=== PATIENT | male | born 1975 | race Caucasian/White ===

== ENCOUNTER → 2016-10-22 | Outpatient (CLI) | payer OTHER ==
--- NOTE | 2016-10-22 21:24 | MR ---
EXAMINATION TYPE: MR foot RT wo con DATE OF EXAM: 10/22/2016 5:43 PM COMPARISON: Right foot ultrasound report right foot x-ray April 11, 2015. August 03, 2016. HISTORY: Chronic pain R plantar mid foot per order. Burning and hurting pain for one year per patient . Standard multiplanar, multisequence MRI departmental protocol Multiplanar, multisequence images of the right foot were acquired. FINDINGS: Osseous structures are intact. Joint spaces are maintained. No abnormal bone marrow signal intensity is identified. No significant spurring is seen. Visualized plantar fascia is unremarkable. No worrisome solid or cystic mass or fluid collection is seen. Muscle bulk is preserved. Tendons appe ar grossly intact. IMPRESSION: No significant finding is seen to account for patient's symptoms with particular attention to midfoot plantar surface.
== END | disposition home or self-care (01) ==
LOC: RADMRIMAIN 15:49
PROVIDERS: ATTEND Podiatrist Foot & Ankle Surgery
DX: M79.671 Pain in right foot (principal)

== ENCOUNTER 2017-03-06 19:35 | Emergency (ER) | payer OTHER ==
--- NOTE | 2017-03-06 20:48 | ED ---
Extremity Problem HPI - General Chief complaint: Extremity Problem,Nontraumatic Stated complaint: Right Foot Pain Time Seen by Provider: 03/06/17 20:19 Source: patient Mode of arrival: ambulatory Limitations: no limitations - Related Data Home Medications Medication Instructions Recorded Confirmed Simvastatin [Simvastatin] 20 mg PO HS 03/15/16 08/09/16 Cetirizine HCl [Zyrtec] 10 mg PO DAILY 07/11/16 08/09/16 Citalopram Hydrobromide 20 mg PO DAILY 07/11/16 08/09/16 [Citalopram HBr] Omeprazole 40 mg PO DAILY 07/11/16 08/09/16 Baclofen 10 mg PO HS 08/09/16 08/09/16 Pregabalin [Lyrica] 75 mg PO TID 08/09/16 08/09/16 traMADol HCL [Ultram] 50 mg PO TID PRN 08/09/16 08/09/16 traMADol HCL [Ultram] 100 mg PO TID PRN 08/09/16 08/09/16 traZODone HCL 50 mg PO HS 08/09/16 08/09/16 Previous Rx's Medication Instructions Recorded predniSONE 50 mg PO DAILY #7 tab 08/09/16 valACYclovir HCL [Valtrex] 1,000 mg PO Q8HR #30 tab 08/09/16 Cephalexin [Keflex] 500 mg PO Q8HR #21 cap 03/06/17 Allergies Allergy/AdvReac Type Severity Reaction Status Date / Time morphine Allergy Unknown Verified 03/06/17 19:55 Review of Systems ROS Statement: Those systems with pertinent positive or pertinent negative responses have been documented in the HPI. ROS Other: All systems not noted in ROS Statement are negative. Past Medical History Past Medical History: Hyperlipidemia, Hypertension Additional Past Medical History / Comment(s): chronic back pain and hip pain History of Any Multi-Drug Resistant Organisms: None Reported Past Surgical History: No Surgical Hx Reported Past Psychological History: No Psychological Hx Reported Smoking Status: Never smoker Past Alcohol Use History: None Reported Past Drug Use History: None Reported General Exam Limitations: no limitations Course Vital Signs 03/06/17 19:51 Temperature 98.9 F Pulse Rate 81 Respiratory 20 Rate Blood Pressure 122/75 O2 Sat by Pulse 98 Oximetry Disposition Clinical Impression: Ingrown right greater toenail Disposition: HOME SELF-CARE Condition: Good Instructions: Ingrown Nail (ED) Additional Instructions: Patient advised to take the antibiotics. Continue to do warm soaks with the foot. Pad shoes with extra gauze pads to prevent the toes from rubbing. Follow-up with her telecommunications clerk. Return to the emergency department if any alarming signs or symptoms occur. Prescriptions: Cephalexin [Keflex] 500 mg PO Q8HR #21 cap Referrals: Batool Alfred MD [Primary Care Provider] - 1-2 days Time of Disposition: 20:47
[2017-03-06 20:54] VITALS: BP 142/74; PULSE 67; RESP 16; TEMP 97.8
== END 2017-03-06 20:53 | disposition home or self-care (01) ==
LOC: EC 19:35
DX: L60.0 Ingrowing nail (principal); E78.5 Hyperlipidemia, unspecified; I10 Essential (primary) hypertension; G89.29 Other chronic pain; Z79.899 Other long term (current) drug therapy; Z88.5 Allergy status to narcotic agent
CPT/HCPCS: 99283

== ENCOUNTER 2017-03-31 16:30 | Emergency (ER) | payer OTHER ==
[2017-03-31 16:40] VITALS: BP 119/78; PULSE 70; RESP 20; TEMP 97.5
[2017-03-31] MEDS ORDERED: PROPARACAINE 0.5% OPHTH DROPS 15 ML BTL RIGHT EYE STA (16:43)
--- NOTE | 2017-03-31 16:59 | ED ---
Eye Problem HPI - General Chief complaint: Eye Problems Stated complaint: FB in Eye Time Seen by Provider: 03/31/17 16:42 Source: patient Mode of arrival: ambulatory Limitations: no limitations - History of Present Illness Initial comments: 42-year-old male patient presents to emergency department today for evaluation of right eye pain. Patient states that yesterday he was working with drywall and fixed-the ceiling, he states he placed tape around the pipe and tried to dry it with the blow dryer which blew debris on his face. Patient states that he has felt like something has been in his eye since. Patient states it is difficult to keep the eye open. He did go see his primary care physician looked in the eye with a light and stated that he didn't see any foreign bodies. Patient has been using artificial tears. Patient states that he did flush the eye earlier today with water and did see something come out, but he continued to have pain. Patient states he is having some blurred vision in the eye. Denies any headache, fever, chills, or dizziness. He denies any drainage from the eye, rash or lesion to the area of the eye. Patient states his last tetanus vaccine was within 5 years. - Related Data Home Medications Medication Instructions Recorded Confirmed Simvastatin [Simvastatin] 20 mg PO HS 03/15/16 08/09/16 Cetirizine HCl [Zyrtec] 10 mg PO DAILY 07/11/16 08/09/16 Citalopram Hydrobromide 20 mg PO DAILY 07/11/16 08/09/16 [Citalopram HBr] Omeprazole 40 mg PO DAILY 07/11/16 08/09/16 Baclofen 10 mg PO HS 08/09/16 08/09/16 Pregabalin [Lyrica] 75 mg PO TID 08/09/16 08/09/16 traMADol HCL [Ultram] 50 mg PO TID PRN 08/09/16 08/09/16 traMADol HCL [Ultram] 100 mg PO TID PRN 08/09/16 08/09/16 traZODone HCL 50 mg PO HS 08/09/16 08/09/16 Previous Rx's Medication Instructions Recorded predniSONE 50 mg PO DAILY #7 tab 08/09/16 valACYclovir HCL [Valtrex] 1,000 mg PO Q8HR #30 tab 08/09/16 Cephalexin [Keflex] 500 mg PO Q8HR #21 cap 03/06/17 Allergies Allergy/AdvReac Type Severity Reaction Status Date / Time morphine Allergy Unknown Verified 03/31/17 16:36 Review of Systems ROS Statement: Those systems with pertinent positive or pertinent negative responses have been documented in the HPI. ROS Other: All systems not noted in ROS Statement are negative. Past Medical History Past Medical History: Hyperlipidemia, Hypertension Additional Past Medical History / Comment(s): chronic back pain and hip pain History of Any Multi-Drug Resistant Organisms: None Reported Past Surgical History: No Surgical Hx Reported Past Psychological History: No Psychological Hx Reported Smoking Status: Never smoker Past Alcohol Use History: None Reported Past Drug Use History: None Reported General Exam Limitations: no limitations General appearance: alert, in no apparent distress Head exam: Present: atraumatic, normocephalic, normal inspection Eye exam: Present: normal appearance, PERRL, EOMI, other (Wood's lamp exam with foreseen stain was completed, no evidence of corneal or conjunctival abrasion. No evidence of foreign body.). Absent: scleral icterus, conjunctival injection , periorbital swelling, periorbital tenderness ENT exam: Present: normal exam, normal oropharynx, mucous membranes moist Respiratory exam: Present: normal lung sounds bilaterally. Absent: respiratory distress, wheezes, rales, rhonchi, stridor Cardiovascular Exam: Present: regular rate, normal rhythm, normal heart sounds. Absent: systolic murmur, diastolic murmur, rubs, gallop, clicks Neurological exam: Present: alert, oriented X3, CN II-XII intact Psychiatric exam: Present: normal affect, normal mood Skin exam: Present: warm, dry, intact, normal color. Absent: rash Course Vital Signs 03/31/17 16:37 Temperature 97.5 F L Pulse Rate 70 Respiratory 20 Rate Blood Pressure 119/78 O2 Sat by Pulse 97 Oximetry Medical Decision Making - Medical Decision Making 42-year-old male patient presented to emergency department today for evaluation of right eye discomfort. Patient states that pain is improved with proparacaine drops. Did perform Wood's lamp exam with fluorescein stain and did not see any corneal or conjunctival abrasion or foreign body. Dr. Yarbrough was in to evaluate the patient is concerned that he may have had a conjunctival abrasion is healing. Patient be discharged home with tobramycin drops to be administered 4 times daily. Patient instructed to follow up with ophthalmology if symptoms don't improve over the next 1-2 days. Instructed to return immediately for any new, worsening, or concerning symptoms. Disposition Clinical Impression: Conjunctival abrasion Disposition: HOME SELF-CARE Condition: Good Instructions: Eye Pain (ED) Additional Instructions: Put one drop to the right eye 4 times daily. Follow-up with youth director if symptoms persist. Follow-up with your primary care physician for recheck in 1- 2 days. Return immediately for any new, worsening, or concerning symptoms. Referrals: Batool Alfred MD [Primary Care Provider] - 1-2 days Time of Disposition: 18:06
[2017-03-31] MEDS ORDERED: TOBRAMYCIN 0.3% OPHTH DROPS 5 ML BTL RIGHT EYE STA (18:06)
== END 2017-03-31 18:15 | disposition home or self-care (01) ==
LOC: EC 16:30
DX: S05.00XA Injury of conjunctiva and corneal abrasion without foreign body, unspecified eye, initial encounter (principal); E78.5 Hyperlipidemia, unspecified; I10 Essential (primary) hypertension; Z79.899 Other long term (current) drug therapy; Z88.5 Allergy status to narcotic agent; X58.XXXA Exposure to other specified factors, initial encounter
CPT/HCPCS: 99283

== ENCOUNTER 2017-04-25 10:04 | Emergency (ER) | payer OTHER ==
[2017-04-25 10:15] VITALS: RESP 18
[2017-04-25] MEDS ORDERED: ORPHENADRINE 30 MG/ML 2 ML VIAL IM STA (10:38)
[2017-04-25] MEDS ORDERED: KETOROLAC 60 MG/2 ML VIAL IM STA (10:38)
--- NOTE | 2017-04-25 10:48 | ED ---
General Adult HPI - General Chief complaint: Extremity Problem,Nontraumatic Stated complaint: RT SHOULDER/ARM PAIN, NUMBNESS Time Seen by Provider: 04/25/17 10:17 Source: patient, RN notes reviewed Mode of arrival: ambulatory Limitations: no limitations - History of Present Illness Initial comments: 42-year-old male presents to the emergency department with a chief complaint of right-sided shoulder pain. Patient states he had this pain doesn't radiate to his shoulder and down his arm. He states he'll get waves of numbness and tingling and burning type discomfort. Patient states sometimes it feels weak sometimes it feels normal. Denies any falls or injuries with this. Patient states he has not had anything like this in the past. Patient was concerned due to his discomfort so he thought that he should be evaluated. Patient states if he moves his hand it seems to be better identified he just sit still. Patient denies any recent fever, chills, shortness of breath, chest pain, back pain, abdominal pain, nausea vomiting, dysuria or hematuria, constipation or diarrhea, headaches or visual changes, or any other current symptoms. - Related Data Home Medications Medication Instructions Recorded Confirmed Simvastatin [Simvastatin] 20 mg PO HS 03/15/16 08/09/16 Cetirizine HCl [Zyrtec] 10 mg PO DAILY 07/11/16 08/09/16 Citalopram Hydrobromide 20 mg PO DAILY 07/11/16 08/09/16 [Citalopram HBr] Omeprazole 40 mg PO DAILY 07/11/16 08/09/16 Baclofen 10 mg PO HS 08/09/16 08/09/16 Pregabalin [Lyrica] 75 mg PO TID 08/09/16 08/09/16 traMADol HCL [Ultram] 50 mg PO TID PRN 08/09/16 08/09/16 traMADol HCL [Ultram] 100 mg PO TID PRN 08/09/16 08/09/16 traZODone HCL 50 mg PO HS 08/09/16 08/09/16 Previous Rx's Medication Instructions Recorded predniSONE 50 mg PO DAILY #7 tab 08/09/16 valACYclovir HCL [Valtrex] 1,000 mg PO Q8HR #30 tab 08/09/16 Cephalexin [Keflex] 500 mg PO Q8HR #21 cap 03/06/17 Orphenadrine [Norflex] 100 mg PO Q12H #10 tablet.er 04/25/17 predniSONE 50 mg PO DAILY #5 tab 04/25/17 Allergies Allergy/AdvReac Type Severity Reaction Status Date / Time morphine Allergy Unknown Verified 04/25/17 10:15 Review of Systems ROS Statement: Those systems with pertinent positive or pertinent negative responses have been documented in the HPI. ROS Other: All systems not noted in ROS Statement are negative. Past Medical History Past Medical History: Hyperlipidemia, Hypertension Additional Past Medical History / Comment(s): chronic back pain and hip pain History of Any Multi-Drug Resistant Organisms: None Reported Past Surgical History: No Surgical Hx Reported Past Psychological History: No Psychological Hx Reported Smoking Status: Never smoker Past Alcohol Use History: None Reported Past Drug Use History: None Reported General Exam - General Exam Comments Initial Comments: General: The patient is awake and alert, in no distress, and does not appear acutely ill. Eye: Pupils are equal, round and reactive to light, extra-ocular movements are intact; there is normal conjunctiva bilaterally. No signs of icterus. Ears, nose, mouth and throat: There are moist mucous membranes and no oral lesions. Neck: The neck is supple, there is mild tenderness on the right lateral aspect of the neck. Cardiovascular: There is a regular rate and rhythm. No murmur, rub or gallop is appreciated. Respiratory: Lungs are clear to auscultation, respirations are non-labored, breath sounds are equal. No wheezes, stridor, rales, or rhonchi. Gastrointestinal: Soft, non-distended, non-tender abdomen without masses or organomegaly noted. There is no rebound or guarding present. No CVA tenderness. Bowel sounds are unremarkable. Back: There is no tenderness to palpation in the midline. There is no obvious deformity. No rashes noted. Musculoskeletal: Normal ROM, no tenderness, There is no pedal edema. There is no calf tenderness or swelling. Sensation intact. Pulses equal bilaterally 2+. Neurological: CN II-XII intact, There are no obvious motor or sensory deficits. Coordination appears grossly intact. Speech is normal. Skin: Skin is warm and dry and no rashes or lesions are noted. Psychiatric: Cooperative, appropriate mood & affect, normal judgment. Limitations: no limitations Course Vital Signs 04/25/17 10:13 Temperature 98.5 F Pulse Rate 71 Respiratory 18 Rate Blood Pressure 130/71 O2 Sat by Pulse 97 Oximetry Medical Decision Making - Medical Decision Making 42-year-old male presents emergency room chief complaint of what appears to be a cervical radiculopathy. X-ray is reviewed. Since patient steroids and instructions for home. We discussed. Discussed follow-up and he was given on its own return parameters on the patient's questions. He stated that he understood any significant plan. All questions answered. He'll be discharged. - Radiology Data Radiology results: report reviewed, image reviewed Disposition Clinical Impression: Right cervical radiculopathy Disposition: HOME SELF-CARE Condition: Stable Instructions: Cervical Radiculopathy (ED) Additional Instructions: Please use medication as discussed. Please follow up with family doctor if symptoms have not improved over the next two days. Please return to the emergency room if your symptoms increase or worsen or for any other concerns. Prescriptions: Orphenadrine [Norflex] 100 mg PO Q12H #10 tablet.er predniSONE 50 mg PO DAILY #5 tab Referrals: Batool Alfred MD [Primary Care Provider] - 1-2 days Time of Disposition: 11:16
--- NOTE | 2017-04-25 11:14 | XR ---
EXAMINATION TYPE: XR cervical spine comp DATE OF EXAM: 04/25/2017 TECHNIQUE: Frontal, lateral, oblique, swimmers, and open mouth view of the cervical spine are obtaine d. HISTORY: Pain COMPARISON: None FINDINGS: The cervical spine is visualized in its entirety from C1 thru the top of T1 level, it is s atisfactory in alignment without evidence of acute fracture or dislocation. The pre-vertebral soft t issue appears within normal limits. The C1-C2 articulation is within normal limits on the open mouth view. The oblique images are within normal limits. Multilevel uncovertebral hypertrophy is seen, mo st pronounced at at C3-C4 on the left creating mild left neural foraminal narrowing. IMPRESSION: 1. No acute fracture or dislocation is seen in the cervical spine. 2. Mild left neural foraminal narrowing at C3-C4 as a result of uncovertebral hypertrophy.
[2017-04-25 11:26] VITALS: BP 115/71; PULSE 61; TEMP 97.8
== END 2017-04-25 11:26 | disposition home or self-care (01) ==
LOC: EC 10:04
DX: M54.12 Radiculopathy, cervical region (principal); I10 Essential (primary) hypertension; E78.5 Hyperlipidemia, unspecified; Z79.899 Other long term (current) drug therapy; Z88.5 Allergy status to narcotic agent
CPT/HCPCS: 72050; 99283; 96372 ×2; J2360; J1885

== ENCOUNTER 2017-07-07 09:36 | Emergency (ER) | payer OTHER ==
[2017-07-07 10:09] VITALS: BP 125/81; PULSE 73; RESP 16; TEMP 98.2
[2017-07-07] MEDS ORDERED: predniSONE 20 MG TAB PO STA (10:24)
[2017-07-07] MEDS ORDERED: HYDROcodone/APAP 5-325MG 1 EACH TAB PO STA (10:24)
--- NOTE | 2017-07-07 10:32 | ED ---
Upper Extremity HPI - General Chief Complaint: Extremity Injury, Upper Stated Complaint: [facility] Source: patient Mode of arrival: ambulatory Limitations: no limitations - History of Present Illness Initial Comments: Patient is a 42-year-old male percents for evaluation for pain/numbness in his left hand. Past medical history as below. Patient has an established history of a pinched nerve. He is in the process of working with a neurologist to get further nerve testing for evaluation for carpal tunnel syndrome. Patient stated that he recently started working. When he was at work yesterday he was washing some dishes and felt like he was dropping some of the dishes while performing those tasks. Stated that he is also having pain to the hands. Worse in the index and middle fingers. He's had symptoms like this before in the past. Greatly improved with oral steroids. Denies trauma to the hand or the neck. He is right handed. Denies any other systemic symptoms such as fever , chills, headache, changes of vision, URI symptoms, shortness of breath, cough , chest pain, nausea, vomiting, diarrhea, pain or burning with urination. - Related Data Home Medications Medication Instructions Recorded Confirmed Simvastatin [Simvastatin] 20 mg PO HS 03/15/16 08/09/16 Cetirizine HCl [Zyrtec] 10 mg PO DAILY 07/11/16 08/09/16 Citalopram Hydrobromide 20 mg PO DAILY 07/11/16 08/09/16 [Citalopram HBr] Omeprazole 40 mg PO DAILY 07/11/16 08/09/16 Baclofen 10 mg PO HS 08/09/16 08/09/16 Pregabalin [Lyrica] 75 mg PO TID 08/09/16 08/09/16 traMADol HCL [Ultram] 50 mg PO TID PRN 08/09/16 08/09/16 traMADol HCL [Ultram] 100 mg PO TID PRN 08/09/16 08/09/16 traZODone HCL 50 mg PO HS 08/09/16 08/09/16 Previous Rx's Medication Instructions Recorded predniSONE 50 mg PO DAILY #7 tab 08/09/16 valACYclovir HCL [Valtrex] 1,000 mg PO Q8HR #30 tab 08/09/16 Cephalexin [Keflex] 500 mg PO Q8HR #21 cap 03/06/17 Orphenadrine [Norflex] 100 mg PO Q12H #10 tablet.er 04/25/17 predniSONE 50 mg PO DAILY #5 tab 04/25/17 HYDROcodone/APAP 5-325MG [[place] 1 tab PO Q8H PRN #10 tab 07/07/17 5-325] predniSONE 60 mg PO DAILY 5 Days #15 tab 07/07/17 Allergies Allergy/AdvReac Type Severity Reaction Status Date / Time morphine Allergy Unknown Verified 04/25/17 10:15 Review of Systems ROS Statement: Those systems with pertinent positive or pertinent negative responses have been documented in the HPI. ROS Other: All systems not noted in ROS Statement are negative. Past Medical History Past Medical History: Hyperlipidemia, Hypertension Additional Past Medical History / Comment(s): chronic back pain and hip pain History of Any Multi-Drug Resistant Organisms: None Reported Past Surgical History: No Surgical Hx Reported Past Psychological History: Depression Smoking Status: Never smoker Past Alcohol Use History: None Reported Past Drug Use History: None Reported General Exam Limitations: no limitations General appearance: alert, in no apparent distress Head exam: Present: atraumatic, normocephalic, normal inspection Eye exam: Present: normal appearance, PERRL, EOMI. Absent: scleral icterus, conjunctival injection, periorbital swelling ENT exam: Present: normal exam, mucous membranes moist Neck exam: Present: normal inspection, other (Full range of motion of the neck. No pain with full extension or flexion. No midline tenderness.). Absent: tenderness, meningismus, lymphadenopathy Respiratory exam: Present: normal lung sounds bilaterally. Absent: respiratory distress, wheezes, rales, rhonchi, stridor Cardiovascular Exam: Present: regular rate, normal rhythm, normal heart sounds, other (2 out of 2 radial pulses b/l. Cap refill <3 seconds on the left hand). Absent: systolic murmur, diastolic murmur, rubs, gallop, clicks GI/Abdominal exam: Present: soft, normal bowel sounds. Absent: distended, tenderness, guarding, rebound, rigid Extremities exam: Present: normal inspection, full ROM, normal capillary refill , other (Full range of motion of the left shoulder/elbow/wrist). Absent: tenderness, pedal edema, joint swelling, calf tenderness Back exam: Present: normal inspection Neurological exam: Present: alert, oriented X3, CN II-XII intact, normal gait, other (4-5 compressed gases tester strength with the left hand compared to the right. He has sensation in all fingertips. Questionable component of muscle wasting to the thenar eminence. Full flexion and extension of the left wrist. Positive prayer sign. Negative Tinnel's sign. Cranial nerves II through XII grossly intact without focal neurological deficits. No dysarthria or aphasia. No ataxia of the upper extremity is bilaterally. Gait is intact) Psychiatric exam: Present: normal affect, normal mood Skin exam: Present: warm, dry, intact, normal color. Absent: rash Course Vital Signs 07/07/17 10:07 Temperature 98.2 F Pulse Rate 73 Respiratory 16 Rate Blood Pressure 125/81 O2 Sat by Pulse 97 Oximetry Medical Decision Making - Medical Decision Making Patient is a 42-year-old male percents for evaluation for pain and diminished sensation to the left hands. Dropping items in his left hand. There are some signs and symptoms are consistent with carpal tunnel syndrome. Has a history of this before in the past and is in the process of working with a neurologist ( Armand) for further testing. Had an appointment this past Tuesday that he was unable to go to. Has a appointment in early July. Offered further imaging which the patient declined. We'll order a dose of [place] and 60 mg by mouth prednisone which is tolerated in the past. Prescription for 5 days of prednisone and 10 tablets of [place]. We'll call his neurologist tomorrow to try to set up a sooner appointment. Discussed specific signs and symptoms on when to return to the emergency department for further evaluation. Comfortable with discharge home and will follow-up. Disposition Clinical Impression: Numbness and tingling in left hand Disposition: HOME SELF-CARE Condition: Good Instructions: Paresthesia (ED) Prescriptions: HYDROcodone/APAP 5-325MG [[place] 5-325] 1 tab PO Q8H PRN #10 tab PRN Reason: Pain predniSONE 60 mg PO DAILY 5 Days #15 tab Referrals: Batool Alfred MD [Primary Care Provider] - 1-2 days Amarjit Acuna MD [STAFF PHYSICIAN] - 1-2 days
== END 2017-07-07 10:47 | disposition home or self-care (01) ==
LOC: EC 09:36
DX: R20.2 Paresthesia of skin (principal); E78.5 Hyperlipidemia, unspecified; I10 Essential (primary) hypertension; F32.9 Major depressive disorder, single episode, unspecified; Z88.5 Allergy status to narcotic agent; Z79.899 Other long term (current) drug therapy
CPT/HCPCS: 99283; J7512

== ENCOUNTER → 2017-08-20 | Outpatient (CLI) | payer OTHER ==
--- NOTE | 2017-08-20 22:58 | XR ---
EXAMINATION TYPE: XR lumbar spine 2 or 3V DATE OF EXAM: 08/20/2017 CLINICAL HISTORY: Persistent low back pain. TECHNIQUE: Frontal and lateral images of the lumbar spine are obtained. COMPARISON: CT lumbar spine May 27, 2016. Lumbar spine x-ray March 15, 2016 FINDINGS: There are 5 lumbar type vertebral bodies identified. Transitional-type L6 vertebra is rede monstrated. The lumbar spine shows satisfactory alignment without evidence of acute fracture or dislo cation. Vertebral body heights and disk space heights remain within normal limits. There is persisten t pars defects L5 level without significant spondylolisthesis. The overlying soft tissue appears unr emarkable. IMPRESSION: Persistent bilateral pars defects L5 level without significant spondylolisthesis. No sign ificant change from prior studies.
--- NOTE | 2017-08-20 22:59 | XR ---
EXAMINATION TYPE: XR Hip RT and AP Pelvis DATE OF EXAM: 08/20/2017 COMPARISON: NONE HISTORY: Pelvic and right hip pain after fall injury a few days ago. TECHNIQUE: A single AP view of the pelvis is obtained. Two views of the right hip are obtained. FINDINGS: There is no acute fracture/dislocation evident in the pelvis. The sacroiliac joints appea r symmetric and unremarkable. There is symmetric mild to moderate axial joint space loss in both hips . The overlying soft tissue appears unremarkable. Two views of right hip show no acute fracture or dislocation. No focal lytic or sclerotic lesion see n in the proximal right femur. The overlying soft tissue is unremarkable. IMPRESSION: There is no acute fracture or dislocation in the pelvis or right hip.
== END | disposition home or self-care (01) ==
LOC: RADXRMAIN 10:34
PROVIDERS: ATTEND Family Medicine
DX: M54.5 Low back pain (principal); M25.551 Pain in right hip
CPT/HCPCS: 72100; 73502

== ENCOUNTER 2017-09-10 13:17 | Observation (INO) | payer OTHER ==
[2017-09-10] MEDS ORDERED: SODIUM CHLORIDE 0.9% 1,000 ML IV STA (14:01)
--- NOTE | 2017-09-10 14:05 | ED ---
General Adult HPI - General Chief complaint: Headache Stated complaint: LARSON Time Seen by Provider: 09/10/17 13:45 Source: patient, family, RN notes reviewed Mode of arrival: ambulatory Limitations: no limitations - History of Present Illness Initial comments: Patient is a pleasant 42-year-old male presenting to the emergency Department with complaints of chest pain and headache. Symptoms have been asked and waning over the past several days. Symptoms are mild at this time. Symptoms do not necessarily go together. Headache has been gradual and intermittent. Headache does become somewhat severe at times. Headache is described as pressure and diffuse. No weakness. No confusion. No loss of sensation. Chest discomfort is also described as pressure in the chest. No radiation. No dyspnea. Patient did have several episodes of nausea vomiting prior to onset of symptoms. No nausea at this time. No vomiting in the past day or 2. No diaphoresis. - Related Data Home Medications Medication Instructions Recorded Confirmed Simvastatin [Simvastatin] 20 mg PO HS 03/15/16 09/10/17 Citalopram Hydrobromide [CeleXA] 40 mg PO DAILY 09/10/17 09/10/17 Methocarbamol [Robaxin] 750 mg PO BID PRN 09/10/17 09/10/17 Naproxen 500 mg PO Q12HR PRN 09/10/17 09/10/17 Allergies Allergy/AdvReac Type Severity Reaction Status Date / Time morphine Allergy Unknown Verified 09/10/17 14:15 Review of Systems ROS Statement: Those systems with pertinent positive or pertinent negative responses have been documented in the HPI. ROS Other: All systems not noted in ROS Statement are negative. Constitutional: Denies: fever Eyes: Denies: eye pain ENT: Denies: ear pain Respiratory: Denies: cough Cardiovascular: Denies: chest pain Endocrine: Denies: fatigue Gastrointestinal: Reports: vomiting (Resolved). Denies: abdominal pain Genitourinary: Denies: dysuria Musculoskeletal: Denies: back pain Skin: Denies: rash Neurological: Reports: headache. Denies: weakness, numbness, confusion Past Medical History Past Medical History: Hyperlipidemia, Hypertension Additional Past Medical History / Comment(s): chronic back pain and hip pain History of Any Multi-Drug Resistant Organisms: None Reported Past Surgical History: No Surgical Hx Reported Past Psychological History: Depression Smoking Status: Never smoker Past Alcohol Use History: None Reported Past Drug Use History: None Reported General Exam Limitations: no limitations General appearance: alert, in no apparent distress Head exam: Present: atraumatic Eye exam: Present: normal appearance, PERRL, EOMI. Absent: nystagmus ENT exam: Present: normal oropharynx Neck exam: Present: normal inspection Respiratory exam: Present: normal lung sounds bilaterally. Absent: chest wall tenderness Cardiovascular Exam: Present: regular rate, normal rhythm Expanded Peripheral pulses: 2+: Radial (R), Radial (L), Posterior Tibialis (R), Posterior Tibialis (L) GI/Abdominal exam: Present: soft. Absent: distended, tenderness Extremities exam: Present: normal inspection. Absent: pedal edema, calf tenderness Neurological exam: Present: alert, oriented X3, CN II-XII intact. Absent: motor sensory deficit Expanded Speech: Present: fluid speech Cranial nerves: EOM's Intact: Normal, Facial Sensation: Normal Sensory exam: Upper Extremity Light Touch: Normal, Lower Extremity Light Touch: Normal Motor strength exam: RUE: 5, LUE: 5, RLE: 5, LLE: 5 Eye Response: (4) open spontaneously Motor Response: (6) obeys commands Verbal Response: (5) oriented Psychiatric exam: Present: normal affect, normal mood Skin exam: Present: normal color Course Vital Signs 09/10/17 09/10/17 09/10/17 13:23 14:55 15:19 Temperature 97.7 F Pulse Rate 90 64 72 Respiratory 18 16 16 Rate Blood Pressure 138/84 144/73 131/81 O2 Sat by Pulse 99 96 95 Oximetry EKG Findings - EKG Comments: EKG Findings:: Normal sinus rhythm 68. IL 162. QRS 116. QT 426. QTc 450 to. Left anterior fascicular block. LVH. No acute ST change. Medical Decision Making - Medical Decision Making Patient reevaluated and resting comfortably in bed. No chest discomfort at this time. Patient still complains of headache and is provided pain medicine for this. Patient and family updated on results and plan. Case was discussed in detail with Dr. Carver, who will admit for Hospital call. - Lab Data Result diagrams: 09/10/17 14:45 09/10/17 14:45 Lab Results 09/10/17 09/10/17 09/10/17 Range/Units 14:45 14:45 14:45 WBC 7.4 (3.8-10.6) k/uL RBC 5.47 (4.30-5.90) m/uL Hgb 15.8 (13.0-17.5) gm/dL Hct 46.9 (39.0-53.0) % MCV 85.8 (80.0-100.0) fL MCH 28.9 (25.0-35.0) pg MCHC 33.7 (31.0-37.0) g/dL RDW 13.0 (11.5-15.5) % Plt Count 284 (150-450) k/uL Neutrophils % 68 % Lymphocytes % 19 % Monocytes % 8 % Eosinophils % 3 % Basophils % 1 % Neutrophils # 5.0 (1.3-7.7) k/uL Lymphocytes # 1.4 (1.0-4.8) k/uL Monocytes # 0.6 (0-1.0) k/uL Eosinophils # 0.2 (0-0.7) k/uL Basophils # 0.1 (0-0.2) k/uL PT (9.0-12.0) sec INR (<1.2) APTT (22.0-30.0) sec D-Dimer (<0.60) mg/L FEU Sodium 145 (137-145) mmol/L Potassium 4.1 (3.5-5.1) mmol/L Chloride 107 (98-107) mmol/L Carbon Dioxide 26 (22-30) mmol/L Anion Gap 12 mmol/L BUN 14 (9-20) mg/dL Creatinine 1.10 (0.66-1.25) mg/dL Est GFR (MDRD) Af Amer >60 (>60 ml/min/1.73 sqM) Est GFR (MDRD) Non-Af >60 (>60 ml/min/1.73 sqM) Glucose 117 H (74-99) mg/dL Calcium 9.6 (8.4-10.2) mg/dL Magnesium 2.0 (1.6-2.3) mg/dL Total Bilirubin 0.7 (0.2-1.3) mg/dL AST 31 (17-59) U/L ALT 28 (21-72) U/L Alkaline Phosphatase 79 (38-126) U/L Total Creatine Kinase 72 (55-170) U/L CK-MB (CK-2) <0.2 (0.0-2.4) ng/mL CK-MB (CK-2) Rel Index Troponin I <0.012 (0.000-0.034) ng/mL Total Protein 7.1 (6.3-8.2) g/dL Albumin 4.1 (3.5-5.0) g/dL 09/10/17 Range/Units 14:45 WBC (3.8-10.6) k/uL RBC (4.30-5.90) m/uL Hgb (13.0-17.5) gm/dL Hct (39.0-53.0) % MCV (80.0-100.0) fL MCH (25.0-35.0) pg MCHC (31.0-37.0) g/dL RDW (11.5-15.5) % Plt Count (150-450) k/uL Neutrophils % % Lymphocytes % % Monocytes % % Eosinophils % % Basophils % % Neutrophils # (1.3-7.7) k/uL Lymphocytes # (1.0-4.8) k/uL Monocytes # (0-1.0) k/uL Eosinophils # (0-0.7) k/uL Basophils # (0-0.2) k/uL PT 10.5 (9.0-12.0) sec INR 1.1 (<1.2) APTT 21.6 L (22.0-30.0) sec D-Dimer 0.27 (<0.60) mg/L FEU Sodium (137-145) mmol/L Potassium (3.5-5.1) mmol/L Chloride (98-107) mmol/L Carbon Dioxide (22-30) mmol/L Anion Gap mmol/L BUN (9-20) mg/dL Creatinine (0.66-1.25) mg/dL Est GFR (MDRD) Af Amer (>60 ml/min/1.73 sqM) Est GFR (MDRD) Non-Af (>60 ml/min/1.73 sqM) Glucose (74-99) mg/dL Calcium (8.4-10.2) mg/dL Magnesium (1.6-2.3) mg/dL Total Bilirubin (0.2-1.3) mg/dL AST (17-59) U/L ALT (21-72) U/L Alkaline Phosphatase (38-126) U/L Total Creatine Kinase (55-170) U/L CK-MB (CK-2) (0.0-2.4) ng/mL CK-MB (CK-2) Rel Index Troponin I (0.000-0.034) ng/mL Total Protein (6.3-8.2) g/dL Albumin (3.5-5.0) g/dL - Radiology Data Radiology results: report reviewed (Computed tomography scan the brain shows no acute process), image reviewed (Chest x-ray shows no acute process.) Disposition Clinical Impression: Chest pain, Cephalgia Disposition: ADMITTED IP TO THIS [facility] Referrals: Batool Alfred MD [Primary Care Provider] - 1-2 days Decision Time: 16:23
[2017-09-10 15:06] LABS: Basophils # (A) 0.1 k/uL (0-0.2); Basophils % (A) 1 %; Eosinophils # (A) 0.2 k/uL (0-0.7); Eosinophils % (A) 3 %; HCT 46.9 % (39.0-53.0); HGB 15.8 gm/dL (13.0-17.5); Lymphocytes # (A) 1.4 k/uL (1.0-4.8); Lymphocytes % (A) 19 %; MCH 28.9 pg (25.0-35.0); MCHC 33.7 g/dL (31.0-37.0); MCV 85.8 fL (80.0-100.0); Mean Platelet Volume 7.4; Monocytes # (A) 0.6 k/uL (0-1.0); Monocytes % (A) 8 %; Neutrophils % (A) 68 %; Platelet Count 284 k/uL (150-450); RBC 5.47 m/uL (4.30-5.90); WBC 7.4 k/uL (3.8-10.6)
--- NOTE | 2017-09-10 15:11 | XR ---
EXAMINATION TYPE: XR chest 2V DATE OF EXAM: 09/10/2017 COMPARISON: Chest x-ray April 25, 2016. HISTORY: Chest pain per order. TECHNIQUE: Frontal and lateral views of the chest are obtained. FINDINGS: There is no focal air space opacity, pleural effusion, or pneumothorax seen. The cardiac silhouette size is upper limits of normal. The osseous structures are intact. IMPRESSION: No acute cardiopulmonary process. No significant change from prior.
--- NOTE | 2017-09-10 15:12 | CT ---
EXAMINATION TYPE: CT brain wo con DATE OF EXAM: 09/10/2017 COMPARISON: CT brain August 09, 2016 HISTORY: LARSON, dizziness CT DLP: 976.7 mGycm. Automated Exposure Control for Dose Reduction was Utilized. TECHNIQUE: CT scan of the head is performed without contrast. FINDINGS: There is no acute intracranial hemorrhage, mass effect, or midline shift identified. The ventricles and sulci are within normal limits in size. Lacy-white matter differentiation is maintai ipedad. The globes are intact and the visualized sinuses are clear. IMPRESSION: No acute intracranial hemorrhage, mass effect, or midline shift is seen. Unremarkable st udy. No significant change from prior.
[2017-09-10 15:15] LABS: ALT 28 U/L (21-72); AST 31 U/L (17-59); Albumin 4.1 g/dL (3.5-5.0); Alkaline Phosphatase 79 U/L (38-126); Anion Gap 12 mmol/L; Blood Urea Nitrogen 14 mg/dL (9-20); Calcium 9.6 mg/dL (8.4-10.2); Carbon Dioxide 26 mmol/L (22-30); Chloride 107 mmol/L (98-107); Glucose 117 mg/dL (74-99); Potassium 4.1 mmol/L (3.5-5.1); Sodium 145 mmol/L (137-145); Total Bilirubin 0.7 mg/dL (0.2-1.3); Total Protein 7.1 g/dL (6.3-8.2)
[2017-09-10 15:23] LABS: Creatine Kinase 72 U/L (55-170)
[2017-09-10 15:33] LABS: Creatine Kinase MB <0.2 ng/mL (0.0-2.4)
[2017-09-10 15:35] LABS: D-Dimer 0.27 mg/L FEU (<0.60); INR 1.1 (<1.2); Partial Thromboplastin Time 21.6 sec (22.0-30.0); Prothrombin Time 10.5 sec (9.0-12.0)
[2017-09-10 15:56] LABS: Troponin I <0.012 ng/mL (0.000-0.034)
[2017-09-10] MEDS ORDERED: HYDROmorphone 2 MG/ML 1 ML SYRINGE IVP STA (16:00)
[2017-09-10] MEDS ORDERED: ASPIRIN 81 MG PO STA (16:23)
[2017-09-10] MEDS ORDERED: NITROGLYCERIN SL TABS 0.4 MG TAB SUBLINGUAL PRN (16:23)
[2017-09-10] MEDS ORDERED: ONDANSETRON 4 MG/2 ML VIAL IVP PRN (17:02)
[2017-09-10] MEDS ORDERED: NALOXONE 0.4 MG/ML 1 ML VIAL IV PRN (17:02)
[2017-09-10] MEDS ORDERED: ACETAMINOPHEN TAB 325 MG TAB PO PRN (17:02)
[2017-09-10] MEDS ORDERED: METHOCARBAMOL 750 MG TAB PO PRN (17:04)
--- NOTE | 2017-09-10 17:11 | P.HPIM ---
History of Present Illness H&P Date: 09/10/17 Chief Complaint: Chest pain 42-year-old male presenting to the emergency Department with complaints of chest pain and headache. Several days ago he started having severe nausea and vomiting. On he started noticing on and off chest pain, yesterday he was unable to lay down without having chest pain. Chest discomfort is also described as pressure in the chest. The pain is not exertional. Patient is not aware of any alleviating or exacerbating factors. It is located in the middle of the chest without radiation. He denied having any acid reflux burning. Her shortness of breath. Headache has been intermittent, described as pressure and diffuse. No focal weakness or numbness. No confusion, loss of consciousness. Review of Systems 12 point review of system was performed, negative except for HPI Past Medical History Past Medical History: Hyperlipidemia, Hypertension Additional Past Medical History / Comment(s): chronic back pain and hip pain History of Any Multi-Drug Resistant Organisms: None Reported Past Surgical History: No Surgical Hx Reported Past Psychological History: Depression Smoking Status: Never smoker Past Alcohol Use History: None Reported Past Drug Use History: None Reported - Past Family History Father Family Medical History: Hypertension Medications and Allergies Home Medications Medication Instructions Recorded Confirmed Type Simvastatin [Simvastatin] 20 mg PO HS 03/15/16 09/10/17 History Citalopram Hydrobromide [CeleXA] 40 mg PO DAILY 09/10/17 09/10/17 History Methocarbamol [Robaxin] 750 mg PO BID PRN 09/10/17 09/10/17 History Naproxen 500 mg PO Q12HR PRN 09/10/17 09/10/17 History Allergies Allergy/AdvReac Type Severity Reaction Status Date / Time morphine Allergy Unknown Verified 09/10/17 14:15 Physical Exam Vitals: Vital Signs Temp Pulse Resp BP Pulse Ox 09/10/17 16:46 97.6 F 65 16 135/80 100 09/10/17 15:19 72 16 131/81 95 09/10/17 14:55 64 16 144/73 96 09/10/17 13:23 97.7 F 90 18 138/84 99 Intake and Output 09/10/17 09/10/17 09/10/17 06:59 14:59 22:59 Other: Weight 85.275 kg Patient Weight 09/11/17 06:59 Weight 85.275 kg Constitutional: No acute distress, conversant, pleasant Eyes:Anicteric sclerae, moist conjunctiva, no lid-lag, PERRLA, ENMT: Oropharynx clear, no erythema, exudates Neck: Supple, FROM, no masses, or JVD, No carotid bruits, No thyromegaly Lungs: Clear to auscultation, Clear to percussion, Normal respiratory effort, no accessory muscle use Cardiovascular: Heart regular in rate and rhythm, No murmurs, gallops, or rubs, No peripheral edema Abdominal: Soft, Nontender, no guarding, rebound or rigidity, Normoactive bowel sounds, No hepatomegaly, No splenomegaly, No palpable mass Skin: Normal temperature, tone, texture, turgor, no induration, No subcutaneous nodules, No rash, lesions, No ulcers Extremities: No digital cyanosis, No clubbing, Pedal pulses intact and symmetrical, Radial pulses intact and symmetrical, No calf tenderness Psychiatric: Alert and oriented to person, place and time, appropriate affect, intact judgement Neuro: Muscles Strength 5/5 in all 4 extremities, Sensation to light touch grossly present throughout, Cranial nerves II-XII grossly intact, no focal sensory deficits Results CBC & Chem 7: 09/10/17 14:45 09/10/17 14:45 Labs: Abnormal Lab Results - Last 24 Hours (Table) 09/10/17 09/10/17 Range/Units 14:45 14:45 APTT 21.6 L (22.0-30.0) sec Glucose 117 H (74-99) mg/dL Assessment and Plan Plan: #1 Acute chest pain: Rule out coronary artery disease Admit to observation Telemetry Consult cardiology Cycle troponins Aspirin 325 mg daily. #2 Nausea and vomiting/dehydration: IV fluids Likely food poisoning versus gastroenteritis #3 Hyperlipidemia, chronic back pain/right hip pain: Stable Continue home meds
[2017-09-10] MEDS: NITROGLYCERIN OINT 1 INCH/GM PACKET TOPICAL SCH (19:46)
[2017-09-10 21:40] LABS: Creatine Kinase 62 U/L (55-170)
[2017-09-10 21:53] LABS: Creatine Kinase MB <0.2 ng/mL (0.0-2.4); Troponin I <0.012 ng/mL (0.000-0.034)
[2017-09-10] MEDS: ATORVASTATIN 10 MG TAB PO SCH (22:19)
[2017-09-11] MEDS: NITROGLYCERIN OINT 1 INCH/GM PACKET TOPICAL SCH ×5 (01:26→23:16)
[2017-09-11] MEDS: traMADol 50 MG TAB PO PRN ×3 (02:26→20:39)
[2017-09-11 04:00] LABS: Basophils # (A) 0.1 k/uL (0-0.2); Basophils % (A) 1 %; Eosinophils # (A) 0.2 k/uL (0-0.7); Eosinophils % (A) 3 %; HCT 45.2 % (39.0-53.0); Lymphocytes # (A) 1.5 k/uL (1.0-4.8); Lymphocytes % (A) 22 %; MCH 28.4 pg (25.0-35.0); MCHC 33.3 g/dL (31.0-37.0); MCV 85.3 fL (80.0-100.0); Mean Platelet Volume 7.6; Monocytes # (A) 0.5 k/uL (0-1.0); Monocytes % (A) 7 %; Neutrophils # (A) 4.6 k/uL (1.3-7.7); Neutrophils % (A) 65 %; Platelet Count 289 k/uL (150-450); RDW 13.5 % (11.5-15.5)
[2017-09-11 04:23] LABS: ALT 31 U/L (21-72); AST 24 U/L (17-59); Albumin 3.6 g/dL (3.5-5.0); Alkaline Phosphatase 71 U/L (38-126); Anion Gap 12 mmol/L; Blood Urea Nitrogen 11 mg/dL (9-20); Calcium 9.1 mg/dL (8.4-10.2); Carbon Dioxide 25 mmol/L (22-30); Chloride 108 mmol/L (98-107); Cholesterol 154 mg/dL (<200); Glucose 99 mg/dL (74-99); HDL Cholesterol 24 mg/dL (40-60); LDL Cholesterol,Calculated 98 mg/dL (0-99); Magnesium 1.9 mg/dL (1.6-2.3); Phosphorus 3.9 mg/dL (2.5-4.5); Sodium 145 mmol/L (137-145); Total Bilirubin 0.5 mg/dL (0.2-1.3); Total Protein 6.5 g/dL (6.3-8.2); Triglycerides 158 mg/dL (<150)
[2017-09-11 04:48] LABS: Creatine Kinase 58 U/L (55-170)
[2017-09-11 05:01] LABS: Creatine Kinase MB <0.2 ng/mL (0.0-2.4); Troponin I <0.012 ng/mL (0.000-0.034)
--- NOTE | 2017-09-11 08:15 | P.CRDCN ---
History of Present Illness Consult date: 09/11/17 Requesting physician: Yazan Russ Consult reason: chest pain Chief complaint: Chest pain History of present illness: This is a 42-year-old gentleman with history of hyperlipidemia, prior history of hypertension for which she was taken off of his hypertensive occasion , he is a nonsmoker, nondiabetic, no family history of premature coronary artery disease. Patient states that on and Tuesday of last week he had symptoms of persistent vomiting, on Tuesday patient states that he developed a severe headache, he also states that he had significant chest pressure and heaviness. He states that the chest pressure and heaviness with, mostly when he would lie down, when he was standing are active he would not experience any pain. Denies any associated diaphoresis, no shortness of breath. At the time of my examination this morning he is currently chest pain-free. Chest x-ray does not reveal any acute cardiopulmonary process. CAT scan of the brain does not reveal any acute intracranial hemorrhage mass effect or midline shift. EKG shows normal sinus rhythm with no acute changes. Blood pressure on arrival here 138/80 with a heart rate in the 90s, temperature 97.7 is 99% on room air. CBC is normal, d-dimer 0.27, sodium 145, potassium 4.0, chloride 108, CO2 25, BUN 11, creatinine 1.0. Troponins are negative 3. Cholesterol 154, LDL 98, triglycerides 158, HDL 24. Patient's home medications include simvastatin 20 mg at at bedtime, Celexa 40 mg daily, naproxen and Robaxin when necessary. Past Medical History Past Medical History: Hyperlipidemia, Hypertension Additional Past Medical History / Comment(s): chronic back pain and hip pain History of Any Multi-Drug Resistant Organisms: None Reported Past Surgical History: No Surgical Hx Reported Past Psychological History: Depression Smoking Status: Former smoker Past Alcohol Use History: None Reported Past Drug Use History: None Reported - Past Family History Father Family Medical History: Hypertension Medications and Allergies Home Medications Medication Instructions Recorded Confirmed Type Simvastatin [Simvastatin] 20 mg PO HS 03/15/16 09/10/17 History Citalopram Hydrobromide [CeleXA] 40 mg PO DAILY 09/10/17 09/10/17 History Methocarbamol [Robaxin] 750 mg PO BID PRN 09/10/17 09/10/17 History Naproxen 500 mg PO Q12HR PRN 09/10/17 09/10/17 History Allergies Allergy/AdvReac Type Severity Reaction Status Date / Time morphine Allergy Unknown Verified 09/10/17 14:15 Physical Exam Vitals: Vital Signs Temp Pulse Pulse Resp BP BP Pulse Ox 09/11/17 04:00 69 18 132/81 97 09/10/17 23:32 98.3 F 64 18 124/75 95 09/10/17 19:40 18 09/10/17 19:31 97.9 F 75 18 129/70 95 09/10/17 17:52 98 09/10/17 17:20 98.3 F 72 16 144/77 94 L 09/10/17 16:46 97.6 F 65 16 135/80 100 09/10/17 15:19 72 16 131/81 95 09/10/17 14:55 64 16 144/73 96 09/10/17 13:23 97.7 F 90 18 138/84 99 Intake and Output 09/10/17 09/11/17 09/11/17 22:59 06:59 14:59 Intake Total 400 Balance 400 Intake: IV 400 Sodium Chloride 0.9% 1, 400 000 ml @ 100 mls/hr IV . Q10H STA Rx#:[id number] Other: Voiding Method Toilet Weight 85.275 kg PHYSICAL EXAMINATION: HEENT: Head is atraumatic, normocephalic. Pupils equal, round. Neck is supple. There is no elevated jugular venous pressure. HEART EXAMINATION: Heart S1, S2 normal. No murmur or gallop heard. CHEST EXAMINATION: Lungs are clear to auscultation and precussion. No chest wall tenderness is noted on palpation or with deep breathing. ABDOMEN: Soft, nontender. Bowel sounds are heard. No organomegaly noted. EXTREMITIES: 2+ peripheral pulses with no evidence of peripheral edema and no calf tenderness noted. NEUROLOGIC patient is awake, alert and oriented -3. . Results 09/11/17 03:06 09/11/17 03:06 Cardiac Enzymes 09/10/17 09/10/17 09/10/17 Range/Units 14:45 14:45 20:55 AST 31 (17-59) U/L CK-MB (CK-2) <0.2 <0.2 (0.0-2.4) ng/mL Troponin I <0.012 <0.012 (0.000-0.034) ng/mL 09/11/17 09/11/17 Range/Units 03:06 03:06 AST 24 (17-59) U/L CK-MB (CK-2) <0.2 (0.0-2.4) ng/mL Troponin I <0.012 (0.000-0.034) ng/mL Coagulation 09/10/17 Range/Units 14:45 PT 10.5 (9.0-12.0) sec APTT 21.6 L (22.0-30.0) sec Lipids 09/11/17 Range/Units 03:06 Triglycerides 158 H (<150) mg/dL Cholesterol 154 (<200) mg/dL HDL Cholesterol 24 L (40-60) mg/dL CBC 09/10/17 09/11/17 Range/Units 14:45 03:06 WBC 7.4 7.0 (3.8-10.6) k/uL RBC 5.47 5.30 (4.30-5.90) m/uL Hgb 15.8 15.0 (13.0-17.5) gm/dL Hct 46.9 45.2 (39.0-53.0) % Plt Count 284 289 (150-450) k/uL Comprehensive Metabolic Panel 09/10/17 09/11/17 Range/Units 14:45 03:06 Sodium 145 145 (137-145) mmol/L Potassium 4.1 4.0 (3.5-5.1) mmol/L Chloride 107 108 H (98-107) mmol/L Carbon Dioxide 26 25 (22-30) mmol/L BUN 14 11 (9-20) mg/dL Creatinine 1.10 1.00 (0.66-1.25) mg/dL Glucose 117 H 99 (74-99) mg/dL Calcium 9.6 9.1 (8.4-10.2) mg/dL AST 31 24 (17-59) U/L ALT 28 31 (21-72) U/L Alkaline Phosphatase 79 71 (38-126) U/L Total Protein 7.1 6.5 (6.3-8.2) g/dL Albumin 4.1 3.6 (3.5-5.0) g/dL Current Medications Generic Name Dose Route Start Last Admin Trade Name Freq PRN Reason Stop Dose Admin Acetaminophen 650 mg 09/10/17 17:02 09/10/17 22:04 Tylenol Tab PO 650 mg Q6HR PRN Administration Mild Pain or Fever > 100.5 Aspirin 325 mg 09/11/17 09:00 Aspirin PO DAILY [facility] Atorvastatin Calcium 10 mg 09/10/17 21:00 09/10/17 22:19 Lipitor PO 10 mg HS MICHAEL Administration Citalopram Hydrobromide 40 mg 09/11/17 09:00 Celexa PO DAILY [facility] Methocarbamol 750 mg 09/10/17 17:04 Robaxin PO BID PRN Muscle Pain Naloxone HCl 0.2 mg 09/10/17 17:02 Narcan IV Q2M PRN Opioid Reversal Nitroglycerin 0.5 inch 09/10/17 18:00 09/11/17 06:17 Nitro-Bid Oint TOPICAL Not Given Q6HR [facility] Nitroglycerin 0.4 mg 09/10/17 16:23 Nitrostat SUBLINGUAL Q5M PRN Chest Pain Ondansetron HCl 4 mg 09/10/17 17:02 Zofran IVP Q8HR PRN Nausea And Vomiting Sodium Chloride 10 ml 09/10/17 21:00 09/10/17 19:47 Saline Flush IV Not Given BID [facility] Tramadol HCl 50 mg 09/10/17 17:02 09/11/17 02:26 Ultram PO 50 mg Q6H PRN Administration Moderate Pain Intake and Output 09/10/17 09/11/17 09/11/17 22:59 06:59 14:59 Intake Total 400 Balance 400 Intake: IV 400 Sodium Chloride 0.9% 1, 400 000 ml @ 100 mls/hr IV . Q10H STA Rx#:[id number] Other: Voiding Method Toilet Weight 85.275 kg 09/11/17 03:06 09/11/17 03:06 EKG Interpretations (text) EKG shows a normal sinus rhythm with no acute changes. Assessment and Plan Plan: Assessment and plan #1 chest pain, atypical for acute coronary syndrome. Troponins negative 3. EKG shows normal sinus rhythm with no acute changes. D-dimer negative #2 severe headache, CT of the brain negative #3 nausea and vomiting, resolved #4 chronic back pain #5 hyperlipidemia Plan Patient's pain is very atypical in nature, we will obtain an echocardiogram with Doppler study and recommended the patient undergo stress testing prior to discharge. He is currently receiving hydration for his persistent nausea and vomiting. Further recommendations to follow. DNP note has been reviewed, I agree with a documented findings and plan of care. Patient was seen and examined.
[2017-09-11] MEDS: CITALOPRAM HYDROBROMIDE 20 MG TAB PO SCH (09:38)
[2017-09-11] MEDS: ASPIRIN 325 MG TAB PO SCH (09:38)
[2017-09-11] MEDS ORDERED: MECLIZINE 25 MG TAB PO PRN (12:54)
--- NOTE | 2017-09-11 12:54 | P.PN ---
Progress Note - Text Progress Note Date: 09/11/17 called to evaluate patient secondary to dizziness. Patient says that this started at home associated woth headache. No focal symptoms. Symptoms get worse with turning to the side. No visula changes, no nystgmus. Symptoms consistant with vertigo. Will start antivert. CT of head done yesterday negative.
--- NOTE | 2017-09-11 15:10 | P.PN ---
Subjective Progress Note Date: 09/11/17 Principal diagnosis: H/A, dizziness and chest pain. Feeling better, was having dizziness and H/A earlier but now feeling ok. Objective - Vital Signs Vital signs: Vital Signs Temp 98.3 F 09/10/17 23:32 Pulse 74 09/11/17 08:00 Resp 16 09/11/17 08:00 BP 145/79 09/11/17 08:00 Pulse Ox 95 09/11/17 08:00 Intake & Output 09/10/17 09/11/17 09/11/17 18:59 06:59 18:59 Intake Total 400 Balance 400 Weight 85.275 kg Intake: IV 400 Sodium Chloride 0.9% 1, 400 000 ml @ 100 mls/hr IV . Q10H STA Rx#:[id number] Other: Voiding Method Toilet Toilet # Voids 1 - Exam Constitutional: No acute distress, conversant, pleasant Eyes:Anicteric sclerae, moist conjunctiva, no lid-lag, PERRLA, ENMT: Oropharynx clear, no erythema, exudates Neck: Supple, FROM, no masses, or JVD, No carotid bruits, No thyromegaly Lungs: Clear to auscultation, Clear to percussion, Normal respiratory effort, no accessory muscle use Cardiovascular: Heart regular in rate and rhythm, No murmurs, gallops, or rubs, No peripheral edema Abdominal: Soft, Nontender, no guarding, rebound or rigidity, Normoactive bowel sounds, No hepatomegaly, No splenomegaly, No palpable mass Skin: Normal temperature, tone, texture, turgor, no induration, No subcutaneous nodules, No rash, lesions, No ulcers Extremities: No digital cyanosis, No clubbing, Pedal pulses intact and symmetrical, Radial pulses intact and symmetrical, No calf tenderness Psychiatric: Alert and oriented to person, place and time, appropriate affect, intact judgement Neuro: Muscles Strength 5/5 in all 4 extremities, Sensation to light touch grossly present throughout, Cranial nerves II-XII grossly intact, no focal sensory deficits - Labs CBC & Chem 7: 09/11/17 03:06 09/11/17 03:06 Labs: Abnormal Lab Results - Last 24 Hours (Table) 09/10/17 09/10/17 09/11/17 Range/Units 14:45 14:45 03:06 APTT 21.6 L (22.0-30.0) sec Chloride 108 H (98-107) mmol/L Glucose 117 H (74-99) mg/dL Triglycerides 158 H (<150) mg/dL HDL Cholesterol 24 L (40-60) mg/dL Assessment and Plan Plan: #1 Acute chest pain: Seen by cardiology--needs stress testing Troponins negative. Aspirin 325 mg daily. #2 Nausea and vomiting/dehydration: Continue IV fluids Likely food poisoning versus gastroenteritis #3 Dizziness: Likely sec to dehydration ' Meclizine prn. #3 Hyperlipidemia, chronic back pain/right hip pain: Stable Continue home meds
[2017-09-11] MEDS: ATORVASTATIN 10 MG TAB PO SCH (20:39)
[2017-09-11] MEDS ORDERED: ALPRAZolam 0.5 MG TAB PO PRN (21:22)
[2017-09-12 08:36] VITALS: RESP 16
--- NOTE | 2017-09-12 10:28 | ECHOS ---
STRESS ECHOCARDIOGRAM INDICATIONS: Chest pain. BASELINE HEART RATE: 102 BASELINE BLOOD PRESSURE: 111/49 MAXIMUM HEART RATE: 158 MAXIMUM BLOOD PRESSURE: 157/69 85% MPHR: 151 100% MPHR: 178 METS: 9.3 MAXIMUM STAGE REACHED: 3 TOTAL EXERCISE TIME: 7:45 CLINICAL INFORMATION: STRESS DATA: Pretesting physical examination showed a heart rate of 102, pressure is 111/49 mmHg. Baseline EKG showed sinus rhythm. The patient exercised according to Mateusz protocol for a total of 7 minutes and 45 seconds and achieved 9.3 METS. Max heart rate was 158 which is 88% of maximum predicted heart rate. Maximal blood pressure was 157/69 mmHg. Clinically, the patient did not have any symptoms of chest pain or discomfort. The EKG did not show any significant ST or T-wave abnormalities consistent of ischemia or meeting the criteria for ischemia. ECHOCARDIOGRAM IMAGES: On echocardiogram images from parasternal long axis view, parasternal short axis view, apical 4 chambers and apical 2 chamber view were obtained at the baseline images. at the peak of the heart rate, as well as on recovery. The echocardiogram images did not show any significant ST or T-wave abnormalities consistent with ischemia. CONCLUSION: 1. Good exercise capacity. 2. Normal EKG in response to exercise. 3. Normal echocardiogram in response to exercise. MMODL / IJN: [id number] /
--- NOTE | 2017-09-12 10:34 | ECHOF ---
Referral Reason:chest pain MEASUREMENTS -------- HEIGHT: 167.6 cm WEIGHT: 85.3 kg BP: 111/49 RVIDd: 2.5 cm (< 3.3) IVSd: 1.2 cm (0.6 - 1.1) LVIDd: 4.6 cm (3.9 - 5.3) LVPWd: 1.2 cm (0.6 - 1.1) IVSs: 1.6 cm LVIDs: 3.0 cm LVPWs: 1.6 cm LA Diam: 3.0 cm (2.7 - 3.8) LAESV Index (A-L): 18.47 ml/m Ao Diam: 2.8 cm (2.0 - 3.7) AV Cusp: 2.0 cm (1.5 - 2.6) MV EXCURSION: 17.007 mm (> 18.000) MV EF SLOPE: 86 mm/s (70 - 150) EPSS: 0.6 cm MV E Carlos: 0.73 m/s MV DecT: 328 ms MV A Carlos: 0.65 m/s MV E/A Ratio: 1.12 FINDINGS -------- Sinus rhythm. This was a technically good study. The left ventricular size is normal. There is borderline concentric left ventricular hypertrophy. Overall left ventricular systolic function is normal with, an EF between 60 - 65 %. Apical hypetro phy The right ventricle is normal in size. Normal LA size by volume 22+/-6 ml/m2. The right atrium is normal in size. The aortic valve is trileaflet and appears structurally normal. There is trace to mild mitral regurgitation. Trace tricuspid regurgitation present. Trace/mild (physiologic) pulmonic regurgitation. The aortic root size is normal. Normal inferior vena cava with normal inspiratory collapse consistent with estimated right atrial pre ssure of 5 mmHg. There is no pericardial effusion. CONCLUSIONS -------- 1. Sinus rhythm. 2. This was a technically good study. 3. The left ventricular size is normal. 4. There is borderline concentric left ventricular hypertrophy. 5. Overall left ventricular systolic function is normal with, an EF between 60 - 65 %. 6. Apical hypetrophy 7. The right ventricle is normal in size. 8. Normal LA size by volume 22+/-6 ml/m2. 9. The right atrium is normal in size. 10. The aortic valve is trileaflet and appears structurally normal. 11. There is trace to mild mitral regurgitation. 12. Trace tricuspid regurgitation present. 13. Trace/mild (physiologic) pulmonic regurgitation. 14. The aortic root size is normal. 15. Normal inferior vena cava with normal inspiratory collapse consistent with estimated right atrial pressure of 5 mmHg. 16. There is no pericardial effusion. CIVIL PREPAREDNESS COORDINATOR: Elizabeth Pyle RDCS
[2017-09-12] MEDS: ASPIRIN 325 MG TAB PO SCH (10:51)
[2017-09-12] MEDS: CITALOPRAM HYDROBROMIDE 20 MG TAB PO SCH (10:51)
[2017-09-12 11:38] VITALS: BP 113/82; PULSE 74; TEMP 97.6
--- NOTE | 2017-09-12 12:23 | P.DS ---
Providers Date of admission: 09/10/17 16:23 Expected date of discharge: 09/12/17 Attending physician: Yazan Russ MD Consults: 09/10/17 16:23 Consult Physician Urgent Consulting Provider: Jorje Yost Consult Reason/Comments: cp Do you want consulting provider notified?: Yes Primary care physician: [facility] Course: 42-year-old male presenting to the emergency Department with complaints of chest pain and headache. Several days before admission he started having severe nausea and vomiting. On he started noticing on and off chest pain, day before admission he was unable to lay down without having chest pain. Chest discomfort was described as pressure in the chest. The pain was not exertional. Patient was not aware of any alleviating or exacerbating factors. It was located in the middle of the chest without radiation. He denied having any acid reflux burning. Had some associated shortness of breath. Headache was intermittent, was described as pressure and diffuse. No focal weakness or numbness. No confusion, loss of consciousness. Patient was admitted to the hospital, when he was seen in the emergency department all of his vital signs were within normal limits. His laboratory findings failed to reveal any abnormality. Because of the headache he had a head CT scan that did not show any acute intracranial abnormality. Troponins were cycled and they were within normal limits. His EKG did not reveal any acute ST or T-wave changes. Subsequently was seen by cardiology who performed an echo stress test on him and that came back within normal limits. He was treated with Zofran and tramadol for his symptoms. Throughout the hospitalization his symptoms gradually improved, and eventually symptoms resolved on the day of discharge. It was thought that patient's symptoms were most likely due to food poisoning versus gastroenteritis. Patient was discharged home in stable condition. He was instructed to follow-up with his primary care physician as needed after discharge. Time for discharge 35 minutes. Plan - Discharge Summary Discharge Rx Participant: No New Discharge Prescriptions: Continue Simvastatin 20 mg PO HS Naproxen 500 mg PO Q12HR PRN PRN Reason: Pain Methocarbamol [Robaxin] 750 mg PO BID PRN PRN Reason: Pain Citalopram Hydrobromide [CeleXA] 40 mg PO DAILY Discharge Medication List Simvastatin 20 mg PO HS 03/15/16 [History] Citalopram Hydrobromide [CeleXA] 40 mg PO DAILY 09/10/17 [History] Methocarbamol [Robaxin] 750 mg PO BID PRN 09/10/17 [History] Naproxen 500 mg PO Q12HR PRN 09/10/17 [History] Follow up Appointment(s)/Referral(s): Batool Alfred MD [Primary Care Provider] - 1-2 days
--- NOTE | 2017-09-12 12:40 | P.PN ---
Subjective Progress Note Date: 09/12/17 Mr. Valero is a pleasant 42-year-old male past medical history significant for hypertension for which he does not take medications for currently. He is being seen today in follow up for initial consultation for chest pain, vomiting and headache. He has not had any symptoms since admission. Telemetry tracings have been unremarkable. He underwent stress echocardiogram today that was negative for stress induced cardiac ischemia. Echocardiogram reveals preserved left ventricular function with ejection fraction 60-65%, apical hypertrophy, trace to mild mitral regurgitation and trace to mild pulmonic regurgitation. Objective - Vital Signs Vital signs: Vital Signs Temp 97.6 F 09/12/17 11:37 Pulse 74 09/12/17 11:37 Resp 16 09/12/17 11:37 BP 113/82 09/12/17 11:37 Pulse Ox 99 09/12/17 11:37 Intake & Output 09/11/17 09/12/17 09/12/17 18:59 06:59 18:59 Intake Total 200 300 Balance 200 300 Intake: Oral 200 300 Other: Voiding Method Toilet Toilet Toilet # Voids 1 2 - Exam Blood pressure 113/82 heart rate 74 afebrile GENERAL: Well-appearing, well-nourished and in no acute distress. NECK: Supple without JVD or thyromegaly. LUNGS: Breath sounds clear to auscultation bilaterally. Respiration equal and unlabored. No wheezes, rales or rhonchi. HEART: Regular rate and rhythm without murmurs, rubs or gallops. S1 and S2 heard. EXTREMITIES: Normal range of motion, no edema. No clubbing or cyanosis. Peripheral pulses intact and strong. - Labs CBC & Chem 7: 09/11/17 03:06 09/11/17 03:06 Assessment and Plan Assessment: ASSESSMENT 1. Syndrome. Troponins negative 3. EKG shows normal sinus rhythm with no acute changes. 2. Dyslipidemia 3. Chronic back pain PLAN Mr. Valero is stable from a cardiac perspective with a negative stress echocardiogram. Follow-up with primary care physician upon discharge. Nurse Practitioner note has been reviewed, I agree with a documented findings and plan of care. Patient was seen and examined.
[2017-09-12] MEDS: NITROGLYCERIN OINT 1 INCH/GM PACKET TOPICAL SCH (13:44)
== END 2017-09-12 13:39 | disposition home or self-care (01) ==
LOC: EC 13:17 → 3SUR 16:23 → 6SEL 20:31 → 3OBS 09-11 19:57
PROVIDERS: ADMIT Internal Medicine; ATTEND Internal Medicine
DX: R07.89 Other chest pain (principal); R42 Dizziness and giddiness; R51 Headache; E86.0 Dehydration; R11.2 Nausea with vomiting, unspecified; R06.02 Shortness of breath; E78.5 Hyperlipidemia, unspecified; G89.29 Other chronic pain; M54.9 Dorsalgia, unspecified; I10 Essential (primary) hypertension; F32.9 Major depressive disorder, single episode, unspecified; M25.551 Pain in right hip; Z88.5 Allergy status to narcotic agent; Z79.899 Other long term (current) drug therapy; Z82.49 Family history of ischemic heart disease and other diseases of the circulatory system; Z87.891 Personal history of nicotine dependence
CPT/HCPCS: 99285; 96374; 96361 ×6; 36415; 93005; 93017; 93306; 93350; 85379; 80061; 80053 ×2; 82550 ×2; 82553 ×2; 83735 ×2; 84100; 84484 ×2; 85025 ×2; 85610; 85730; 71046; 70450; G0378 ×5; J1170

== ENCOUNTER 2017-09-30 00:48 | Observation (INO) | payer OTHER ==
[2017-09-30] MEDS ORDERED: SODIUM CHLORIDE 0.9% 500 ML IV STA (00:57)
[2017-09-30] MEDS ORDERED: SODIUM CHLORIDE 0.9% 1,000 ML IV STA (00:57)
[2017-09-30] MEDS ORDERED: ASPIRIN 81 MG PO STA (00:57)
[2017-09-30] MEDS ORDERED: METOCLOPRAMIDE 5 MG/ML 2 ML VIAL IVP STA (00:57)
[2017-09-30] MEDS ORDERED: DILTIAZEM 5 MG/ML 5 ML VIAL IVP STA (00:58)
[2017-09-30] MEDS ORDERED: DILTIAZEM 125 MG in SODIUM CHLORIDE 0.9% 100 ML IV ONE (00:58)
--- NOTE | 2017-09-30 01:01 | ED ---
General Adult HPI - General Chief complaint: Chest Pain Stated complaint: chest pain Time Seen by Provider: 09/30/17 00:50 Source: patient, EMS, RN notes reviewed Mode of arrival: EMS Limitations: no limitations - History of Present Illness Initial comments: Patient is a pleasant 42-year-old male presenting to the emergency department with chest discomfort. Patient has had diarrhea several times a day for the past few days. Prior to arrival patient had sudden onset of chest discomfort that feels like pressure. Patient has associated nausea and vomiting that also just started. No dyspnea or diaphoresis. Patient states he did have an episode of chest discomfort and was seen in the emergency department just a few weeks ago. No history of cardiac arrhythmia. - Related Data Home Medications Medication Instructions Recorded Confirmed Simvastatin 20 mg PO HS 03/15/16 09/10/17 Citalopram Hydrobromide [CeleXA] 40 mg PO DAILY 09/10/17 09/10/17 Methocarbamol [Robaxin] 750 mg PO BID PRN 09/10/17 09/10/17 Naproxen 500 mg PO Q12HR PRN 09/10/17 09/10/17 Allergies Allergy/AdvReac Type Severity Reaction Status Date / Time morphine Allergy Unknown Verified 09/10/17 14:15 Review of Systems ROS Statement: Those systems with pertinent positive or pertinent negative responses have been documented in the HPI. ROS Other: All systems not noted in ROS Statement are negative. Constitutional: Denies: fever Eyes: Denies: eye pain ENT: Denies: ear pain Respiratory: Denies: cough Cardiovascular: Reports: chest pain, palpitations (Palpitations resolved at this time) Endocrine: Denies: fatigue Gastrointestinal: Reports: nausea, diarrhea. Denies: abdominal pain Genitourinary: Denies: dysuria Musculoskeletal: Denies: back pain Skin: Denies: rash Neurological: Denies: headache Past Medical History Past Medical History: Hyperlipidemia, Hypertension Additional Past Medical History / Comment(s): chronic back pain and hip pain History of Any Multi-Drug Resistant Organisms: None Reported Past Surgical History: No Surgical Hx Reported Past Psychological History: Depression Smoking Status: Former smoker Past Alcohol Use History: Occasional Past Drug Use History: None Reported - Past Family History Father Family Medical History: Hypertension General Exam Limitations: no limitations General appearance: alert Head exam: Present: atraumatic, normocephalic Eye exam: Present: normal appearance, PERRL ENT exam: Present: normal oropharynx Neck exam: Present: normal inspection Respiratory exam: Present: normal lung sounds bilaterally Cardiovascular Exam: Present: tachycardia, irregular rhythm Expanded Peripheral pulses: 2+: Radial (R), Radial (L), Posterior Tibialis (R), Posterior Tibialis (L) GI/Abdominal exam: Present: soft. Absent: tenderness Extremities exam: Present: normal inspection. Absent: pedal edema, calf tenderness Neurological exam: Present: alert Psychiatric exam: Present: normal affect, normal mood Skin exam: Present: normal color Course Vital Signs 09/30/17 09/30/17 09/30/17 00:54 00:58 01:45 Temperature 97.5 F L Pulse Rate 83 146 H 121 H Respiratory 18 20 18 Rate Blood Pressure 136/73 130/67 121/78 O2 Sat by Pulse 94 L 95 96 Oximetry 09/30/17 02:00 Temperature Pulse Rate 118 H Respiratory 18 Rate Blood Pressure 130/76 O2 Sat by Pulse 97 Oximetry EKG Findings - EKG Comments: EKG Findings:: A. fib with RVR, rate 129. QRS 90. QT 336. QTc 492. Left axis. LVH criteria. Nonspecific ST-T. Medical Decision Making - Medical Decision Making Patient reevaluated and resting comfortably in bed. Patient symptom-free other than feeling tired. No chest pain or palpitations. Heart rate is varying between 107 and 1:30. Dr. Basurto has been paged for hospital call. - Lab Data Result diagrams: 09/30/17 01:16 09/30/17 01:16 Lab Results 09/30/17 09/30/17 09/30/17 Range/Units 01:16 01:16 01:16 WBC 6.8 (3.8-10.6) k/uL RBC 5.42 (4.30-5.90) m/uL Hgb 15.3 (13.0-17.5) gm/dL Hct 47.8 (39.0-53.0) % MCV 88.2 (80.0-100.0) fL MCH 28.2 (25.0-35.0) pg MCHC 31.9 (31.0-37.0) g/dL RDW 13.0 (11.5-15.5) % Plt Count 276 (150-450) k/uL Neutrophils % 51 % Lymphocytes % 32 % Monocytes % 10 % Eosinophils % 4 % Basophils % 1 % Neutrophils # 3.4 (1.3-7.7) k/uL Lymphocytes # 2.2 (1.0-4.8) k/uL Monocytes # 0.7 (0-1.0) k/uL Eosinophils # 0.2 (0-0.7) k/uL Basophils # 0.1 (0-0.2) k/uL PT (9.0-12.0) sec INR (<1.2) APTT (22.0-30.0) sec Sodium 142 (137-145) mmol/L Potassium 3.8 (3.5-5.1) mmol/L Chloride 107 (98-107) mmol/L Carbon Dioxide 23 (22-30) mmol/L Anion Gap 12 mmol/L BUN 8 L (9-20) mg/dL Creatinine 1.00 (0.66-1.25) mg/dL Est GFR (MDRD) Af Amer >60 (>60 ml/min/1.73 sqM) Est GFR (MDRD) Non-Af >60 (>60 ml/min/1.73 sqM) Glucose 151 H (74-99) mg/dL Calcium 9.3 (8.4-10.2) mg/dL Magnesium 1.9 (1.6-2.3) mg/dL Total Bilirubin 0.4 (0.2-1.3) mg/dL AST 27 (17-59) U/L ALT 36 (21-72) U/L Alkaline Phosphatase 101 (38-126) U/L Total Creatine Kinase 74 (55-170) U/L CK-MB (CK-2) 0.3 (0.0-2.4) ng/mL CK-MB (CK-2) Rel Index 0.4 Troponin I <0.012 (0.000-0.034) ng/mL Total Protein 7.2 (6.3-8.2) g/dL Albumin 4.1 (3.5-5.0) g/dL TSH 1.260 (0.465-4.680) mIU/L Free T4 0.92 (0.78-2.19) ng/dL Free T3 pg/mL 4.1 (2.8-5.3) pg/ml Urine Color Urine Appearance (Clear) Urine pH (5.0-8.0) Ur Specific [place] (1.001-1.035) Urine Protein (Negative) Urine Glucose (UA) (Negative) Urine Ketones (Negative) Urine Blood (Negative) Urine Nitrite (Negative) Urine Bilirubin (Negative) Urine Urobilinogen (<2.0) mg/dL Ur Leukocyte Esterase (Negative) Urine Opiates Screen (NotDetected) Ur Oxycodone Screen (NotDetected) Urine Methadone Screen (NotDetected) Ur Propoxyphene Screen (NotDetected) Ur Barbiturates Screen (NotDetected) U Tricyclic Antidepress (NotDetected) Ur Phencyclidine Scrn (NotDetected) Ur Amphetamines Screen (NotDetected) U Methamphetamines Scrn (NotDetected) U Benzodiazepines Scrn (NotDetected) Urine Cocaine Screen (NotDetected) U Marijuana (THC) Screen (NotDetected) 09/30/17 09/30/17 Range/Units 01:16 01:50 WBC (3.8-10.6) k/uL RBC (4.30-5.90) m/uL Hgb (13.0-17.5) gm/dL Hct (39.0-53.0) % MCV (80.0-100.0) fL MCH (25.0-35.0) pg MCHC (31.0-37.0) g/dL RDW (11.5-15.5) % Plt Count (150-450) k/uL Neutrophils % % Lymphocytes % % Monocytes % % Eosinophils % % Basophils % % Neutrophils # (1.3-7.7) k/uL Lymphocytes # (1.0-4.8) k/uL Monocytes # (0-1.0) k/uL Eosinophils # (0-0.7) k/uL Basophils # (0-0.2) k/uL PT 10.2 (9.0-12.0) sec INR 1.0 (<1.2) APTT 19.2 L (22.0-30.0) sec Sodium (137-145) mmol/L Potassium (3.5-5.1) mmol/L Chloride (98-107) mmol/L Carbon Dioxide (22-30) mmol/L Anion Gap mmol/L BUN (9-20) mg/dL Creatinine (0.66-1.25) mg/dL Est GFR (MDRD) Af Amer (>60 ml/min/1.73 sqM) Est GFR (MDRD) Non-Af (>60 ml/min/1.73 sqM) Glucose (74-99) mg/dL Calcium (8.4-10.2) mg/dL Magnesium (1.6-2.3) mg/dL Total Bilirubin (0.2-1.3) mg/dL AST (17-59) U/L ALT (21-72) U/L Alkaline Phosphatase (38-126) U/L Total Creatine Kinase (55-170) U/L CK-MB (CK-2) (0.0-2.4) ng/mL CK-MB (CK-2) Rel Index Troponin I (0.000-0.034) ng/mL Total Protein (6.3-8.2) g/dL Albumin (3.5-5.0) g/dL TSH (0.465-4.680) mIU/L Free T4 (0.78-2.19) ng/dL Free T3 pg/mL (2.8-5.3) pg/ml Urine Color Yellow Urine Appearance Clear (Clear) Urine pH 5.5 (5.0-8.0) Ur Specific [place] 1.014 (1.001-1.035) Urine Protein Negative (Negative) Urine Glucose (UA) Negative (Negative) Urine Ketones Negative (Negative) Urine Blood Negative (Negative) Urine Nitrite Negative (Negative) Urine Bilirubin Negative (Negative) Urine Urobilinogen <2.0 (<2.0) mg/dL Ur Leukocyte Esterase Negative (Negative) Urine Opiates Screen Not Detected (NotDetected) Ur Oxycodone Screen Not Detected (NotDetected) Urine Methadone Screen Not Detected (NotDetected) Ur Propoxyphene Screen Not Detected (NotDetected) Ur Barbiturates Screen Detected H (NotDetected) U Tricyclic Antidepress Not Detected (NotDetected) Ur Phencyclidine Scrn Not Detected (NotDetected) Ur Amphetamines Screen Not Detected (NotDetected) U Methamphetamines Scrn Not Detected (NotDetected) U Benzodiazepines Scrn Not Detected (NotDetected) Urine Cocaine Screen Not Detected (NotDetected) U Marijuana (THC) Screen Not Detected (NotDetected) - Radiology Data Radiology results: image reviewed (Chest x-ray shows no acute process.) Critical Care Time Critical Care Time: Yes Total Critical Care Time: 34 Disposition Clinical Impression: Atrial fibrillation with RVR Disposition: ADMITTED IP TO THIS HOSP Referrals: Batool Alfred MD [Primary Care Provider] - 1-2 days Decision Time: 02:46
--- NOTE | 2017-09-30 01:35 | XR ---
EXAMINATION TYPE: XR chest 1V portable DATE OF EXAM: 09/30/2017 COMPARISON: 09/10/2017 HISTORY: Dysrhythmia TECHNIQUE: Single frontal view of the chest is obtained. FINDINGS: There is no heart failure nor confluent pneumonic infiltrate. Heart size is normal. There is no sign of pleural effusion. There are chest leads. IMPRESSION: No active cardiopulmonary disease. No change.
[2017-09-30 01:48] LABS: Basophils # (A) 0.1 k/uL (0-0.2); Basophils % (A) 1 %; Eosinophils # (A) 0.2 k/uL (0-0.7); Eosinophils % (A) 4 %; HCT 47.8 % (39.0-53.0); HGB 15.3 gm/dL (13.0-17.5); Lymphocytes # (A) 2.2 k/uL (1.0-4.8); Lymphocytes % (A) 32 %; MCH 28.2 pg (25.0-35.0); MCHC 31.9 g/dL (31.0-37.0); MCV 88.2 fL (80.0-100.0); Mean Platelet Volume 7.8; Monocytes # (A) 0.7 k/uL (0-1.0); Monocytes % (A) 10 %; Neutrophils # (A) 3.4 k/uL (1.3-7.7); Neutrophils % (A) 51 %; Platelet Count 276 k/uL (150-450); RBC 5.42 m/uL (4.30-5.90); WBC 6.8 k/uL (3.8-10.6)
[2017-09-30 01:55] LABS: Prothrombin Time 10.2 sec (9.0-12.0)
[2017-09-30 01:56] LABS: ALT 36 U/L (21-72); AST 27 U/L (17-59); Albumin 4.1 g/dL (3.5-5.0); Alkaline Phosphatase 101 U/L (38-126); Anion Gap 12 mmol/L; Blood Urea Nitrogen 8 mg/dL (9-20); Calcium 9.3 mg/dL (8.4-10.2); Carbon Dioxide 23 mmol/L (22-30); Chloride 107 mmol/L (98-107); Glucose 151 mg/dL (74-99); Magnesium 1.9 mg/dL (1.6-2.3); Potassium 3.8 mmol/L (3.5-5.1); Sodium 142 mmol/L (137-145); Total Bilirubin 0.4 mg/dL (0.2-1.3); Total Protein 7.2 g/dL (6.3-8.2)
[2017-09-30 02:00] LABS: Appearance,Urine Clear (Clear); Bilirubin,Urine Negative (Negative); Blood,Urine Negative (Negative); Color,Urine Yellow; Glucose,Urine (UA) Negative (Negative); Ketones,Urine Negative (Negative); Leukocyte Esterase,Urine Negative (Negative); Nitrite,Urine Negative (Negative); PH, Urine 5.5 (5.0-8.0); Protein,Urine Negative (Negative); Specific Gravity,Urine 1.014 (1.001-1.035); Urobilinogen,Urine <2.0 mg/dL (<2.0)
[2017-09-30 02:13] LABS: Creatine Kinase 74 U/L (55-170); Partial Thromboplastin Time 19.2 sec (22.0-30.0); T4, Free (Free Thyroxine) 0.92 ng/dL (0.78-2.19)
[2017-09-30 02:15] LABS: Amphetamine Screen,Urine Not Detected (NotDetected); Barbiturate Screen,Urine Detected (NotDetected); Benzodiazepines Screen,Urine Not Detected (NotDetected); Cocaine Screen,Urine Not Detected (NotDetected); Methadone Screen, Urine Not Detected (NotDetected); Opiate Screen,Urine Not Detected (NotDetected); Oxycodone Screen, Urine Not Detected (NotDetected); Phencyclidine Screen,Urine Not Detected (NotDetected); Tricyclic Antidepressant,Urine Not Detected (NotDetected); Urn Cannabinoid Scrn Not Detected (NotDetected)
[2017-09-30 02:25] LABS: Creatine Kinase MB 0.3 ng/mL (0.0-2.4); Troponin I <0.012 ng/mL (0.000-0.034)
[2017-09-30] MEDS ORDERED: HEPARIN SODIUM,PORCINE 5,000 UNIT/ML 1 ML VIAL IV PRN (02:46)
[2017-09-30] MEDS ORDERED: HEPARIN SODIUM,PORCINE 5,000 UNIT/ML 1 ML VIAL IV ONE (02:46)
[2017-09-30] MEDS ORDERED: NITROGLYCERIN SL TABS 0.4 MG TAB SUBLINGUAL PRN (02:46)
[2017-09-30] MEDS ORDERED: HEPARIN SOD,PORK IN 0.45% NACL 25,000 UNIT in 0.45% NACL 1 500ML.BAG IV SCH (03:00)
[2017-09-30 04:48] VITALS: BMI 28.8
[2017-09-30 05:05] VITALS: RESP 18
[2017-09-30 07:07] LABS: Platelet Count 300 k/uL (150-450)
[2017-09-30 07:29] LABS: Creatine Kinase 66 U/L (55-170)
[2017-09-30 07:41] LABS: Creatine Kinase MB 0.3 ng/mL (0.0-2.4); Troponin I <0.012 ng/mL (0.000-0.034)
[2017-09-30 08:41] VITALS: TEMP 98.8
[2017-09-30] MEDS ORDERED: DILTIAZEM CD 120 MG CAP.ER.24H PO SCH (10:15)
--- NOTE | 2017-09-30 10:49 | CONS ---
CONSULTATION Mr. Valero is a 42-year-old male with no history of obstructive coronary artery disease who presented with symptoms of palpitation. In the emergency room, he was noted to be in atrial fibrillation. At the time my evaluation, he is back in sinus mechanism. He had a prior admission to the hospital recently with symptoms of chest discomfort and no evidence of acute coronary syndrome. Subsequently underwent a stress echocardiogram that revealed no evidence of inducible ischemia. His left ventricular systolic function by echocardiography was preserved. He is reasonably active physically and has no exertional chest discomfort. He has no significant dyspnea. No dizziness. No palpitation. No syncope. He denies any PND, orthopnea, or peripheral edema. He is a smoker. Denies any alcohol intake. He drinks large amount of caffeinated beverages. He has no history of drug use. His medications at the time of admission included simvastatin 20 mg daily, Naprosyn on a p.r.n. basis, Robaxin on a p.r.n. basis and Celexa. REVIEW OF SYSTEMS: RESPIRATORY SYSTEM: He has no recent history of wheezing. No cough. No history of obstructive lung disease. GI SYSTEM: No recent GI bleeding. No peptic ulcer disease. SYSTEM: No dysuria or hematuria. NERVOUS SYSTEM: No stroke or seizure. PHYSICAL EXAMINATION: This is a 42-year-old male, alert, oriented, in no apparent distress. Blood pressure 130/80 with the heart rate in the 90s. HEAD: Normocephalic. EYES: Sclerae anicteric. NECK: Good upstroke. No bruit. No jugular venous distention. LUNGS: Clear to auscultation. HEART: Regular rate and rhythm, S1, S2. No S3. No rub or gallop. ABDOMEN: Soft, nontender. Positive bowel sounds. No organomegaly. EXTREMITIES: No edema. Intact distal pulses. LAB DATA: Lab data revealed troponin less than 0.012. BUN and creatinine of 8 and 1.0. Potassium 3.8. TSH 1.2. Free T4 of 0.92. Hemoglobin of 15.3. Chest x-ray shows no acute infiltrate. EKG on presentation revealed atrial fibrillation with rapid ventricular response, rate [address]-T wave changes. Subsequent EKG revealed sinus mechanism with no acute changes. IMPRESSION: 1. Paroxysmal atrial fibrillation could be exacerbated by the caffeine intake. 2. History of chronic tobacco use. 3. Large amount of caffeinated beverages. 4. Hyperlipidemia. RECOMMENDATION: The patient Chads-Vasc2 score is low and in view of that, I will stop the IV heparin, start him on oral Cardizem. Encouraged him to stop his caffeinated beverages. If he remains stable, he should be able to be discharged home today and followed as an outpatient. Thank you for this consult. We will follow with you. JUAN / RAMESH: [id number] /
[2017-09-30 11:51] VITALS: BP 146/84; PULSE 98
--- NOTE | 2017-09-30 16:07 | HP ---
HISTORY AND PHYSICAL CHIEF COMPLAINT: Chest pain. HISTORY OF PRESENT ILLNESS: This is the first known admission for this 42-year-old white male. He presented to the emergency room after he developed anterior chest pain which he describes as a pressure- like sensation. He noticed that his heart was racing as well. He had no significant shortness of breath, diaphoresis, nausea, etc. He has been having some trouble with constipation and has been taking his various remedies to try to help such as drinking a lot of caffeine. He has a history of hypertension and hyperlipidemia. REVIEW OF SYSTEMS: He has had no syncope, neurologic problems, murmurs, rheumatic fever, lung disease, cough, hemoptysis, orthopnea, PND, abdominal pain, nausea, vomiting, hematemesis, melena, hematochezia, and liver disease, renal disease, diabetes, etc. Past medical history, family history and personal and social histories reveal he is ALLERGIC TO MORPHINE. MEDICATIONS: He is on lisinopril and Zantac and nothing for the cholesterol. He has had no surgery. SOCIAL HISTORY: He does not smoke. PHYSICAL EXAM: Blood pressure 130/81 with a pulse of 68 and irregularly irregular. Respirations are normal. He is afebrile. In general, appeared to be well developed, well nourished, no acute distress. Skin color is normal. Skin is warm, dry. Lymph nodes are not enlarged. Head, ears, eyes, nose, mouth, and throat were normal. Neck veins not distended. Thyroid was not enlarged. Chest is clear. The cardiac exam is normal. Abdomen is soft, nontender. IMPRESSION: He is admitted to the hospital with diagnoses: 1. Atrial fibrillation with rapid ventricular response-convert back to normal sinus rhythm. 2. Hypertension. 3. History of hyperlipidemia. PLAN: 1. Bed rest. 2. IV fluids. 3. Cardiology consult. MMODL / IJN: [id number] /
--- NOTE | 2017-09-30 16:31 | DS ---
DISCHARGE SUMMARY CHIEF COMPLAINT: Atrial fibrillation. HISTORY OF PRESENT ILLNESS AND PHYSICAL EXAMINATION: Details of this man's history and physical can be found in the initial workup. LABORATORY STUDIES: While he was in the hospital he had laboratory studies, details of which can be found in the laboratory section of his chart. COURSE IN THE HOSPITAL: After admission he was placed on bedrest, started on intravenous fluids, and he was placed on Cardizem. He converted back to normal sinus rhythm. He was seen by Cardiology. It was felt that he could be discharged. Apparently he had been in the hospital about a week ago and had a complete cardiac workup for the same thing, which was not known to me. He will go home on his usual activity and diet and medication and follow up in several days. FINAL DIAGNOSES: 1. Episodic atrial fibrillation with rapid ventricular response. 2. Hypertension. 3. Gastritis. 4. Hyperlipidemia. OPERATIONS: None. CONSULTATION: Cardiology He is improved. MMJULIÁN / ALEKSN: [id number] /
[2017-09-30] MEDS ORDERED: NON-FORMULARY DRUG (Simvastatin [Simvastatin] 20 MG) PO SCH (21:00)
[2017-10-01] MEDS ORDERED: ASPIRIN 325 MG TAB PO SCH (09:00)
[2017-10-01] MEDS ORDERED: VERAPAMIL SR 120 MG TABLET.ER PO SCH (09:00)
== END 2017-09-30 14:31 | disposition home or self-care (01) ==
LOC: EC 00:48 → INTOOBSV 02:46 → 6SEL 02:46 → 2ORMAIN 07:41 → 6SEL 07:41 → UNDODISIN 14:31
PROVIDERS: ADMIT Family Medicine; ATTEND Family Medicine
DX: I48.0 Paroxysmal atrial fibrillation (principal); E78.5 Hyperlipidemia, unspecified; I10 Essential (primary) hypertension; F32.9 Major depressive disorder, single episode, unspecified; K59.00 Constipation, unspecified; G89.29 Other chronic pain; K29.70 Gastritis, unspecified, without bleeding; M25.559 Pain in unspecified hip; M54.9 Dorsalgia, unspecified; R19.7 Diarrhea, unspecified; Z79.899 Other long term (current) drug therapy; Z87.891 Personal history of nicotine dependence; Z88.5 Allergy status to narcotic agent; Z82.49 Family history of ischemic heart disease and other diseases of the circulatory system
CPT/HCPCS: 96376; 96368; 96365; 96366; 96375; 99291; 36415; 93005; 84439; 84481; 80053; 82550; 82553; 83735; 84443; 84484; 85025; 85049; 85610; 85730; 81003; 80306; 71045; G0378; J1644 ×2; J2765

== ENCOUNTER 2017-10-02 02:57 | Emergency (ER) | payer OTHER ==
[2017-10-02 04:01] LABS: Basophils % (A) 1 %; Eosinophils # (A) 0.2 k/uL (0-0.7); Eosinophils % (A) 3 %; HCT 48.5 % (39.0-53.0); HGB 16.3 gm/dL (13.0-17.5); Lymphocytes # (A) 1.3 k/uL (1.0-4.8); Lymphocytes % (A) 19 %; MCH 28.6 pg (25.0-35.0); MCHC 33.5 g/dL (31.0-37.0); MCV 85.3 fL (80.0-100.0); Mean Platelet Volume 8.4; Monocytes # (A) 0.4 k/uL (0-1.0); Monocytes % (A) 7 %; Neutrophils # (A) 4.7 k/uL (1.3-7.7); Neutrophils % (A) 70 %; Platelet Count 353 k/uL (150-450); RBC 5.69 m/uL (4.30-5.90); RDW 12.9 % (11.5-15.5); WBC 6.6 k/uL (3.8-10.6)
[2017-10-02 04:12] LABS: ALT 45 U/L (21-72); AST 30 U/L (17-59); Albumin 4.4 g/dL (3.5-5.0); Alkaline Phosphatase 117 U/L (38-126); Anion Gap 14 mmol/L; Blood Urea Nitrogen 12 mg/dL (9-20); Calcium 10.3 mg/dL (8.4-10.2); Carbon Dioxide 26 mmol/L (22-30); Chloride 104 mmol/L (98-107); Glucose 159 mg/dL (74-99); Magnesium 1.9 mg/dL (1.6-2.3); Potassium 3.9 mmol/L (3.5-5.1); Sodium 144 mmol/L (137-145); Total Bilirubin 0.5 mg/dL (0.2-1.3); Total Protein 7.9 g/dL (6.3-8.2)
[2017-10-02 04:22] LABS: Creatine Kinase 71 U/L (55-170)
[2017-10-02 04:25] LABS: Partial Thromboplastin Time 22.5 sec (22.0-30.0); Prothrombin Time 10.2 sec (9.0-12.0)
--- NOTE | 2017-10-02 04:27 | XR ---
EXAM: XR Chest, 2 Views CLINICAL HISTORY: ITS.REASON XR Reason: Chest Pain TECHNIQUE: Frontal and lateral views of the chest. COMPARISON: Chest x-ray dated 09/30/2017. FINDINGS: Lungs: Unremarkable. The lungs are clear. Pleural space: Unremarkable. No pneumothorax. Heart: Unremarkable. No cardiomegaly. Mediastinum: Unremarkable. Bones/joints: Unremarkable. IMPRESSION: Normal chest x-rays.
[2017-10-02 04:35] LABS: Creatine Kinase MB 0.2 ng/mL (0.0-2.4); Troponin I <0.012 ng/mL (0.000-0.034)
[2017-10-02 05:14] VITALS: BP 124/79; PULSE 70; RESP 18; TEMP 97.1
--- NOTE | 2017-10-02 05:17 | ED ---
Chest Pain HPI - General Chief Complaint: Chest Pain Stated Complaint: Chest Pain Time Seen by Provider: 10/02/17 03:02 Source: patient, family, EMS Mode of arrival: EMS Limitations: no limitations - History of Present Illness Initial Comments: 's patient is a 42-year-old man who presents to be evaluated for pain all across his chest area he states the pain is been going on since towards the end of August, and he was admitted and did have a stress test. He states he was also seen here subsequent to that visit. The pains have been occurring for number of hours tonight as well. He was concerned because he did have some palpitations and thought that he may have gone back and atrial fibrillation and he wanted to make sure that this was not the case. Patient denies dyspnea, diaphoresis, nausea or vomiting, lightheadedness or syncope. MD Complaint: chest pain Onset/Timin -: month(s) Onset: during rest Pain Location: substernal, left chest, right chest Pain Radiation: none Severity: moderate Quality: aching Consistency: constant Improves With: nothing Worsens With: palpation Treatments Prior to Arrival: none - Related Data Home Medications Medication Instructions Recorded Confirmed Simvastatin 20 mg PO HS 03/15/16 10/02/17 Citalopram Hydrobromide [CeleXA] 40 mg PO DAILY 09/10/17 10/02/17 Methocarbamol [Robaxin] 750 mg PO BID PRN 09/10/17 10/02/17 Naproxen 500 mg PO Q12HR PRN 09/10/17 10/02/17 Ranitidine HCl [Zantac] 150 mg PO BID 09/30/17 10/02/17 Previous Rx's Medication Instructions Recorded Verapamil Sr [Isoptin Sr] 120 mg PO DAILY tablet.er 09/30/17 Allergies Allergy/AdvReac Type Severity Reaction Status Date / Time morphine AdvReac Nausea & Verified 10/02/17 03:01 Vomiting Review of Systems ROS Statement: Those systems with pertinent positive or pertinent negative responses have been documented in the HPI. ROS Other: All systems not noted in ROS Statement are negative. Constitutional: Denies: fever, chills Respiratory: Denies: cough, dyspnea Cardiovascular: Reports: as per HPI, chest pain, palpitations. Denies: orthopnea, edema, syncope Gastrointestinal: Denies: abdominal pain, vomiting, diarrhea, melena, hematochezia Genitourinary: Denies: dysuria Musculoskeletal: Denies: back pain Skin: Denies: rash Neurological: Denies: headache, weakness, numbness EKG Findings - EKG Comments: EKG Findings:: The ECG is similar to the comparison from patient's previous admission however on that previous EKG the rhythm was atrial fibrillation and this time it is sinus rhythm - EKG Results: EKG: interpreted by ERMD, sinus rhythm (Rate approximate 74 bpm), normal axis, normal ST/T - Blocks, [place], Hypertrophy, ST Abn: AV and intraventricular conduction: left anterior fascicular block Chamber hypertrophy or enlargement: left ventricular hypertrophy or enlargement (LVE) Past Medical History Past Medical History: Hyperlipidemia, Hypertension Additional Past Medical History / Comment(s): chronic back pain and hip pain History of Any Multi-Drug Resistant Organisms: None Reported Past Surgical History: No Surgical Hx Reported Past Anesthesia/Blood Transfusion Reactions: No Reported Reaction Past Psychological History: Depression Smoking Status: Former smoker Past Alcohol Use History: Occasional Past Drug Use History: None Reported - Past Family History Father Family Medical History: Hypertension General Exam Limitations: no limitations General appearance: alert, in no apparent distress Head exam: Present: atraumatic, normocephalic Eye exam: Present: normal appearance. Absent: scleral icterus, conjunctival injection ENT exam: Present: normal oropharynx Respiratory exam: Present: normal lung sounds bilaterally. Absent: respiratory distress, wheezes, rales, rhonchi, stridor Cardiovascular Exam: Present: regular rate, normal rhythm, normal heart sounds. Absent: systolic murmur, diastolic murmur, rubs, gallop GI/Abdominal exam: Present: soft. Absent: distended, tenderness, guarding, rebound Extremities exam: Present: normal inspection, normal capillary refill. Absent: pedal edema, calf tenderness Back exam: Present: normal inspection. Absent: CVA tenderness (R), CVA tenderness (L) Neurological exam: Present: alert, oriented X3, normal gait Skin exam: Present: warm, dry, intact, normal color. Absent: rash Course Vital Signs 10/02/17 10/02/17 10/02/17 02:58 03:01 03:45 Temperature 98.3 F Pulse Rate 78 91 Respiratory 18 18 20 Rate Blood Pressure 142/80 135/69 O2 Sat by Pulse 95 98 Oximetry 10/02/17 05:01 Temperature 97.1 F L Pulse Rate 70 Respiratory 18 Rate Blood Pressure 124/79 O2 Sat by Pulse 97 Oximetry Chest Pain MDM - MDM This patient is a 42-year-old man with chest pains since August. He presents tonight mainly with concern that he had gone back into atrial fibrillation, but his EKG does demonstrate sinus rhythm. Further his workup is negative. The patient has not had change in the pain tonight, and therefore one set of troponins will be adequate. The patient is going to follow with cardiology, and he had called for an appointment last week and states that they were in the process of scheduling him. we did discuss return parameters. Disposition Clinical Impression: Chest pain Disposition: HOME SELF-CARE Condition: Good Instructions: Chest Pain (ED) Referrals: Batool Alfred MD [Primary Care Provider] - 1-2 days
== END 2017-10-02 05:32 | disposition home or self-care (01) ==
LOC: EC 02:57
DX: R07.2 Precordial pain (principal); R00.2 Palpitations; E78.5 Hyperlipidemia, unspecified; F32.9 Major depressive disorder, single episode, unspecified; Z87.891 Personal history of nicotine dependence; Z79.899 Other long term (current) drug therapy; Z88.5 Allergy status to narcotic agent
CPT/HCPCS: 36415; 71046; 80053; 82550; 82553; 83735; 84484; 85025; 85610; 85730; 93005; 99285

== ENCOUNTER 2017-10-17 18:51 | Emergency (ER) | payer OTHER ==
[2017-10-17] MEDS ORDERED: SODIUM CHLORIDE 0.9% 1,000 ML IV ONE (19:17)
--- NOTE | 2017-10-17 19:18 | ED ---
General Adult HPI - General Chief complaint: Arrhythmia/Palpitations Stated complaint: palpitations Time Seen by Provider: 10/17/17 18:57 Source: patient, EMS, RN notes reviewed Mode of arrival: EMS Limitations: no limitations - History of Present Illness Initial comments: 42-year-old male history of atrial fibrillation, presents with chief complaint of palpitations. Patient states that he drank 32 ounces of Mountain Dew, he began a new exercise routine. States he felt a pounding in his chest, he was concerned that this was atrial fibrillation. He is on medications for A. fib although he is uncertain what these medications are. He did report some left- sided chest pain, worse with exercise. This is minimal at the time my evaluation. He has no known history of coronary artery disease. Patient does admit to some anxiety about his symptoms. Denies any abdominal pain. Denies nausea vomiting or diarrhea. Denies cough or fever or chills. - Related Data Home Medications Medication Instructions Recorded Confirmed Simvastatin 20 mg PO HS 03/15/16 10/17/17 Citalopram Hydrobromide [CeleXA] 40 mg PO DAILY 09/10/17 10/17/17 Methocarbamol [Robaxin] 750 mg PO BID PRN 09/10/17 10/17/17 Naproxen 500 mg PO Q12HR PRN 09/10/17 10/17/17 Ranitidine HCl [Zantac] 150 mg PO BID 09/30/17 10/17/17 Previous Rx's Medication Instructions Recorded Verapamil Sr [Isoptin Sr] 120 mg PO DAILY tablet.er 09/30/17 Ibuprofen [Motrin] 600 mg PO Q8HR PRN #24 tab 10/17/17 Allergies Allergy/AdvReac Type Severity Reaction Status Date / Time morphine AdvReac Nausea & Verified 10/17/17 19:19 Vomiting Review of Systems ROS Statement: Those systems with pertinent positive or pertinent negative responses have been documented in the HPI. ROS Other: All systems not noted in ROS Statement are negative. Past Medical History Past Medical History: Hyperlipidemia, Hypertension Additional Past Medical History / Comment(s): chronic back pain and hip pain History of Any Multi-Drug Resistant Organisms: None Reported Past Surgical History: No Surgical Hx Reported Past Anesthesia/Blood Transfusion Reactions: No Reported Reaction Past Psychological History: Depression Smoking Status: Former smoker Past Alcohol Use History: Occasional Past Drug Use History: None Reported - Past Family History Father Family Medical History: Hypertension General Exam Limitations: no limitations General appearance: alert, anxious Head exam: Present: atraumatic, normocephalic Eye exam: Present: normal appearance, PERRL, EOMI ENT exam: Present: mucous membranes moist Neck exam: Present: normal inspection. Absent: tenderness, meningismus Respiratory exam: Present: normal lung sounds bilaterally, chest wall tenderness (Left anterior parasternal chest tenderness). Absent: respiratory distress, wheezes Cardiovascular Exam: Present: regular rate, normal rhythm GI/Abdominal exam: Present: soft. Absent: distended, tenderness, guarding Extremities exam: Present: normal inspection, normal capillary refill. Absent: pedal edema Neurological exam: Present: alert, oriented X3. Absent: motor sensory deficit Psychiatric exam: Present: anxious Skin exam: Present: warm, dry, intact. 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 Repeat EKG at 2040 shows normal sinus rhythm with sinus arrhythmia, left axis deviation, LVH, ventricular rate of 82, VT interval 150, QRS duration 104, QTC 462, no vomiting signs of ischemia, again patient is tremulous Medical Decision Making - Medical Decision Making 42-year-old male presenting with palpitations while working out and drinking Mountain Dew. He was concerned he was in atrial fibrillation, he is in normal sinus rhythm in the emergency department. He also had some chest pain which was reproducible, not typical of coronary ischemia. Workup including CBC, CMP unremarkable, d-dimer negative, troponin negative, urine drug screen negative. 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 He will reduce his exercise regimen as he was overexerting himself, attempting to do as many repetitions of pushups as he could. - Lab Data Result diagrams: 10/17/17 19:00 10/17/17 19:00 Lab Results 10/17/17 10/17/17 10/17/17 Range/Units 19:00 19:00 19:00 WBC 8.7 (3.8-10.6) k/uL RBC 5.37 (4.30-5.90) m/uL Hgb 15.9 (13.0-17.5) gm/dL Hct 45.6 (39.0-53.0) % MCV 85.0 (80.0-100.0) fL MCH 29.7 (25.0-35.0) pg MCHC 35.0 (31.0-37.0) g/dL RDW 12.8 (11.5-15.5) % Plt Count 339 (150-450) k/uL Neutrophils % 63 % Lymphocytes % 24 % Monocytes % 8 % Eosinophils % 2 % Basophils % 1 % Neutrophils # 5.5 (1.3-7.7) k/uL Lymphocytes # 2.1 (1.0-4.8) k/uL Monocytes # 0.7 (0-1.0) k/uL Eosinophils # 0.2 (0-0.7) k/uL Basophils # 0.1 (0-0.2) k/uL PT (9.0-12.0) sec INR (<1.2) APTT (22.0-30.0) sec D-Dimer (<0.60) mg/L FEU Sodium 145 (137-145) mmol/L Potassium 3.8 (3.5-5.1) mmol/L Chloride 108 H (98-107) mmol/L Carbon Dioxide 23 (22-30) mmol/L Anion Gap 14 mmol/L BUN 8 L (9-20) mg/dL Creatinine 1.00 (0.66-1.25) mg/dL Est GFR (MDRD) Af Amer >60 (>60 ml/min/1.73 sqM) Est GFR (MDRD) Non-Af >60 (>60 ml/min/1.73 sqM) Glucose 153 H (74-99) mg/dL Calcium 9.6 (8.4-10.2) mg/dL Magnesium 1.8 (1.6-2.3) mg/dL Total Bilirubin 0.5 (0.2-1.3) mg/dL AST 27 (17-59) U/L ALT 39 (21-72) U/L Alkaline Phosphatase 93 (38-126) U/L Total Creatine Kinase 97 (55-170) U/L CK-MB (CK-2) 0.3 (0.0-2.4) ng/mL CK-MB (CK-2) Rel Index 0.3 Troponin I <0.012 (0.000-0.034) ng/mL Total Protein 7.3 (6.3-8.2) g/dL Albumin 4.2 (3.5-5.0) g/dL Urine Opiates Screen (NotDetected) Ur Oxycodone Screen (NotDetected) Urine Methadone Screen (NotDetected) Ur Propoxyphene Screen (NotDetected) Ur Barbiturates Screen (NotDetected) U Tricyclic Antidepress (NotDetected) Ur Phencyclidine Scrn (NotDetected) Ur Amphetamines Screen (NotDetected) U Methamphetamines Scrn (NotDetected) U Benzodiazepines Scrn (NotDetected) Urine Cocaine Screen (NotDetected) U Marijuana (THC) Screen (NotDetected) 10/17/17 10/17/17 Range/Units 19:00 19:22 WBC (3.8-10.6) k/uL RBC (4.30-5.90) m/uL Hgb (13.0-17.5) gm/dL Hct (39.0-53.0) % MCV (80.0-100.0) fL MCH (25.0-35.0) pg MCHC (31.0-37.0) g/dL RDW (11.5-15.5) % Plt Count (150-450) k/uL Neutrophils % % Lymphocytes % % Monocytes % % Eosinophils % % Basophils % % Neutrophils # (1.3-7.7) k/uL Lymphocytes # (1.0-4.8) k/uL Monocytes # (0-1.0) k/uL Eosinophils # (0-0.7) k/uL Basophils # (0-0.2) k/uL PT 10.5 (9.0-12.0) sec INR 1.1 (<1.2) APTT 23.5 (22.0-30.0) sec D-Dimer 0.30 (<0.60) mg/L FEU Sodium (137-145) mmol/L Potassium (3.5-5.1) mmol/L Chloride (98-107) mmol/L Carbon Dioxide (22-30) mmol/L Anion Gap mmol/L BUN (9-20) mg/dL Creatinine (0.66-1.25) mg/dL Est GFR (MDRD) Af Amer (>60 ml/min/1.73 sqM) Est GFR (MDRD) Non-Af (>60 ml/min/1.73 sqM) Glucose (74-99) mg/dL Calcium (8.4-10.2) mg/dL Magnesium (1.6-2.3) mg/dL Total Bilirubin (0.2-1.3) mg/dL AST (17-59) U/L ALT (21-72) U/L Alkaline Phosphatase (38-126) U/L Total Creatine Kinase (55-170) U/L CK-MB (CK-2) (0.0-2.4) ng/mL CK-MB (CK-2) Rel Index Troponin I (0.000-0.034) ng/mL Total Protein (6.3-8.2) g/dL Albumin (3.5-5.0) g/dL Urine Opiates Screen Not Detected (NotDetected) Ur Oxycodone Screen Not Detected (NotDetected) Urine Methadone Screen Not Detected (NotDetected) Ur Propoxyphene Screen Not Detected (NotDetected) Ur Barbiturates Screen Not Detected (NotDetected) U Tricyclic Antidepress Not Detected (NotDetected) Ur Phencyclidine Scrn Not Detected (NotDetected) Ur Amphetamines Screen Not Detected (NotDetected) U Methamphetamines Scrn Not Detected (NotDetected) U Benzodiazepines Scrn Not Detected (NotDetected) Urine Cocaine Screen Not Detected (NotDetected) U Marijuana (THC) Screen Not Detected (NotDetected) Disposition Clinical Impression: Palpitations, Chest wall muscle strain Disposition: HOME SELF-CARE Condition: Good Instructions: Palpitations (ED) Prescriptions: Ibuprofen [Motrin] 600 mg PO Q8HR PRN #24 tab PRN Reason: Pain Referrals: Batool Alfred MD [Primary Care Provider] - 1-2 days Time of Disposition: 21:39
[2017-10-17 19:20] LABS: Basophils # (A) 0.1 k/uL (0-0.2); Basophils % (A) 1 %; Eosinophils # (A) 0.2 k/uL (0-0.7); Eosinophils % (A) 2 %; HCT 45.6 % (39.0-53.0); HGB 15.9 gm/dL (13.0-17.5); Lymphocytes # (A) 2.1 k/uL (1.0-4.8); Lymphocytes % (A) 24 %; MCH 29.7 pg (25.0-35.0); Monocytes # (A) 0.7 k/uL (0-1.0); Monocytes % (A) 8 %; Neutrophils # (A) 5.5 k/uL (1.3-7.7); Neutrophils % (A) 63 %; Platelet Count 339 k/uL (150-450); RBC 5.37 m/uL (4.30-5.90); RDW 12.8 % (11.5-15.5); WBC 8.7 k/uL (3.8-10.6)
[2017-10-17 19:41] LABS: ALT 39 U/L (21-72); AST 27 U/L (17-59); Albumin 4.2 g/dL (3.5-5.0); Alkaline Phosphatase 93 U/L (38-126); Anion Gap 14 mmol/L; Blood Urea Nitrogen 8 mg/dL (9-20); Calcium 9.6 mg/dL (8.4-10.2); Carbon Dioxide 23 mmol/L (22-30); Chloride 108 mmol/L (98-107); Glucose 153 mg/dL (74-99); Potassium 3.8 mmol/L (3.5-5.1); Sodium 145 mmol/L (137-145); Total Bilirubin 0.5 mg/dL (0.2-1.3); Total Protein 7.3 g/dL (6.3-8.2)
[2017-10-17 19:42] LABS: Creatine Kinase 97 U/L (55-170)
[2017-10-17] MEDS ORDERED: KETOROLAC 30 MG/ML 1 ML VIAL IVP STA (19:46)
[2017-10-17 19:48] LABS: D-Dimer 0.3 mg/L FEU (<0.60)
[2017-10-17 19:51] LABS: Amphetamine Screen,Urine Not Detected (NotDetected); Barbiturate Screen,Urine Not Detected (NotDetected); Benzodiazepines Screen,Urine Not Detected (NotDetected); Cocaine Screen,Urine Not Detected (NotDetected); Methadone Screen, Urine Not Detected (NotDetected); Opiate Screen,Urine Not Detected (NotDetected); Oxycodone Screen, Urine Not Detected (NotDetected); Phencyclidine Screen,Urine Not Detected (NotDetected); Tricyclic Antidepressant,Urine Not Detected (NotDetected); Urn Cannabinoid Scrn Not Detected (NotDetected)
[2017-10-17 19:52] LABS: INR 1.1 (<1.2); Partial Thromboplastin Time 23.5 sec (22.0-30.0); Prothrombin Time 10.5 sec (9.0-12.0)
[2017-10-17 19:55] LABS: Creatine Kinase MB 0.3 ng/mL (0.0-2.4); Troponin I <0.012 ng/mL (0.000-0.034)
--- NOTE | 2017-10-17 20:07 | XR ---
EXAMINATION TYPE: XR chest 2V DATE OF EXAM: 10/17/2017 COMPARISON: 10/02/2017 INDICATION: Dysrhythmia chest pain TECHNIQUE: Frontal and lateral views of the chest are obtained. FINDINGS: The heart size is normal. The pulmonary vasculature is normal. The lungs are clear. IMPRESSION: 1. No acute pulmonary process.
[2017-10-17 22:08] VITALS: BP 116/69; PULSE 72; RESP 20; TEMP 98.6
== END 2017-10-17 22:08 | disposition home or self-care (01) ==
LOC: EC 18:51
DX: S29.011A Strain of muscle and tendon of front wall of thorax, initial encounter (principal); R00.2 Palpitations; F41.9 Anxiety disorder, unspecified; E78.5 Hyperlipidemia, unspecified; F32.9 Major depressive disorder, single episode, unspecified; Z87.891 Personal history of nicotine dependence; Z79.899 Other long term (current) drug therapy; Z88.5 Allergy status to narcotic agent
CPT/HCPCS: 36415; 93005; 85379; 80053; 82550; 82553; 83735; 84484; 85025; 85610; 85730; 80306; 71046; 99285; 96374; 96361 ×3; J1885

== ENCOUNTER 2017-10-25 01:22 | Emergency (ER) | payer OTHER ==
[2017-10-25 01:28] VITALS: BP 138/84; PULSE 77; RESP 18; TEMP 97.7
[2017-10-25] MEDS ORDERED: NITROGLYCERIN OINT 1 INCH/GM PACKET TOPICAL STA (01:42)
[2017-10-25] MEDS ORDERED: ONDANSETRON 4 MG/2 ML VIAL IVP STA (01:42)
[2017-10-25] MEDS ORDERED: ASPIRIN 81 MG PO STA (01:42)
[2017-10-25] MEDS ORDERED: SODIUM CHLORIDE 0.9% 1,000 ML IV STA (01:42)
[2017-10-25 02:32] LABS: Basophils # (A) 0.1 k/uL (0-0.2); Basophils % (A) 1 %; Eosinophils # (A) 0.2 k/uL (0-0.7); Eosinophils % (A) 3 %; HCT 43.9 % (39.0-53.0); Lymphocytes # (A) 1.4 k/uL (1.0-4.8); Lymphocytes % (A) 23 %; MCH 28.5 pg (25.0-35.0); MCHC 34.3 g/dL (31.0-37.0); MCV 83.2 fL (80.0-100.0); Mean Platelet Volume 7.3; Monocytes # (A) 0.5 k/uL (0-1.0); Monocytes % (A) 9 %; Neutrophils # (A) 3.7 k/uL (1.3-7.7); Neutrophils % (A) 62 %; Platelet Count 304 k/uL (150-450); RBC 5.28 m/uL (4.30-5.90); RDW 13.1 % (11.5-15.5)
[2017-10-25 02:40] LABS: Creatine Kinase 116 U/L (55-170)
[2017-10-25 02:42] LABS: ALT 42 U/L (21-72); AST 34 U/L (17-59); Albumin 4.3 g/dL (3.5-5.0); Alkaline Phosphatase 101 U/L (38-126); Anion Gap 12 mmol/L; Blood Urea Nitrogen 9 mg/dL (9-20); Calcium 9.9 mg/dL (8.4-10.2); Carbon Dioxide 25 mmol/L (22-30); Chloride 107 mmol/L (98-107); Glucose 115 mg/dL (74-99); Magnesium 1.9 mg/dL (1.6-2.3); Potassium 4.2 mmol/L (3.5-5.1); Sodium 144 mmol/L (137-145); Total Bilirubin 0.5 mg/dL (0.2-1.3); Total Protein 7.5 g/dL (6.3-8.2)
[2017-10-25 02:53] LABS: Creatine Kinase MB 0.5 ng/mL (0.0-2.4); Troponin I <0.012 ng/mL (0.000-0.034)
--- NOTE | 2017-10-25 03:16 | XR ---
EXAMINATION TYPE: XR chest 2V DATE OF EXAM: 10/25/2017 COMPARISON: 10/17/2017 HISTORY: Chest pain TECHNIQUE: Frontal and lateral views of the chest are obtained. FINDINGS: There is no heart failure nor confluent pneumonic infiltrate. There is slight coarsening o f interstitial markings in the left lower lobe. There are chest leads. Heart size is normal. There is no sign of pleural effusion. Bony thorax is intact. IMPRESSION: Mild chronic interstitial changes at the left lung base. No pulmonary consolidation or h eart failure.
[2017-10-25 03:17] LABS: Appearance,Urine Clear (Clear); Bilirubin,Urine Negative (Negative); Blood,Urine Negative (Negative); Color,Urine Light Yellow; Glucose,Urine (UA) Negative (Negative); Ketones,Urine Negative (Negative); Leukocyte Esterase,Urine Negative (Negative); Nitrite,Urine Negative (Negative); Protein,Urine Negative (Negative); Specific Gravity,Urine 1.006 (1.001-1.035); Urobilinogen,Urine <2.0 mg/dL (<2.0)
[2017-10-25 03:37] LABS: Partial Thromboplastin Time 24.5 sec (22.0-30.0)
--- NOTE | 2017-10-25 03:45 | ED ---
Chest Pain HPI - General Chief Complaint: Chest Pain Stated Complaint: Chest Pain Time Seen by Provider: 10/25/17 01:36 Source: patient Mode of arrival: ambulatory Limitations: no limitations - History of Present Illness Initial Comments: Total 2 years old male presents with the chest pain, he said chest pain started about 2 hours prior to his arrival to the ER he was resting when the chest pain started he denies any shortness of breath no pleuritic chest pain denies any fever no chills is not coughing up any phlegm. Denies any headaches no neck stiffness does have a chest pain no shortness of breath no abdominal pain no frequency urgency dysuria no symptoms of TIA or CVA - Related Data Home Medications Medication Instructions Recorded Confirmed Simvastatin 20 mg PO HS 03/15/16 10/17/17 Citalopram Hydrobromide [CeleXA] 40 mg PO DAILY 09/10/17 10/17/17 Methocarbamol [Robaxin] 750 mg PO BID PRN 09/10/17 10/17/17 Naproxen 500 mg PO Q12HR PRN 09/10/17 10/17/17 Ranitidine HCl [Zantac] 150 mg PO BID 09/30/17 10/17/17 Previous Rx's Medication Instructions Recorded Verapamil Sr [Isoptin Sr] 120 mg PO DAILY tablet.er 09/30/17 Ibuprofen [Motrin] 600 mg PO Q8HR PRN #24 tab 10/17/17 Allergies Allergy/AdvReac Type Severity Reaction Status Date / Time morphine AdvReac Nausea & Verified 10/25/17 01:28 Vomiting Review of Systems ROS Statement: Those systems with pertinent positive or pertinent negative responses have been documented in the HPI. ROS Other: All systems not noted in ROS Statement are negative. EKG Findings - EKG Comments: EKG Findings:: EKG is normal sinus rhythm ventricular rate is 69 [place] interval is 156 QRS duration is 94 QT/QTC 398/426 review of this EKG does not reveal any ST elevation or ST depression Past Medical History Past Medical History: Hyperlipidemia, Hypertension Additional Past Medical History / Comment(s): chronic back pain and hip pain History of Any Multi-Drug Resistant Organisms: None Reported Past Surgical History: No Surgical Hx Reported Past Anesthesia/Blood Transfusion Reactions: No Reported Reaction Past Psychological History: Depression Smoking Status: Former smoker Past Alcohol Use History: Occasional Past Drug Use History: None Reported - Past Family History Father Family Medical History: Hypertension General Exam - General Exam Comments Initial Comments: General: The patient is awake and alert, in no distress, and does not appear acutely ill. Skin: Skin is warm and dry and no rashes or lesions are noted. Eye: Pupils are equal, round and reactive to light, extra-ocular movements are intact; there is normal conjunctiva bilaterally. Ears, nose, mouth and throat: There are moist mucous membranes and no oral lesions. Neck: The neck is supple, there is no tenderness or JVD. Cardiovascular: There is a regular rate and rhythm. No murmur, rub or gallop is appreciated. Respiratory: To auscultation bilateral, no wheezing no rhonchi no distress respiratory daley noticed Gastrointestinal: Soft, non-distended, non-tender abdomen without masses or organomegaly noted. There is no rebound or guarding present. Bowel sounds are unremarkable. Back: There is no tenderness to palpation in the midline. There is no obvious deformity. Musculoskeletal: Normal ROM, no tenderness, There is no pedal edema. There is no calf tenderness or swelling. No cords were appreciated. Neurological: CN II-XII intact, Cranial nerves III through XII are intact. There are no obvious motor or sensory deficits. Coordination appears grossly intact. Speech is normal. Psychiatric: Cooperative, appropriate mood & affect, normal judgment. 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 Disposition Clinical Impression: Chest pain Disposition: Left Against Medical Advice Condition: Good Instructions: Chest Pain (ED) Referrals: Batool Alfred MD [Primary Care Provider] - 1-2 days Eric Gar MD [STAFF PHYSICIAN] - 1-2 days
[2017-10-25 03:46] LABS: Prothrombin Time 10.2 sec (9.0-12.0)
== END 2017-10-25 03:50 | disposition left against medical advice (07) ==
LOC: EC 01:22
DX: R07.9 Chest pain, unspecified (principal); E78.5 Hyperlipidemia, unspecified; F32.9 Major depressive disorder, single episode, unspecified; Z87.891 Personal history of nicotine dependence; Z79.899 Other long term (current) drug therapy; Z88.5 Allergy status to narcotic agent
CPT/HCPCS: 36415; 93005; 80053; 82550; 82553; 83735; 84484; 85025; 85610; 85730; 81003; 71046; 99285; 96374; 96361; J2405

== ENCOUNTER 2017-11-13 17:49 | Emergency (ER) | payer OTHER ==
[2017-11-13 17:54] VITALS: RESP 18; TEMP 98.5
[2017-11-13] MEDS ORDERED: KETOROLAC 30 MG/ML 1 ML VIAL IVP STA (18:03)
[2017-11-13] MEDS ORDERED: SODIUM CHLORIDE 0.9% 1,000 ML IV STA ×2 (18:03)
--- NOTE | 2017-11-13 18:08 | ED ---
General Adult HPI - General Chief complaint: Chest Pain Stated complaint: CHEST PAIN, HEADACHE Time Seen by Provider: 11/13/17 17:57 Source: patient, family, RN notes reviewed Mode of arrival: ambulatory Limitations: no limitations - History of Present Illness Initial comments: This is a 42-year-old male with a history of chronic atrial fibrillation who states that he had the onset last evening of neck pain goes across his shoulders from left to right sharp in nature. Increases with movement she also states he had a headache this started last night along with this. He also states she's had some intermittent abdominal symptoms are nonspecific. The headache is associated with neck pain which is sharp nonspecific moderate in severity about 02/21 - Related Data Home Medications Medication Instructions Recorded Confirmed Simvastatin 20 mg PO HS 03/15/16 11/13/17 Citalopram Hydrobromide [CeleXA] 40 mg PO DAILY 09/10/17 11/13/17 Methocarbamol [Robaxin] 750 mg PO BID PRN 09/10/17 11/13/17 Previous Rx's Medication Instructions Recorded Verapamil Sr [Isoptin Sr] 120 mg PO DAILY tablet.er 09/30/17 Ibuprofen 800 mg PO Q6HR PRN #20 tablet 11/13/17 Methocarbamol [Robaxin-750] 750 mg PO Q6HR #16 tablet 11/13/17 predniSONE 20 mg PO BID #10 tab 11/13/17 Allergies Allergy/AdvReac Type Severity Reaction Status Date / Time morphine AdvReac Nausea & Verified 11/13/17 18:03 Vomiting Review of Systems ROS Statement: Those systems with pertinent positive or pertinent negative responses have been documented in the HPI. ROS Other: All systems not noted in ROS Statement are negative. Past Medical History Past Medical History: Hyperlipidemia, Hypertension Additional Past Medical History / Comment(s): chronic back pain and hip pain History of Any Multi-Drug Resistant Organisms: None Reported Past Surgical History: No Surgical Hx Reported Past Anesthesia/Blood Transfusion Reactions: No Reported Reaction Past Psychological History: Depression Smoking Status: Former smoker Past Alcohol Use History: Occasional Past Drug Use History: None Reported - Past Family History Father Family Medical History: Hypertension General Exam - General Exam Comments Initial Comments: This is a well-developed well-nourished awake alert oriented x3 male Limitations: no limitations General appearance: alert, in no apparent distress Head exam: Present: atraumatic, normocephalic, normal inspection Eye exam: Present: normal appearance, PERRL, EOMI. Absent: scleral icterus, conjunctival injection, periorbital swelling ENT exam: Present: normal exam, mucous membranes moist Neck exam: Present: normal inspection, tenderness (Paraspinous tenderness to palpation bilaterally no overt spinous process tenderness however), full ROM. Absent: meningismus, lymphadenopathy Respiratory exam: Present: normal lung sounds bilaterally. Absent: respiratory distress, wheezes, rales, rhonchi, stridor Cardiovascular Exam: Present: regular rate, normal rhythm, normal heart sounds. Absent: systolic murmur, diastolic murmur, rubs, gallop, clicks GI/Abdominal exam: Present: soft, normal bowel sounds. Absent: distended, tenderness, guarding, rebound, rigid Extremities exam: Present: normal inspection, full ROM, normal capillary refill. Absent: tenderness, pedal edema, joint swelling, calf tenderness Back exam: Present: normal inspection Neurological exam: Present: alert, oriented X3, CN II-XII intact Psychiatric exam: Present: normal affect, normal mood Skin exam: Present: warm, dry, intact, normal color. Absent: rash Course Vital Signs 11/13/17 17:51 Temperature 98.5 F Pulse Rate 92 Respiratory 18 Rate Blood Pressure 145/77 O2 Sat by Pulse 98 Oximetry EKG Findings - EKG Results: EKG: interpreted by TC, sinus rhythm (Sinus rhythm rate is 71 MT interval 166 QRS duration 98 QT since QTC of 414/449 left exodeviation moderate voltage criteria for LVH) Medical Decision Making - Medical Decision Making The patient is feeling improved the presentation is consistent with musculoskeletal pain he'll be discharged on appropriate medication. - Lab Data Result diagrams: 11/13/17 18:25 11/13/17 18:25 Lab Results 11/13/17 11/13/17 11/13/17 Range/Units 18:25 18:25 18:25 WBC 7.8 (3.8-10.6) k/uL RBC 5.55 (4.30-5.90) m/uL Hgb 16.0 (13.0-17.5) gm/dL Hct 45.6 (39.0-53.0) % MCV 82.1 (80.0-100.0) fL MCH 28.8 (25.0-35.0) pg MCHC 35.1 (31.0-37.0) g/dL RDW 12.7 (11.5-15.5) % Plt Count 344 (150-450) k/uL Neutrophils % 74 % Lymphocytes % 17 % Monocytes % 6 % Eosinophils % 1 % Basophils % 1 % Neutrophils # 5.8 (1.3-7.7) k/uL Lymphocytes # 1.3 (1.0-4.8) k/uL Monocytes # 0.4 (0-1.0) k/uL Eosinophils # 0.1 (0-0.7) k/uL Basophils # 0.0 (0-0.2) k/uL Sodium 145 (137-145) mmol/L Potassium 4.0 (3.5-5.1) mmol/L Chloride 106 (98-107) mmol/L Carbon Dioxide 22 (22-30) mmol/L Anion Gap 17 mmol/L BUN 13 (9-20) mg/dL Creatinine 1.02 (0.66-1.25) mg/dL Est GFR (CKD-EPI)AfAm >90 (>60 ml/min/1.73 sqM) Est GFR (CKD-EPI)NonAf >90 (>60 ml/min/1.73 sqM) Glucose 137 H (74-99) mg/dL Calcium 9.6 (8.4-10.2) mg/dL Magnesium 1.8 (1.6-2.3) mg/dL Total Bilirubin 0.8 (0.2-1.3) mg/dL AST 29 (17-59) U/L ALT 44 (21-72) U/L Alkaline Phosphatase 117 (38-126) U/L Total Creatine Kinase 93 (55-170) U/L CK-MB (CK-2) 0.4 (0.0-2.4) ng/mL CK-MB (CK-2) Rel Index 0.4 Troponin I <0.012 (0.000-0.034) ng/mL Total Protein 7.9 (6.3-8.2) g/dL Albumin 4.6 (3.5-5.0) g/dL - Radiology Data Radiology results: report reviewed (I did review the imaging and report no acute findings), image reviewed Disposition Clinical Impression: Cervical strain, Muscle spasm Disposition: HOME SELF-CARE Condition: Good Instructions: Neck Pain (ED), Cervical Strain (ED), Muscle Spasm (ED) Prescriptions: Ibuprofen 800 mg PO Q6HR PRN #20 tablet PRN Reason: Pain Methocarbamol [Robaxin-750] 750 mg PO Q6HR #16 tablet predniSONE 20 mg PO BID #10 tab Referrals: Batool Alfred MD [Primary Care Provider] - 1-2 days
[2017-11-13 18:45] LABS: Basophils % (A) 1 %; Eosinophils # (A) 0.1 k/uL (0-0.7); Eosinophils % (A) 1 %; HCT 45.6 % (39.0-53.0); Lymphocytes # (A) 1.3 k/uL (1.0-4.8); Lymphocytes % (A) 17 %; MCH 28.8 pg (25.0-35.0); MCHC 35.1 g/dL (31.0-37.0); MCV 82.1 fL (80.0-100.0); Mean Platelet Volume 7.3; Monocytes # (A) 0.4 k/uL (0-1.0); Monocytes % (A) 6 %; Neutrophils # (A) 5.8 k/uL (1.3-7.7); Neutrophils % (A) 74 %; Platelet Count 344 k/uL (150-450); RBC 5.55 m/uL (4.30-5.90); RDW 12.7 % (11.5-15.5); WBC 7.8 k/uL (3.8-10.6)
[2017-11-13 19:04] LABS: ALT 44 U/L (21-72); AST 29 U/L (17-59); Albumin 4.6 g/dL (3.5-5.0); Alkaline Phosphatase 117 U/L (38-126); Anion Gap 17 mmol/L; Blood Urea Nitrogen 13 mg/dL (9-20); Calcium 9.6 mg/dL (8.4-10.2); Carbon Dioxide 22 mmol/L (22-30); Chloride 106 mmol/L (98-107); Glucose 137 mg/dL (74-99); Magnesium 1.8 mg/dL (1.6-2.3); Sodium 145 mmol/L (137-145); Total Bilirubin 0.8 mg/dL (0.2-1.3); Total Protein 7.9 g/dL (6.3-8.2)
[2017-11-13 19:07] LABS: Creatine Kinase 93 U/L (55-170)
--- NOTE | 2017-11-13 19:09 | XR ---
EXAMINATION TYPE: XR chest 2V DATE OF EXAM: 11/13/2017 COMPARISON: 10/25/2017 HISTORY: 42-year-old male with cough and left-sided chest pain TECHNIQUE: PA and lateral views FINDINGS: The cardiomediastinal silhouette, aorta, and pulmonary vasculature are within normal limits. Mild int erstitial prominence is unchanged. Otherwise, lungs and pleural spaces are clear. IMPRESSION: Chronic changes, possible bronchitis or asthma. Otherwise, no acute cardiopulmonary process.
--- NOTE | 2017-11-13 19:09 | XR ---
EXAMINATION TYPE: XR cervical spine comp DATE OF EXAM: 11/13/2017 COMPARISON: 04/25/2017 HISTORY: 42-year-old male with left-sided pain and headaches TECHNIQUE: 5 views FINDINGS: No predental space widening or prevertebral soft tissue swelling. There is degenerative change at the C1 dens articulation and scattered mild anterior endplate spondylosis. Mild disc space narrowing at C7-T1. Alignment is preserved. There may be some narrowing of the left C3-C4 neuroforamen. No other s ignificant bony neuroforaminal narrowing identified normal odontoid view. IMPRESSION: No malalignment. Minimal scattered spondylotic change. Possible bony neuroforaminal narrowing on the left at C3-C4.
--- NOTE | 2017-11-13 19:15 | XR ---
EXAMINATION TYPE: XR abdomen 1V DATE OF EXAM: 11/13/2017 CLINICAL DATA: 42-year-old male with pain and nausea, PHH COMPARISON: 10/12/2013 FINDINGS: Lung bases are clear. No evidence for free intraperitoneal air. No dilated small bowel or air-fluid levels. Scattered air and stool seen within the colon. Mild stool burden. No suspicious calcifications identified. IMPRESSION: No evidence of bowel obstruction or free intraperitoneal air.
[2017-11-13 19:20] LABS: Creatine Kinase MB 0.4 ng/mL (0.0-2.4); Troponin I <0.012 ng/mL (0.000-0.034)
[2017-11-13 20:45] VITALS: BP 142/77; PULSE 60
== END 2017-11-13 20:46 | disposition home or self-care (01) ==
LOC: EC 17:49
DX: S16.1XXA Strain of muscle, fascia and tendon at neck level, initial encounter (principal); R07.9 Chest pain, unspecified; R51 Headache; E78.5 Hyperlipidemia, unspecified; F32.9 Major depressive disorder, single episode, unspecified; I48.2 Chronic atrial fibrillation; I10 Essential (primary) hypertension; Z87.891 Personal history of nicotine dependence; Z79.899 Other long term (current) drug therapy; Z88.5 Allergy status to narcotic agent
CPT/HCPCS: 36415; 93005; 80053; 82550; 82553; 83735; 84484; 85025; 72050; 71046; 74018; 99285; 96374; 96361; J1885

== ENCOUNTER → 2017-11-28 | Outpatient (CLI) | payer OTHER ==
[2017-11-28 09:48] LABS: Basophils % (A) 1 %; Eosinophils # (A) 0.2 k/uL (0-0.7); Eosinophils % (A) 3 %; HGB 16.5 gm/dL (13.0-17.5); Lymphocytes # (A) 1.6 k/uL (1.0-4.8); Lymphocytes % (A) 28 %; MCH 27.9 pg (25.0-35.0); MCV 84.5 fL (80.0-100.0); Mean Platelet Volume 7.7; Monocytes # (A) 0.4 k/uL (0-1.0); Monocytes % (A) 7 %; Neutrophils # (A) 3.4 k/uL (1.3-7.7); Neutrophils % (A) 60 %; Platelet Count 326 k/uL (150-450); RBC 5.91 m/uL (4.30-5.90); RDW 12.8 % (11.5-15.5); WBC 5.7 k/uL (3.8-10.6)
[2017-11-28 10:06] LABS: ALT 49 U/L (21-72); AST 32 U/L (17-59); Albumin 4.3 g/dL (3.5-5.0); Alkaline Phosphatase 102 U/L (38-126); Anion Gap 14 mmol/L; Blood Urea Nitrogen 10 mg/dL (9-20); Calcium 9.9 mg/dL (8.4-10.2); Carbon Dioxide 27 mmol/L (22-30); Chloride 106 mmol/L (98-107); Cholesterol 207 mg/dL (<200); Glucose 133 mg/dL (74-99); HDL Cholesterol 30 mg/dL (40-60); LDL Cholesterol,Calculated 138 mg/dL (0-99); Potassium 4.2 mmol/L (3.5-5.1); Sodium 147 mmol/L (137-145); Total Bilirubin 0.7 mg/dL (0.2-1.3); Total Protein 7.4 g/dL (6.3-8.2); Triglycerides 196 mg/dL (<150)
== END | disposition home or self-care (01) ==
LOC: LABWHC1 09:04
DX: Z00.01 Encounter for general adult medical examination with abnormal findings (principal)
CPT/HCPCS: 36415; 80053; 80061; 82306; 84443; 85025

== ENCOUNTER 2018-01-22 01:35 | Emergency (ER) | payer OTHER ==
--- NOTE | 2018-01-22 02:30 | ED ---
ENT HPI - General Chief complaint: Dental/Oral Stated complaint: Dental pain Time Seen by Provider: 01/22/18 01:58 Source: patient, RN notes reviewed Mode of arrival: ambulatory Limitations: no limitations - History of Present Illness Initial comments: This is a 42-year-old male who presents to the emergency department with chief complaint of sore under his tongue. Patient states that a couple of days ago he was eating tortilla chips. He states that one of the chips cut the right side of the floor of his mouth. States since that time he has noticed a sore that is irritating. He states he just wants it checked out and wonders if he needs to follow-up with his dentist. He denies any other injuries. Denies any significant pain. Denies fevers or chills, chest pain or shortness breath, abdominal pain, nausea or vomiting. - Related Data Home Medications Medication Instructions Recorded Confirmed Simvastatin 20 mg PO HS 03/15/16 01/22/18 Citalopram Hydrobromide [CeleXA] 40 mg PO DAILY 09/10/17 01/22/18 Methocarbamol [Robaxin] 750 mg PO BID PRN 09/10/17 01/22/18 Previous Rx's Medication Instructions Recorded Verapamil Sr [Isoptin Sr] 120 mg PO DAILY tablet.er 09/30/17 Ibuprofen 800 mg PO Q6HR PRN #20 tablet 11/13/17 Methocarbamol [Robaxin-750] 750 mg PO Q6HR #16 tablet 11/13/17 predniSONE 20 mg PO BID #10 tab 11/13/17 Allergies Allergy/AdvReac Type Severity Reaction Status Date / Time morphine AdvReac Nausea & Verified 01/22/18 01:45 Vomiting Review of Systems ROS Statement: Those systems with pertinent positive or pertinent negative responses have been documented in the HPI. ROS Other: All systems not noted in ROS Statement are negative. Past Medical History Past Medical History: Hyperlipidemia, Hypertension Additional Past Medical History / Comment(s): chronic back pain and hip pain History of Any Multi-Drug Resistant Organisms: None Reported Past Surgical History: No Surgical Hx Reported Past Anesthesia/Blood Transfusion Reactions: No Reported Reaction Past Psychological History: Depression Smoking Status: Former smoker Past Alcohol Use History: Occasional Past Drug Use History: None Reported - Past Family History Father Family Medical History: Hypertension General Exam - General Exam Comments Initial Comments: General: Awake and alert, well-developed; in no apparent distress. HEENT: Head atraumatic, normocephalic. Pupils are equal, round and reactive to light. Extraocular movements intact. Oropharynx moist without erythema or exudate. Small, white, ulcer-like lesion right side of the floor the mouth with mild surrounding inflammation. Poor dentition throughout. Neck: Supple. Normal ROM. Cardiovascular: Regular rate and rhythm. No murmurs, rubs or gallops. Chest symmetrical. Respiratory: Lungs clear to auscultation bilaterally. No wheezes, rales or rhonchi. Normal respiratory effort with no use of accessory muscles. Musculoskeletal: Normal ROM, no tenderness bilateral upper and lower extremities. Ambulating normally. Skin: [place], warm and dry without rashes. Neurological: Alert and oriented x3. CN II-XII grossly intact. Speech is fluent and answers are appropriate. No focal neuro deficits. Psychiatric: Normal mood and affect. No overt signs of depression or anxiety noted. Limitations: no limitations Course Vital Signs 01/22/18 01:41 Temperature 98.3 F Pulse Rate 71 Respiratory 20 Rate Blood Pressure 136/83 O2 Sat by Pulse 100 Oximetry Medical Decision Making - Medical Decision Making This is a 42-year-old male who presents to the emergency department with chief complaint of sore under his tongue. Patient was eating a tortilla chip a few days ago and cut the floor of his mouth. Since that time he is noticed a sore that he describes as irritating. On physical examination, there is a small ulcer-like lesion on the right side of the floor the mouth. Patient denies any associated symptoms. Denies fevers or chills. Denies any significant pain. Vital signs are stable and patient is no acute distress. He'll be discharged home at this time. Recommended follow-up with his primary care physician. Patient is in agreement with plan and voices understanding. All questions answered. Disposition Clinical Impression: Mouth sore Disposition: HOME SELF-CARE Condition: Good Instructions: Canker Sores (ED) Additional Instructions: Please follow up with primary care provider within 1-2 days. Return to emergency department if symptoms should worsen or any concerns arise. Is patient prescribed a controlled substance at d/c from ED?: No Referrals: Eleni Rodrigues MD [Primary Care Provider] - 1-2 days Time of Disposition: 02:35
[2018-01-22 02:41] VITALS: BP 121/71; PULSE 90; RESP 18; TEMP 97
== END 2018-01-22 02:41 | disposition home or self-care (01) ==
LOC: EC 01:35
DX: K13.79 Other lesions of oral mucosa (principal); E78.5 Hyperlipidemia, unspecified; I10 Essential (primary) hypertension; F32.9 Major depressive disorder, single episode, unspecified; Z87.891 Personal history of nicotine dependence; Z79.899 Other long term (current) drug therapy; Z88.5 Allergy status to narcotic agent
CPT/HCPCS: 99282

== ENCOUNTER 2018-03-03 00:49 | Emergency (ER) | payer OTHER ==
[2018-03-03 05:46] LABS: Appearance,Urine Clear (Clear); Bilirubin,Urine Negative (Negative); Blood,Urine Negative (Negative); Color,Urine Yellow; Glucose,Urine (UA) Negative (Negative); Ketones,Urine Negative (Negative); Leukocyte Esterase,Urine Negative (Negative); Mucus,Urine Rare /hpf; Nitrite,Urine Negative (Negative); PH, Urine 5.5 (5.0-8.0); Protein,Urine Negative (Negative); RBC,Urine <1 /hpf (0-5); Specific Gravity,Urine 1.013 (1.001-1.035); Urobilinogen,Urine <2.0 mg/dL (<2.0); WBC,Urine 1 /hpf (0-5)
== END 2018-03-03 01:47 | disposition home or self-care (01) ==
LOC: EC 00:49
DX: S39.012A Strain of muscle, fascia and tendon of lower back, initial encounter (principal); Z88.5 Allergy status to narcotic agent; X50.0XXA Overexertion from strenuous movement or load, initial encounter
CPT/HCPCS: 81003; 99283

== ENCOUNTER 2018-06-21 13:16 | Emergency (ER) | payer OTHER ==
[2018-06-21 13:38] VITALS: BP 143/76; PULSE 72; RESP 18; TEMP 99.2
--- NOTE | 2018-06-21 14:54 | XR ---
EXAMINATION TYPE: XR chest 2V DATE OF EXAM: 06/21/2018 COMPARISON: Chest x-ray November 13, 2017 HISTORY: Cough for one week. TECHNIQUE: Frontal and lateral views of the chest are obtained. FINDINGS: There is no focal air space opacity, pleural effusion, or pneumothorax seen. The cardiac silhouette size is within normal limits. The osseous structures are intact. IMPRESSION: No suspicious acute infiltrate.
--- NOTE | 2018-06-21 15:18 | ED ---
URI HPI - General Chief Complaint: Upper Respiratory Infection Stated Complaint: URI Time Seen by Provider: 06/21/18 13:39 Source: patient Mode of arrival: ambulatory Limitations: no limitations - History of Present Illness Initial Comments: 43-year-old male with past medical history of hypertension which patient states has resolved presents today for chief complaint one week of sore throat. Patient states that he had a sore throat that began last week, in addition he noted some congestion. Patient states that the sore throat subsided however return for the past 3 days. Patient states he's been taking cough drops, over- the-counter NyQuil and DayQuil. He states that the cough increased at night. Patient denies any chest pain, shortness of breath, dyspnea, green sputum, fever, chills or night sweats. Patient denies any difficulty swallowing or breathing, ear pain, body aches, diarrhea, nausea, vomiting, headache, photophobia or neck stiffness or any other associated symptoms. Remainder of ROS negative, patient denies any recent back pain, abdominal pain, nausea or vomiting, numbness or tingling, dysuria or hematuria, constipation or diarrhea, headaches or visual changes, or any other complaints. Upon arrival pt VS within normal limits, pt appears well, nontoxic and shows no signs of respiratory distress. - Related Data Home Medications Medication Instructions Recorded Confirmed Simvastatin 20 mg PO HS 03/15/16 01/22/18 Citalopram Hydrobromide [CeleXA] 40 mg PO DAILY 09/10/17 01/22/18 Methocarbamol [Robaxin] 750 mg PO BID PRN 09/10/17 01/22/18 Previous Rx's Medication Instructions Recorded Verapamil Sr [Isoptin Sr] 120 mg PO DAILY tablet.er 09/30/17 Ibuprofen 800 mg PO Q6HR PRN #20 tablet 11/13/17 Methocarbamol [Robaxin-750] 750 mg PO Q6HR #16 tablet 11/13/17 predniSONE 20 mg PO BID #10 tab 11/13/17 Benzonatate [Tessalon Perles] 100 mg PO TID 7 Days #21 cap 06/21/18 Loratadine [Claritin] 5 mg PO DAILY 5 Days #5 tab 06/21/18 Allergies Allergy/AdvReac Type Severity Reaction Status Date / Time morphine AdvReac Nausea & Verified 06/21/18 13:38 Vomiting Review of Systems ROS Statement: Those systems with pertinent positive or pertinent negative responses have been documented in the HPI. ROS Other: All systems not noted in ROS Statement are negative. Constitutional: Denies: fever, chills, night sweats Eyes: Denies: as per HPI ENT: Reports: throat pain. Denies: ear pain Respiratory: Reports: cough. Denies: dyspnea, wheezes, hemoptysis, stridor Cardiovascular: Denies: chest pain, dyspnea on exertion Endocrine: Denies: fatigue Gastrointestinal: Denies: abdominal pain, nausea, vomiting, diarrhea, constipation, hematemesis, melena Genitourinary: Denies: urgency, dysuria, frequency, hematuria Musculoskeletal: Denies: back pain Skin: Denies: rash, lesions Neurological: Denies: headache, weakness, numbness, paresthesias, confusion, abnormal gait, vertigo Past Medical History Past Medical History: Hyperlipidemia, Hypertension Additional Past Medical History / Comment(s): chronic back pain and hip pain History of Any Multi-Drug Resistant Organisms: None Reported Past Surgical History: No Surgical Hx Reported Past Anesthesia/Blood Transfusion Reactions: No Reported Reaction Past Psychological History: Depression Smoking Status: Former smoker Past Alcohol Use History: Occasional Past Drug Use History: None Reported - Past Family History Father Family Medical History: Hypertension General Exam - General Exam Comments Initial Comments: General: The patient is awake and alert, in no distress, and does not appear acutely ill. Eye: Pupils are equal, round and reactive to light, extra-ocular movements are intact. No nystagmus. There is normal conjunctiva bilaterally. No signs of icterus. Ears, nose, mouth and throat: There are moist mucous membranes and no oral lesions. Oropharynx is mildly erythematous, there is no tonsillar exudates enlargement or lesions. Uvula is midline. No evidence of peritonsillar abscess. No palpable cervical lymphadenopathy. Tympanic membranes within normal limits bilaterally, there is no effusions, perforations, retractions or bulging. Cone of light and malleus are present. Extraocular tooth canal exam within normal limits bilaterally. Patient does not show evidence of stridor, no muffled voice or hoarseness. No drooling. Neck: The neck is supple, there is no tenderness or JVD. Cardiovascular: There is a regular rate and rhythm. No murmur, rub or gallop is appreciated. Respiratory: Lungs are clear to auscultation, respirations are non-labored, breath sounds are equal. No wheezes, stridor, rales, or rhonchi. Gastrointestinal: Soft, non-distended, non-tender abdomen without masses or organomegaly noted. There is no rebound or guarding present. Bowel sounds are unremarkable. Musculoskeletal: Normal ROM, no tenderness. Strength 5/5. Sensation intact. Radial pulses equal bilaterally 2+. Neurological: A&O x 3. CN II-XII intact, There are no obvious motor or sensory deficits. Coordination appears grossly intact. Speech is normal. Skin: Skin is warm and dry and no rashes or lesions are noted. Psychiatric: Cooperative, appropriate mood & affect, normal judgment. Limitations: no limitations Course Vital Signs 06/21/18 13:36 Temperature 99.2 F Pulse Rate 72 Respiratory 18 Rate Blood Pressure 143/76 O2 Sat by Pulse 97 Oximetry Medical Decision Making - Medical Decision Making Lung exam unremarkable, lungs are clear to auscultation. Oropharynx was mildly erythematous. Chest x-ray negative for acute cardiopulmonary process. Influenza and rapid strep testing negative. At this time feel patient has a viral pharyngitis. Patient was given instruction on symptomatically treatment. Patient is given prescription for claritin for post nasal drip, Tessalon Perles for cough at night and patient was instructed to continue use of over-the -counter NyQuil or DayQuil as needed for congestion. He was instructed to follow-up with primary care provider in one to 2 days. Patient is agreeable to plan. He denies questions at this time. Case discussed with Dr. Ennis who agrees the impression and plan. Return parameters discussed at length the patient verbalizes understanding. Patient discharged in stable condition. - Lab Data Lab Results 06/21/18 06/21/18 Range/Units 14:00 14:00 Influenza Type A RNA Not Detected (Not Detectd) Influenza Type B (PCR) Not Detected (Not Detectd) Group A Strep Rapid Negative (Negative) Disposition Clinical Impression: Upper respiratory disease Disposition: HOME SELF-CARE Condition: Good Instructions: Upper Respiratory Infection (ED) Additional Instructions: Please use medication as discussed. Please follow-up with family doctor in the next 2 days.. Please return to emergency room if the symptoms increase or worsen or for any other concerns. Prescriptions: Benzonatate [Tessalon Perles] 100 mg PO TID 7 Days #21 cap Loratadine [Claritin] 5 mg PO DAILY 5 Days #5 tab Is patient prescribed a controlled substance at d/c from ED?: No Referrals: Eleni Rodrigues MD [Primary Care Provider] - 1-2 days Time of Disposition: 15:17
== END 2018-06-21 15:25 | disposition home or self-care (01) ==
LOC: EC 13:16
DX: J39.9 Disease of upper respiratory tract, unspecified (principal); E78.5 Hyperlipidemia, unspecified; F32.9 Major depressive disorder, single episode, unspecified; Z79.899 Other long term (current) drug therapy; Z88.5 Allergy status to narcotic agent; Z87.891 Personal history of nicotine dependence
CPT/HCPCS: 71046; 87081; 87430; 87502; 99283

== ENCOUNTER 2018-08-30 16:51 | Emergency (ER) | payer OTHER ==
[2018-08-30] MEDS ORDERED: KETOROLAC 30 MG/ML 1 ML VIAL IVP STA (17:31)
[2018-08-30] MEDS ORDERED: SODIUM CHLORIDE 0.9% 1,000 ML IV STA (17:31)
--- NOTE | 2018-08-30 17:47 | ED ---
Abdominal Pain HPI - General Chief Complaint: Abdominal Pain Stated Complaint: Rib Pain Time Seen by Provider: 08/30/18 17:03 Source: patient Mode of arrival: ambulatory Limitations: no limitations - History of Present Illness Initial Comments: 43-year-old male patient presents to the emergency department today for evaluation of right upper quadrant abdominal pain. Patient states that 2-3 days ago he started having some discomfort to the right upper abdomen that would radiate into the right shoulder. Patient states that last night the pain worsened. Patient states it hurts to take a deep breath or cough. States it hurts and he presses over the area. He denies any nausea or vomiting with this. States he has been constipated and has not had a bowel movement for the last 4 days. Denies any fever or chills. Denies any history of abdominal surgery. Patient denies any recent rash, shortness breath, chest pain, back pain , numbness, tingling, dizziness, weakness, hematuria, dysuria, urinary urgency, urinary frequency, headache, visual changes, or any other complaints. - Related Data Home Medications Medication Instructions Recorded Confirmed Simvastatin 20 mg PO HS 03/15/16 01/22/18 Citalopram Hydrobromide [CeleXA] 40 mg PO DAILY 09/10/17 01/22/18 Methocarbamol [Robaxin] 750 mg PO BID PRN 09/10/17 01/22/18 Previous Rx's Medication Instructions Recorded Verapamil Sr [Isoptin Sr] 120 mg PO DAILY tablet.er 09/30/17 Ibuprofen 800 mg PO Q6HR PRN #20 tablet 11/13/17 Methocarbamol [Robaxin-750] 750 mg PO Q6HR #16 tablet 11/13/17 predniSONE 20 mg PO BID #10 tab 11/13/17 Benzonatate [Tessalon Perles] 100 mg PO TID 7 Days #21 cap 06/21/18 Loratadine [Claritin] 5 mg PO DAILY 5 Days #5 tab 06/21/18 Famotidine [Pepcid] 20 mg PO DAILY #30 tablet 08/30/18 Allergies Allergy/AdvReac Type Severity Reaction Status Date / Time morphine AdvReac Nausea & Verified 08/30/18 17:32 Vomiting Review of Systems ROS Statement: Those systems with pertinent positive or pertinent negative responses have been documented in the HPI. ROS Other: All systems not noted in ROS Statement are negative. Past Medical History Past Medical History: Hyperlipidemia, Hypertension Additional Past Medical History / Comment(s): chronic back pain and hip pain History of Any Multi-Drug Resistant Organisms: None Reported Past Surgical History: No Surgical Hx Reported Past Anesthesia/Blood Transfusion Reactions: No Reported Reaction Past Psychological History: Depression Smoking Status: Former smoker Past Alcohol Use History: Occasional Past Drug Use History: None Reported - Past Family History Father Family Medical History: Hypertension General Exam Limitations: no limitations General appearance: alert, in no apparent distress, other (Physical well- developed, well-nourished adult male patient in no acute distress. Vital signs upon presentation are temperature 97.9F, pulse 53, respirations 16, blood pressure 138/82, pulse ox 97% on room air.) Eye exam: Present: normal appearance, PERRL, EOMI. Absent: scleral icterus, conjunctival injection, periorbital swelling ENT exam: Present: normal exam, normal oropharynx, mucous membranes moist Respiratory exam: Present: normal lung sounds bilaterally. Absent: respiratory distress, wheezes, rales, rhonchi, stridor Cardiovascular Exam: Present: regular rate, normal rhythm, normal heart sounds. Absent: systolic murmur, diastolic murmur, rubs, gallop, clicks GI/Abdominal exam: Present: soft, tenderness (Right upper quadrant tenderness, positive Landry sign), normal bowel sounds. Absent: distended, guarding, rebound, rigid Neurological exam: Present: alert, oriented X3, CN II-XII intact Psychiatric exam: Present: normal affect, normal mood Skin exam: Present: warm, dry, intact, normal color. Absent: rash Course Vital Signs 08/30/18 17:00 Temperature 97.9 F Pulse Rate 53 L Respiratory 16 Rate Blood Pressure 138/82 O2 Sat by Pulse 97 Oximetry Medical Decision Making - Medical Decision Making 43-year-old male patient presents to the emergency department today for evaluation of right upper quadrant pain and right shoulder pain. Physical examination did reveal right upper quadrant tenderness with positive Landry sign. Labs reviewed and were unremarkable. Ultrasound was obtained and showed no evidence for acute cholecystitis or other abnormalities. Upon reevaluation patient states he is feeling improved. Did discuss findings are consistent with possible gallbladder dysfunction. He'll be discharged home to follow-up with his primary care physician, he is instructed to discuss HIDA scan. He does have an appointment tomorrow he is urged to keep this appointment. Return parameters were discussed in detail. He verbalizes understanding and agrees with this plan. - Lab Data Result diagrams: 08/30/18 17:53 08/30/18 17:53 Lab Results 08/30/18 08/30/18 08/30/18 Range/Units 17:19 17:53 17:53 WBC 6.7 (3.8-10.6) k/uL RBC 5.61 (4.30-5.90) m/uL Hgb 16.2 (13.0-17.5) gm/dL Hct 48.0 (39.0-53.0) % MCV 85.5 (80.0-100.0) fL MCH 28.9 (25.0-35.0) pg MCHC 33.8 (31.0-37.0) g/dL RDW 13.1 (11.5-15.5) % Plt Count 295 (150-450) k/uL Neutrophils % 59 % Lymphocytes % 26 % Monocytes % 9 % Eosinophils % 3 % Basophils % 1 % Neutrophils # 3.9 (1.3-7.7) k/uL Lymphocytes # 1.7 (1.0-4.8) k/uL Monocytes # 0.6 (0-1.0) k/uL Eosinophils # 0.2 (0-0.7) k/uL Basophils # 0.1 (0-0.2) k/uL Sodium 144 (137-145) mmol/L Potassium 4.4 (3.5-5.1) mmol/L Chloride 104 (98-107) mmol/L Carbon Dioxide 30 (22-30) mmol/L Anion Gap 10 mmol/L BUN 8 L (9-20) mg/dL Creatinine 0.96 (0.66-1.25) mg/dL Est GFR (CKD-EPI)AfAm >90 (>60 ml/min/1.73 sqM) Est GFR (CKD-EPI)NonAf >90 (>60 ml/min/1.73 sqM) Glucose 122 H (74-99) mg/dL Calcium 10.1 (8.4-10.2) mg/dL Total Bilirubin 0.6 (0.2-1.3) mg/dL AST 23 (17-59) U/L ALT 41 (21-72) U/L Alkaline Phosphatase 111 (38-126) U/L Total Protein 8.1 (6.3-8.2) g/dL Albumin 4.6 (3.5-5.0) g/dL Amylase 56 (30-110) U/L Lipase 87 (23-300) U/L Urine Color Yellow Urine Appearance Clear (Clear) Urine pH 6.0 (5.0-8.0) Ur Specific [place] 1.019 (1.001-1.035) Urine Protein Trace H (Negative) Urine Glucose (UA) Negative (Negative) Urine Ketones Negative (Negative) Urine Blood Negative (Negative) Urine Nitrite Negative (Negative) Urine Bilirubin Negative (Negative) Urine Urobilinogen <2.0 (<2.0) mg/dL Ur Leukocyte Esterase Negative (Negative) - Radiology Data Radiology results: report reviewed, image reviewed Limited ultrasound of the abdomen is obtained of the right upper quadrant. Exam was reviewed in its entirety. Impression by Dr. Lugo shows no gallstones or dilated ducts. No free fluid. Disposition Clinical Impression: Abdominal pain Disposition: HOME SELF-CARE Condition: Good Instructions: Low Fat Diet (ED), Abdominal Pain (ED) Additional Instructions: Follow up with your primary care physician for recheck and possible referral for HIDA scan. Take medications as directed. Follow-up with your primary care physician for recheck in 1-2 days. Prescriptions: Famotidine [Pepcid] 20 mg PO DAILY #30 tablet Is patient prescribed a controlled substance at d/c from ED?: No Referrals: Batool Alfred MD [Primary Care Provider] - 1-2 days Time of Disposition: 18:41
[2018-08-30 18:09] LABS: Basophils # (A) 0.1 k/uL (0-0.2); Basophils % (A) 1 %; Eosinophils # (A) 0.2 k/uL (0-0.7); Eosinophils % (A) 3 %; HGB 16.2 gm/dL (13.0-17.5); Lymphocytes # (A) 1.7 k/uL (1.0-4.8); Lymphocytes % (A) 26 %; MCH 28.9 pg (25.0-35.0); MCHC 33.8 g/dL (31.0-37.0); MCV 85.5 fL (80.0-100.0); Monocytes # (A) 0.6 k/uL (0-1.0); Monocytes % (A) 9 %; Neutrophils # (A) 3.9 k/uL (1.3-7.7); Neutrophils % (A) 59 %; Platelet Count 295 k/uL (150-450); RBC 5.61 m/uL (4.30-5.90); RDW 13.1 % (11.5-15.5); WBC 6.7 k/uL (3.8-10.6)
[2018-08-30 18:18] LABS: ALT 41 U/L (21-72); AST 23 U/L (17-59); Albumin 4.6 g/dL (3.5-5.0); Alkaline Phosphatase 111 U/L (38-126); Amylase 56 U/L (30-110); Anion Gap 10 mmol/L; Blood Urea Nitrogen 8 mg/dL (9-20); Calcium 10.1 mg/dL (8.4-10.2); Carbon Dioxide 30 mmol/L (22-30); Chloride 104 mmol/L (98-107); Glucose 122 mg/dL (74-99); Lipase 87 U/L (23-300); Potassium 4.4 mmol/L (3.5-5.1); Sodium 144 mmol/L (137-145); Total Bilirubin 0.6 mg/dL (0.2-1.3); Total Protein 8.1 g/dL (6.3-8.2)
[2018-08-30 18:25] LABS: Appearance,Urine Clear (Clear); Bilirubin,Urine Negative (Negative); Blood,Urine Negative (Negative); Color,Urine Yellow; Glucose,Urine (UA) Negative (Negative); Ketones,Urine Negative (Negative); Leukocyte Esterase,Urine Negative (Negative); Nitrite,Urine Negative (Negative); Protein,Urine Trace (Negative); Specific Gravity,Urine 1.019 (1.001-1.035); Urobilinogen,Urine <2.0 mg/dL (<2.0)
--- NOTE | 2018-08-30 18:36 | US ---
EXAMINATION TYPE: US abdomen limited DATE OF EXAM: 08/30/2018 COMPARISON: CLINICAL HISTORY: Pain. RUQ pain EXAM MEASUREMENTS: Liver Length: 16.4 cm Gallbladder Wall: 0.2 cm CHD: 0.3 cm Right Kidney: 10.8 x 3.9 x 3.8 cm Pancreas: Appears echogenic in appearance. Tail obscured by overlying bowel gas Liver: Limited visualization due to overlying bowel gas. Scanned through ribs. Portions seen appea r wnl. Gallbladder: wnl, doesn't appear fully distended Evidence for sonographic Landry's sign: neg CBD: Obscured by overlying bowel gas CHD: wnl Right Kidney: No hydronephrosis or masses seen. Lower pole obscured by overlying bowel gas IMPRESSION: No gallstones or dilated ducts. No free fluid.
[2018-08-30 19:00] VITALS: BP 129/81; PULSE 75; RESP 18; TEMP 98
== END 2018-08-30 18:59 | disposition home or self-care (01) ==
LOC: EC 16:51
DX: R10.11 Right upper quadrant pain (principal); K59.00 Constipation, unspecified; E78.5 Hyperlipidemia, unspecified; F32.9 Major depressive disorder, single episode, unspecified; Z87.891 Personal history of nicotine dependence; Z79.899 Other long term (current) drug therapy; Z88.5 Allergy status to narcotic agent
CPT/HCPCS: 36415; 80053; 82150; 83690; 85025; 81003; 76705; 99284; 96374; 96361; J1885

== ENCOUNTER 2019-01-03 14:22 | Emergency (ER) | payer OTHER ==
[2019-01-03 14:50] VITALS: RESP 16
--- NOTE | 2019-01-03 15:45 | XR ---
EXAMINATION TYPE: XR wrist complete LT DATE OF EXAM: 01/03/2019 CLINICAL HISTORY: Left anterior wrist laceration TECHNIQUE: Frontal, lateral and oblique images of the left wrist are obtained. Scaphoid view was als o obtained. COMPARISON: None FINDINGS: There is no acute fracture/dislocation evident in the left wrist. The joint spaces in the left wrist appear within normal limits. Soft tissue laceration is seen overlying the for radial meta physis with no osseous laceration. No radiopaque foreign body. Mild overlying soft tissue swelling is seen. IMPRESSION: There is no acute fracture or dislocation in the left wrist. Soft tissue laceration with no osseous laceration or radiopaque foreign body.
[2019-01-03] MEDS ORDERED: TOPICAL SKIN ADHESIVE 1 EACH AMP TOPICAL ONE (16:00)
[2019-01-03] MEDS ORDERED: DIPH,PERTUS(ACELL)TETVAC-LF 0.5 ML VIAL IM ONE (16:00)
--- NOTE | 2019-01-03 16:35 | ED ---
General Adult HPI - General Chief complaint: Wound/Laceration Stated complaint: Laceration Time Seen by Provider: 01/03/19 15:18 Source: patient, RN notes reviewed Mode of arrival: ambulatory Limitations: no limitations - History of Present Illness Initial comments: 43-year-old male presents to the emergency department for left wrist laceration. Patient was trying to cut the tie on Legos when he accidentally slipped and cut his left wrist. States when he is controlled. States tetanus is up-to-date. Denies any other injuries.Patient has no other complaints at this time including shortness of breath, chest pain, abdominal pain, nausea or vomiting, headache, or visual changes. - Related Data Home Medications Medication Instructions Recorded Confirmed Simvastatin 20 mg PO HS 03/15/16 01/03/19 Citalopram Hydrobromide [CeleXA] 40 mg PO DAILY 09/10/17 01/03/19 Methocarbamol [Robaxin] 750 mg PO BID PRN 09/10/17 01/03/19 Previous Rx's Medication Instructions Recorded Verapamil Sr [Isoptin Sr] 120 mg PO DAILY tablet.er 09/30/17 Ibuprofen 800 mg PO Q6HR PRN #20 tablet 11/13/17 Methocarbamol [Robaxin-750] 750 mg PO Q6HR #16 tablet 11/13/17 predniSONE 20 mg PO BID #10 tab 11/13/17 Benzonatate [Tessalon Perles] 100 mg PO TID 7 Days #21 cap 06/21/18 Loratadine [Claritin] 5 mg PO DAILY 5 Days #5 tab 06/21/18 Famotidine [Pepcid] 20 mg PO DAILY #30 tablet 08/30/18 Allergies Allergy/AdvReac Type Severity Reaction Status Date / Time morphine AdvReac Nausea & Verified 01/03/19 14:50 Vomiting Review of Systems ROS Statement: Those systems with pertinent positive or pertinent negative responses have been documented in the HPI. ROS Other: All systems not noted in ROS Statement are negative. Past Medical History Past Medical History: Hyperlipidemia, Hypertension Additional Past Medical History / Comment(s): chronic back pain and hip pain History of Any Multi-Drug Resistant Organisms: None Reported Past Surgical History: No Surgical Hx Reported Past Anesthesia/Blood Transfusion Reactions: No Reported Reaction Past Psychological History: Depression Smoking Status: Former smoker Past Alcohol Use History: Occasional Past Drug Use History: None Reported - Past Family History Father Family Medical History: Hypertension General Exam Limitations: no limitations General appearance: alert, in no apparent distress Head exam: Present: atraumatic, normocephalic, normal inspection Eye exam: Present: normal appearance, PERRL, EOMI. Absent: scleral icterus, conjunctival injection, periorbital swelling ENT exam: Present: normal exam, mucous membranes moist Neck exam: Present: normal inspection, full ROM. Absent: tenderness, meningismus, lymphadenopathy Respiratory exam: Present: normal lung sounds bilaterally. Absent: respiratory distress, wheezes, rales, rhonchi, stridor Cardiovascular Exam: Present: regular rate, normal rhythm, normal heart sounds. Absent: systolic murmur, diastolic murmur, rubs, gallop, clicks Extremities exam: Present: normal inspection, full ROM (Full range motion of all digits in the left hand including the fifth digit. Full range of motion of the wrist.), normal capillary refill (Capillary refill is seconds, radial pulse 2+ in the left upper extremity), other (1 cm superficial laceration noted over the ulnar aspect of the left wrist). Absent: tenderness, pedal edema, joint swelling, calf tenderness Neurological exam: Present: alert, oriented X3, CN II-XII intact Psychiatric exam: Present: normal affect, normal mood Course Vital Signs 01/03/19 14:48 Temperature 98.1 F Pulse Rate 81 Respiratory 16 Rate Blood Pressure 148/90 O2 Sat by Pulse 96 Oximetry Procedures - Laceration Laceration #1 Consent Obtained: verbal consent Indication: laceration Site: other (Left wrist) Size (cm): 1 Description: linear Depth: simple, single layer Type of Sutures: other (exofin) Patient Tolerated Procedure: well, no complications Medical Decision Making - Medical Decision Making 43-year-old male presents for laceration to the left wrist. Patient accidentally cut his wrist when he was cutting a tie. On exam this is superficial. 1 cm in length noted over the left ulnar wrist. X-ray was negative. No evidence of foreign body. Bleeding controlled. This was easily glued without complication as patient did have some minimal bleeding into the glue. Patient will monitor for signs of infection and follow up with primary care if he has any worsening symptoms or return immediately here to the ER. Disposition Clinical Impression: Laceration Disposition: HOME SELF-CARE Condition: Good Instructions (If sedation given, give patient instructions): Laceration (ED), Skin Adhesive Care (ED) Additional Instructions: Glue will fall off on its own. Do not scrub added. Monitor for signs of infection such as spreading or streaking redness or return if these occur. Return if you have any other concerns. Otherwise follow-up with primary care in 1-2 days. Is patient prescribed a controlled substance at d/c from ED?: No Referrals: Batool Alfred MD [Primary Care Provider] - 1-2 days Time of Disposition: 16:34
[2019-01-03 16:41] VITALS: BP 142/82; PULSE 78; TEMP 98.2
== END 2019-01-03 16:40 | disposition home or self-care (01) ==
LOC: EC 14:22
DX: S61.512A Laceration without foreign body of left wrist, initial encounter (principal); E78.5 Hyperlipidemia, unspecified; I10 Essential (primary) hypertension; F32.9 Major depressive disorder, single episode, unspecified; Z87.891 Personal history of nicotine dependence; Z79.899 Other long term (current) drug therapy; Z88.5 Allergy status to narcotic agent; Z53.29 Procedure and treatment not carried out because of patient's decision for other reasons; W26.0XXA Contact with knife, initial encounter
CPT/HCPCS: 12001; 99283

== ENCOUNTER 2019-03-04 19:01 | Emergency (ER) | payer OTHER ==
[2019-03-04] MEDS ORDERED: LIDOCAINE 1%-EPI 1:100,000 20 ML VIAL SQ ONE (20:01)
--- NOTE | 2019-03-04 20:49 | ED ---
General Adult HPI - General Chief complaint: Skin/Abscess/Foreign Body Stated complaint: Abscess Time Seen by Provider: 03/04/19 19:43 Source: patient Mode of arrival: ambulatory Limitations: no limitations - History of Present Illness Initial comments: Patient is a 44-year-old male presents with chief complaint of an abscess in his left ankle. He says this is been going on for about 3 days. He states that initially looked like a pimple he was able to express preoperative material from it. Since that has gotten larger in size more painful. Patient cannot identify inciting incident. He states he has not had any previous episodes of the same. In no aggravating or alleviating factors. Patient states that it is painful and hurts when he moves around especially at night when he is trying to sleep. He denies any fever, chills, nausea or vomiting. - Related Data Home Medications Medication Instructions Recorded Confirmed Aspirin [[place] Aspirin EC] 81 mg PO DAILY 03/04/19 03/04/19 Atorvastatin [Lipitor] 20 mg PO HS 03/04/19 03/04/19 Previous Rx's Medication Instructions Recorded Verapamil Sr [Isoptin Sr] 120 mg PO DAILY tablet.er 09/30/17 Famotidine [Pepcid] 20 mg PO DAILY #30 tablet 08/30/18 Sulfamethox-Tmp 800-160Mg [Bactrim 1 tab PO Q12HR #6 tab 03/04/19 DS 800-160 mg] Allergies Allergy/AdvReac Type Severity Reaction Status Date / Time morphine AdvReac Nausea & Verified 03/04/19 20:28 Vomiting Review of Systems ROS Statement: Those systems with pertinent positive or pertinent negative responses have been documented in the HPI. ROS Other: All systems not noted in ROS Statement are negative. Constitutional: Denies: fever, chills Skin: Reports: lesions Past Medical History Past Medical History: Hyperlipidemia, Hypertension Additional Past Medical History / Comment(s): chronic back pain and hip pain History of Any Multi-Drug Resistant Organisms: None Reported Past Surgical History: No Surgical Hx Reported Past Anesthesia/Blood Transfusion Reactions: No Reported Reaction Past Psychological History: Depression Smoking Status: Former smoker Past Alcohol Use History: Occasional Past Drug Use History: None Reported - Past Family History Father Family Medical History: Hypertension General Exam Limitations: no limitations General appearance: alert, in no apparent distress Head exam: Present: atraumatic, normocephalic Eye exam: Present: normal appearance ENT exam: Present: normal exam Neck exam: Present: normal inspection Respiratory exam: Present: normal lung sounds bilaterally. Absent: respiratory distress, wheezes Cardiovascular Exam: Present: regular rate, normal rhythm GI/Abdominal exam: Present: soft. Absent: distended, tenderness Rectal exam: Present: deferred exam: Present: normal inspection Extremities exam: Present: normal inspection Back exam: Present: normal inspection Neurological exam: Present: alert, oriented X3 Psychiatric exam: Present: normal affect, normal mood Skin exam: Present: warm, dry, intact, other (Patient a small abscess in the left axilla measuring 1.5 x 1.5 cm.) Course Vital Signs 03/04/19 19:27 Temperature 98.4 F Pulse Rate 79 Respiratory 19 Rate Blood Pressure 136/79 O2 Sat by Pulse 96 Oximetry Procedures - Incision & Drainage Consent Obtained: verbal consent Indication: Abscess Site: upper extremity Size (cm): 2 Anesthetic Used: lidocaine 1%, with epi Sterile Field Used?: No Scalpel Used: #11 Needle Aspiration Performed?: No Irrigation Performed?: Yes I&D Drainage Obtained: Pus, Blood Packing: Plain Culture Obtained?: No Patient Tolerated Procedure: well, no complications Medical Decision Making - Medical Decision Making Patient presents with chief complaint of an abscess in the left axilla. On initial evaluation, vitals are stable, patient is in no acute distress. Abscess was drained. Procedure note. Patient will be placed on Bactrim for 3 days. He is instructed to follow up with primary care 1-2 days, return to the ED if symptoms worsen or change. Disposition Clinical Impression: Abscess, Cellulitis Disposition: HOME SELF-CARE Condition: Good Instructions (If sedation given, give patient instructions): Abscess Incision and Drainage (ED) Is patient prescribed a controlled substance at d/c from ED?: No Referrals: Batool Alfred MD [Primary Care Provider] - 1-2 days
[2019-03-04 21:03] VITALS: BP 128/86; PULSE 73; RESP 18; TEMP 98
== END 2019-03-04 21:05 | disposition home or self-care (01) ==
LOC: EC 19:01
DX: L02.412 Cutaneous abscess of left axilla (principal); L03.90 Cellulitis, unspecified; I10 Essential (primary) hypertension; E78.5 Hyperlipidemia, unspecified; Z79.82 Long term (current) use of aspirin; Z79.899 Other long term (current) drug therapy; Z88.5 Allergy status to narcotic agent; Z87.891 Personal history of nicotine dependence
CPT/HCPCS: 10060; 99283

== ENCOUNTER 2019-06-22 13:22 | Emergency (ER) | payer OTHER ==
[2019-06-22 13:33] VITALS: BP 119/74; PULSE 60; RESP 18; TEMP 98
[2019-06-22] MEDS ORDERED: KETOROLAC 60 MG/2 ML VIAL IM STA (14:22)
--- NOTE | 2019-06-22 14:23 | ED ---
Back Pain HPI - General Chief Complaint: Back Pain/Injury Stated Complaint: Back pain Time Seen by Provider: 06/22/19 13:43 Source: patient Limitations: no limitations - History of Present Illness Initial Comments: Patient is a 44-year-old male presenting to emergency Department with complaints of left sided lumbar pain that has been increasing over the last few days. Patient states he has chronic low back pain and sometimes has flareups. Patient was going to a chiropractor which did improve his symptoms however his benefits ran out and he can no longer see him. She denies any falls or trauma to his back. Patient states he is just been working a lot of hours. Patient denies fever, chills, numbness and tingling into his extremities, radiation of pain, trouble with urination. Patient has no other complaints at this time. Patient states he has not tried anything [id number] for his pain. Patient has no other complaints at this time. Upon arrival to the ER, vital signs are stable. - Related Data Home Medications Medication Instructions Recorded Confirmed Aspirin [[place] Aspirin EC] 81 mg PO DAILY 03/04/19 03/04/19 Atorvastatin [Lipitor] 20 mg PO HS 03/04/19 03/04/19 Previous Rx's Medication Instructions Recorded Verapamil Sr [Isoptin Sr] 120 mg PO DAILY tablet.er 09/30/17 Famotidine [Pepcid] 20 mg PO DAILY #30 tablet 08/30/18 Sulfamethox-Tmp 800-160Mg [Bactrim 1 tab PO Q12HR #6 tab 03/04/19 DS 800-160 mg] methylPREDNISolone [Medrol Dose 4 mg PO DIRECTED #1 pack 06/22/19 Pack] Allergies Allergy/AdvReac Type Severity Reaction Status Date / Time morphine AdvReac Nausea & Verified 03/04/19 20:28 Vomiting Review of Systems ROS Statement: Those systems with pertinent positive or pertinent negative responses have been documented in the HPI. ROS Other: All systems not noted in ROS Statement are negative. Past Medical History Past Medical History: Hyperlipidemia, Hypertension Additional Past Medical History / Comment(s): chronic back pain and hip pain History of Any Multi-Drug Resistant Organisms: None Reported Past Surgical History: No Surgical Hx Reported Past Anesthesia/Blood Transfusion Reactions: No Reported Reaction Past Psychological History: Depression Smoking Status: Former smoker Past Alcohol Use History: None Reported, Occasional Past Drug Use History: None Reported - Past Family History Father Family Medical History: Hypertension General Exam - General Exam Comments Initial Comments: GENERAL: Well-appearing, well-nourished and in no acute distress. HEAD: Atraumatic, normocephalic. EYES: Pupils equal round and reactive to light, extraocular movements intact, sclera anicteric, conjunctiva are normal. ENT: Moist mucous membranes. NECK: Normal range of motion, supple without lymphadenopathy or JVD. LUNGS: Breath sounds clear to auscultation bilaterally and equal. No wheezes rales or rhonchi. HEART: Regular rate and rhythm without murmurs, rubs or gallops. ABDOMEN: Soft, nontender, normoactive bowel sounds. No guarding, no rebound. No masses appreciated. EXTREMITIES: Normal range of motion, no pitting or edema. No clubbing or cyanosis. Pain with palpation of bilateral lumbar paraspinals. Pain with trunk flexion and extension. Sensation is equal in bilateral lower extremities. Strength is 5 out of 5 upper and lower extremities. NEUROLOGICAL: Cranial nerves II through XII grossly intact. Normal speech, normal gait. PSYCH: Normal mood, normal affect. SKIN: Warm, Dry, normal turgor, no rashes or lesions noted. Limitations: no limitations Course Vital Signs 06/22/19 13:30 Temperature 98.0 F Pulse Rate 60 Respiratory 18 Rate Blood Pressure 119/74 O2 Sat by Pulse 100 Oximetry Medical Decision Making - Medical Decision Making Patient is a 44-year-old male presenting with a lumbar strain. Patient has chronic low back issues, no new trauma or injury. There is no red flag symptoms. Patient will be given a dose of Toradol here for pain relief as well as started on steroids. Patient will continue with Tylenol as needed for pain relief. Patient will follow up with PCP if symptoms persist. Patient is stable for discharge at this time and he is in agreement this plan of care. Return parameters were discussed with the patient and he verbalized understanding. Case discussed with Dr. Davis. Disposition Clinical Impression: Chronic low back pain Disposition: HOME SELF-CARE Condition: Stable Instructions (If sedation given, give patient instructions): Chronic Back Pain (DC) Additional Instructions: Please return to the Emergency Department if symptoms worsen or any other concerns. Take steroids as discussed. Continue to use Tylenol for pain relief. Follow-up with PCP if symptoms persist after one to 2 weeks. 2 gentle stretching as discussed as well as heat to the area. Prescriptions: methylPREDNISolone [Medrol Dose Pack] 4 mg PO DIRECTED #1 pack Is patient prescribed a controlled substance at d/c from ED?: No Referrals: Batool Alfred MD [Primary Care Provider] - 1-2 days
== END 2019-06-22 14:35 | disposition home or self-care (01) ==
LOC: EC 13:22
DX: G89.29 Other chronic pain (principal); M54.5 Low back pain; E78.5 Hyperlipidemia, unspecified; I10 Essential (primary) hypertension; Z79.82 Long term (current) use of aspirin; Z79.899 Other long term (current) drug therapy; Z88.5 Allergy status to narcotic agent; Z87.891 Personal history of nicotine dependence
CPT/HCPCS: 99283; 96372; J1885

== ENCOUNTER 2019-08-06 05:46 | Emergency (ER) | payer OTHER ==
[2019-08-06 05:56] VITALS: BP 140/81; PULSE 92; RESP 18; TEMP 97.5
[2019-08-06] MEDS ORDERED: KETOROLAC 60 MG/2 ML VIAL IM STA (06:12)
[2019-08-06] MEDS ORDERED: ONDANSETRON 4 MG ODT STARTER PACK 2 TAB BTL PO STA (06:12)
[2019-08-06] MEDS ORDERED: ORPHENADRINE 30 MG/ML 2 ML VIAL IM STA (06:12)
[2019-08-06] MEDS ORDERED: DEXAMETHASONE 4 MG TAB PO STA (06:12)
--- NOTE | 2019-08-06 06:22 | ED ---
General Adult HPI - General Chief complaint: Headache Stated complaint: Headache/Nausea Time Seen by Provider: 08/06/19 06:01 Source: patient, RN notes reviewed, old records reviewed Mode of arrival: ambulatory Limitations: no limitations - History of Present Illness Initial comments: this patient's a 44-year-old male he presents today for evaluation for congestion, runny nose, tension headache from multiple muscles neck. Patient reports that he's been trying to drink plenty of water to help with his symptoms. He reports he is exposed to sick children a few days ago prior to this and his symptoms starting. He states that he feels better when he is outside in the cool air going since having stuffy is has more congestion. He reports he took NyQuil a few Days ago. Patient states he's had no known fevers or chills. Patient states that he is also out of his muscle relaxer medication and states that he has a slipped disc in his neck. He reports he normally follows with a chiropractor but has not been able to until after the holidays.Patient denies any recent fever, chills, shortness of breath, chest pain, back pain, abdominal pain, nausea vomiting, numbness or tingling, dysuria or hematuria, constipation or diarrhea, or any other current symptoms - Related Data Home Medications Medication Instructions Recorded Confirmed Atorvastatin [Lipitor] 20 mg PO HS 03/04/19 08/06/19 Famotidine [Pepcid] 20 mg PO DAILY PRN 08/06/19 08/06/19 Previous Rx's Medication Instructions Recorded Verapamil Sr [Isoptin Sr] 120 mg PO DAILY tablet.er 09/30/17 Cyclobenzaprine [Flexeril] 10 mg PO TID #12 tab 08/06/19 Ibuprofen 600 mg PO TID #20 tablet 08/06/19 Ondansetron Odt [Zofran Odt] 4 mg PO Q8HR PRN #12 tab 08/06/19 Allergies Allergy/AdvReac Type Severity Reaction Status Date / Time morphine AdvReac Nausea & Verified 08/06/19 05:56 Vomiting Review of Systems ROS Statement: Those systems with pertinent positive or pertinent negative responses have been documented in the HPI. ROS Other: All systems not noted in ROS Statement are negative. Past Medical History Past Medical History: Hyperlipidemia, Hypertension Additional Past Medical History / Comment(s): chronic back pain and hip pain History of Any Multi-Drug Resistant Organisms: None Reported Past Surgical History: No Surgical Hx Reported Past Anesthesia/Blood Transfusion Reactions: No Reported Reaction Past Psychological History: Depression Smoking Status: Former smoker Past Alcohol Use History: None Reported, Occasional Past Drug Use History: None Reported - Past Family History Father Family Medical History: Hypertension General Exam - General Exam Comments Initial Comments: 44 year old male, no distress. Limitations: no limitations General appearance: alert, in no apparent distress Head exam: Present: atraumatic, normocephalic, normal inspection Eye exam: Present: normal appearance, PERRL, EOMI. Absent: scleral icterus, conjunctival injection, periorbital swelling ENT exam: Present: normal exam, mucous membranes moist, other (sinus congestion.) Neck exam: Present: normal inspection, other (paraspinal spasm and tenderness). Absent: tenderness, meningismus, lymphadenopathy Respiratory exam: Present: normal lung sounds bilaterally. Absent: respiratory distress, wheezes, rales, rhonchi, stridor Cardiovascular Exam: Present: regular rate, normal rhythm, normal heart sounds. Absent: systolic murmur, diastolic murmur, rubs, gallop, clicks GI/Abdominal exam: Present: soft, normal bowel sounds. Absent: distended, tenderness, guarding, rebound, rigid Extremities exam: Present: normal inspection, full ROM, normal capillary refill. Absent: tenderness, pedal edema, joint swelling, calf tenderness Back exam: Present: normal inspection Neurological exam: Present: alert, oriented X3, CN II-XII intact Psychiatric exam: Present: normal affect, normal mood Skin exam: Present: warm, dry, intact, normal color. Absent: rash Course Vital Signs 08/06/19 05:49 Temperature 97.5 F L Pulse Rate 92 Respiratory 18 Rate Blood Pressure 140/81 O2 Sat by Pulse 99 Oximetry Medical Decision Making - Medical Decision Making 44-year-old male presents today for attention today, also upper respiratory congestion fatigue. He was has exposed to children for viral illness. Isn't having symptoms for 3 days. No fever at this time. Nonproductive cough. I discussed this time Patient can be treated with IM medications for his headache, has been drinking water. I discussed also decongestant medication and is here for a temperature properties. I discussed the Patient can follow-up with his primary care doctor symptoms persist and always return for reevaluation. Disposition Clinical Impression: Upper respiratory infection, viral, Chronic tension headache Disposition: HOME SELF-CARE Condition: Good Instructions (If sedation given, give patient instructions): Acute Headache (ED), Cold Symptoms (ED) Additional Instructions: Patient advised to follow-up with a primary care physician of symptoms continue to persist. Take the nausea medicine and anti-inflammatory medicine as prescribed. Follow-up with your primary care doctor return to emergency department if any alarming signs or symptoms occur. Prescriptions: Cyclobenzaprine [Flexeril] 10 mg PO TID #12 tab Ibuprofen 600 mg PO TID #20 tablet Ondansetron Odt [Zofran Odt] 4 mg PO Q8HR PRN #12 tab PRN Reason: Nausea Is patient prescribed a controlled substance at d/c from ED?: No Referrals: Batool Alfred MD [Primary Care Provider] - 1-2 days Time of Disposition: 06:20
== END 2019-08-06 06:48 | disposition home or self-care (01) ==
LOC: EC 05:46
DX: J06.9 Acute upper respiratory infection, unspecified (principal); G44.229 Chronic tension-type headache, not intractable; E78.5 Hyperlipidemia, unspecified; I10 Essential (primary) hypertension; Z79.899 Other long term (current) drug therapy; Z88.5 Allergy status to narcotic agent; Z87.891 Personal history of nicotine dependence
CPT/HCPCS: 99284; 96372 ×2; J8540; J2360; J1885; S0119

== ENCOUNTER 2019-08-24 01:37 | Emergency (ER) | payer OTHER ==
[2019-08-24 01:43] VITALS: BP 155/88; PULSE 68; RESP 20; TEMP 97.9
[2019-08-24] MEDS ORDERED: PROPARACAINE 0.5% OPHTH DROPS 15 ML BTL LEFT EYE STA (01:48)
[2019-08-24] MEDS ORDERED: TOBRAMYCIN 0.3% OPHTH OINT 3.5 GM TUBE LEFT EYE STA (02:01)
--- NOTE | 2019-08-24 02:03 | ED ---
Eye Problem HPI - General Chief complaint: Eye Problems Stated complaint: Eye Problem Time Seen by Provider: 08/24/19 01:48 Source: patient Mode of arrival: ambulatory Limitations: no limitations - History of Present Illness Initial comments: 44-year-old male patient presents to the emergency department today for evaluation of left eye pain and discomfort. Patient states he woke from sleep a couple of hours ago with symptoms. Patient states he was rubbing his eye and flushing with water without relief. States he could not see anything in the eye. He denies any new pets or exposure to new substances he may be ALLERGIC to. Denies any drainage from the eye. Denies fever or chills. Denies any blurry or double vision. - Related Data Home Medications Medication Instructions Recorded Confirmed Atorvastatin [Lipitor] 20 mg PO HS 03/04/19 08/06/19 Famotidine [Pepcid] 20 mg PO DAILY PRN 08/06/19 08/06/19 Previous Rx's Medication Instructions Recorded Verapamil Sr [Isoptin Sr] 120 mg PO DAILY tablet.er 09/30/17 Cyclobenzaprine [Flexeril] 10 mg PO TID #12 tab 08/06/19 Ibuprofen 600 mg PO TID #20 tablet 08/06/19 Ondansetron Odt [Zofran Odt] 4 mg PO Q8HR PRN #12 tab 08/06/19 Allergies Allergy/AdvReac Type Severity Reaction Status Date / Time morphine AdvReac Nausea & Verified 08/24/19 01:44 Vomiting Review of Systems ROS Statement: Those systems with pertinent positive or pertinent negative responses have been documented in the HPI. ROS Other: All systems not noted in ROS Statement are negative. Past Medical History Past Medical History: Hyperlipidemia, Hypertension Additional Past Medical History / Comment(s): chronic back pain and hip pain History of Any Multi-Drug Resistant Organisms: None Reported Past Surgical History: No Surgical Hx Reported Past Anesthesia/Blood Transfusion Reactions: No Reported Reaction Past Psychological History: Depression Smoking Status: Former smoker Past Alcohol Use History: None Reported, Occasional Past Drug Use History: None Reported - Past Family History Father Family Medical History: Hypertension General Exam Limitations: no limitations General appearance: alert, in no apparent distress, other (This is a well- developed, well-nourished tall male patient in no acute distress. Vital signs upon presentation are temperature 97.9F, pulse 68, respirations 20, blood pressure 155/88, pulse ox 99% on room air.) Eye exam: Present: PERRL, EOMI, conjunctival injection (Left), other (There is mild left conjunctival injection. Occasional clear tearing. No evidence for foreign body with lid eversion. Fluorescein stain with Wood's lamp examination was performed and did reveal corneal abrasion at 4:00.). Absent: scleral icterus, periorbital swelling ENT exam: Present: normal exam, normal oropharynx, mucous membranes moist Respiratory exam: Present: normal lung sounds bilaterally. Absent: respiratory distress, wheezes, rales, rhonchi, stridor Cardiovascular Exam: Present: regular rate, normal rhythm, normal heart sounds. Absent: systolic murmur, diastolic murmur, rubs, gallop, clicks Neurological exam: Present: alert, oriented X3, CN II-XII intact Psychiatric exam: Present: normal affect, normal mood Skin exam: Present: warm, dry, intact, normal color. Absent: rash Course Vital Signs 08/24/19 01:42 Temperature 97.9 F Pulse Rate 68 Respiratory 20 Rate Blood Pressure 155/88 O2 Sat by Pulse 99 Oximetry Medical Decision Making - Medical Decision Making 44-year-old male patient presents to the emergency department today for evalua tion of left eye pain and discomfort. Physical examination did reveal left- sided conjunctival injection. Did inspect the eye and fever fluids, no evidence for foreign body. Fluorescein stain with Wood's lamp examination was performed and did reveal corneal abrasion. He'll be treated with tobramycin ophthalmic ointment. He did have improvement of symptoms with instillation of proparacaine. He is instructed take her Profen as needed. He is instructed to follow-up with ophthalmology if his symptoms are not improved over the next 1-2 days. Instructed to follow-up with his primary care physician for recheck in 1- 2 days. Return parameters were discussed in detail. He verbalizes understanding and agrees with this plan. Disposition Clinical Impression: Left corneal abrasion Disposition: HOME SELF-CARE Condition: Good Instructions (If sedation given, give patient instructions): Tobramycin (Into the eye), Corneal Abrasion (ED) Additional Instructions: Use tobramycin ointment, 1 cm ribbon to the left lower eyelid 4 times daily while awake. Follow-up with ophthalmology for further evaluation her symptoms are not improved over the next 1-2 days. Return to the emergency department immediately for any new, worsening, or concerning symptoms. Is patient prescribed a controlled substance at d/c from ED?: No Referrals: Batool Alfred MD [Primary Care Provider] - 1-2 days Leonard Jimenez MD [STAFF PHYSICIAN] - 1-2 days Time of Disposition: 02:03
== END 2019-08-24 02:10 | disposition home or self-care (01) ==
LOC: EC 01:37
DX: S05.02XA Injury of conjunctiva and corneal abrasion without foreign body, left eye, initial encounter (principal); I10 Essential (primary) hypertension; E78.5 Hyperlipidemia, unspecified; Z79.899 Other long term (current) drug therapy; Z88.5 Allergy status to narcotic agent; Z87.891 Personal history of nicotine dependence; X58.XXXA Exposure to other specified factors, initial encounter
CPT/HCPCS: 99283

== ENCOUNTER 2020-01-31 21:15 | Emergency (ER) | payer OTHER ==
--- NOTE | 2020-01-31 22:04 | ED ---
Abdominal Pain HPI - General Chief Complaint: Abdominal Pain Stated Complaint: Abdominal Pain Time Seen by Provider: 01/31/20 21:48 Source: patient Mode of arrival: ambulatory Limitations: no limitations - History of Present Illness Initial Comments: This patient is a 45-year-old man who presents to be evaluated for approximately one week of right upper quadrant pain. The patient states that he had been in to see his primary physician who felt that he may be manifesting symptoms related to his gallbladder. The patient also states that it's possible he pulled a muscle in his abdominal wall. Patient has not had accompanying nausea or vomiting. No change in bowel movements. No urinary symptoms. There is no scrotal mass or testicular pain. MD Complaint: abdominal pain Onset/Timin -: week(s) Location: RUQ Radiation: none Migration to: no migration Severity: moderate Quality: aching Consistency: constant Improves With: nothing Worsens With: other (Palpation ) Associated Symptoms: denies other symptoms - Related Data Home Medications Medication Instructions Recorded Confirmed Atorvastatin [Lipitor] 20 mg PO HS 03/04/19 08/06/19 Famotidine [Pepcid] 20 mg PO DAILY PRN 08/06/19 08/06/19 Previous Rx's Medication Instructions Recorded Verapamil Sr [Isoptin Sr] 120 mg PO DAILY tablet.er 09/30/17 Cyclobenzaprine [Flexeril] 10 mg PO TID #12 tab 08/06/19 Ibuprofen 600 mg PO TID #20 tablet 08/06/19 Ondansetron Odt [Zofran Odt] 4 mg PO Q8HR PRN #12 tab 08/06/19 Allergies Allergy/AdvReac Type Severity Reaction Status Date / Time morphine AdvReac Nausea & Verified 08/24/19 01:44 Vomiting Review of Systems ROS Statement: Those systems with pertinent positive or pertinent negative responses have been documented in the HPI. ROS Other: All systems not noted in ROS Statement are negative. Past Medical History Past Medical History: Hyperlipidemia, Hypertension Additional Past Medical History / Comment(s): chronic back pain and hip pain History of Any Multi-Drug Resistant Organisms: None Reported Past Surgical History: No Surgical Hx Reported Past Anesthesia/Blood Transfusion Reactions: No Reported Reaction Past Psychological History: Depression Smoking Status: Former smoker Past Alcohol Use History: None Reported, Occasional Past Drug Use History: None Reported - Past Family History Father Family Medical History: Hypertension General Exam Limitations: no limitations General appearance: alert, in no apparent distress Head exam: Present: atraumatic, normocephalic Eye exam: Present: normal appearance. Absent: scleral icterus, conjunctival injection Respiratory exam: Present: wheezes (Trace expiratory wheeze). Absent: respiratory distress, rales, rhonchi, stridor, chest wall tenderness Cardiovascular Exam: Present: regular rate, normal rhythm, normal heart sounds. Absent: systolic murmur, diastolic murmur, rubs, gallop GI/Abdominal exam: Present: soft. Absent: distended, tenderness, guarding, rebound, rigid, mass Extremities exam: Present: normal inspection, normal capillary refill. Absent: pedal edema, calf tenderness Back exam: Present: normal inspection. Absent: CVA tenderness (R), CVA tenderness (L) Neurological exam: Present: alert Skin exam: Present: warm, dry, intact, normal color. Absent: rash Course Vital Signs 01/31/20 21:33 Temperature 97.7 F Pulse Rate 77 Respiratory 17 Rate Blood Pressure 132/85 O2 Sat by Pulse 97 Oximetry Medical Decision Making - Lab Data Result diagrams: 01/31/20 22:10 01/31/20 22:10 Lab Results 01/31/20 01/31/20 01/31/20 Range/Units 22:10 22:10 22:10 WBC 7.0 (3.8-10.6) k/uL RBC 5.20 (4.30-5.90) m/uL Hgb 15.4 (13.0-17.5) gm/dL Hct 45.1 (39.0-53.0) % MCV 86.8 (80.0-100.0) fL MCH 29.6 (25.0-35.0) pg MCHC 34.1 (31.0-37.0) g/dL RDW 12.8 (11.5-15.5) % Plt Count 280 (150-450) k/uL Neutrophils % 61 % Lymphocytes % 24 % Monocytes % 9 % Eosinophils % 3 % Basophils % 1 % Neutrophils # 4.3 (1.3-7.7) k/uL Lymphocytes # 1.7 (1.0-4.8) k/uL Monocytes # 0.6 (0-1.0) k/uL Eosinophils # 0.2 (0-0.7) k/uL Basophils # 0.1 (0-0.2) k/uL Sodium 140 (137-145) mmol/L Potassium 3.8 (3.5-5.1) mmol/L Chloride 106 (98-107) mmol/L Carbon Dioxide 25 (22-30) mmol/L Anion Gap 9 mmol/L BUN 10 (9-20) mg/dL Creatinine 1.05 (0.66-1.25) mg/dL Est GFR (CKD-EPI)AfAm >90 (>60 ml/min/1.73 sqM) Est GFR (CKD-EPI)NonAf 86 (>60 ml/min/1.73 sqM) Glucose 125 H (74-99) mg/dL Calcium 9.1 (8.4-10.2) mg/dL Total Bilirubin 0.5 (0.2-1.3) mg/dL AST 28 (17-59) U/L ALT 30 (4-49) U/L Alkaline Phosphatase 91 (38-126) U/L Total Protein 7.7 (6.3-8.2) g/dL Albumin 4.4 (3.5-5.0) g/dL Amylase 48 (30-110) U/L Lipase 117 (23-300) U/L Urine Color Yellow Urine Appearance Clear (Clear) Urine pH 6.5 (5.0-8.0) Ur Specific Kirby 1.019 (1.001-1.035) Urine Protein Negative (Negative) Urine Glucose (UA) Negative (Negative) Urine Ketones Negative (Negative) Urine Blood Negative (Negative) Urine Nitrite Negative (Negative) Urine Bilirubin Negative (Negative) Urine Urobilinogen <2.0 (<2.0) mg/dL Ur Leukocyte Esterase Negative (Negative) Disposition Clinical Impression: Abdominal pain Disposition: HOME SELF-CARE Condition: Good Instructions (If sedation given, give patient instructions): Abdominal Pain (ED) Is patient prescribed a controlled substance at d/c from ED?: No Referrals: Batool Alfred MD [Primary Care Provider] - 1-2 days
[2020-01-31 22:22] LABS: Appearance,Urine Clear (Clear); Basophils # (A) 0.1 k/uL (0-0.2); Basophils % (A) 1 %; Bilirubin,Urine Negative (Negative); Blood,Urine Negative (Negative); Color,Urine Yellow; Eosinophils # (A) 0.2 k/uL (0-0.7); Eosinophils % (A) 3 %; Glucose,Urine (UA) Negative (Negative); HCT 45.1 % (39.0-53.0); HGB 15.4 gm/dL (13.0-17.5); Ketones,Urine Negative (Negative); Leukocyte Esterase,Urine Negative (Negative); Lymphocytes # (A) 1.7 k/uL (1.0-4.8); Lymphocytes % (A) 24 %; MCH 29.6 pg (25.0-35.0); MCHC 34.1 g/dL (31.0-37.0); MCV 86.8 fL (80.0-100.0); Mean Platelet Volume 7.2; Monocytes # (A) 0.6 k/uL (0-1.0); Monocytes % (A) 9 %; Neutrophils # (A) 4.3 k/uL (1.3-7.7); Neutrophils % (A) 61 %; Nitrite,Urine Negative (Negative); PH, Urine 6.5 (5.0-8.0); Platelet Count 280 k/uL (150-450); Protein,Urine Negative (Negative); RDW 12.8 % (11.5-15.5); Specific Gravity,Urine 1.019 (1.001-1.035); Urobilinogen,Urine <2.0 mg/dL (<2.0)
[2020-01-31 22:28] LABS: ALT 30 U/L (4-49); AST 28 U/L (17-59); African American GFR (CKD) >90 (>60 ml/min/1.73 sqM); Albumin 4.4 g/dL (3.5-5.0); Alkaline Phosphatase 91 U/L (38-126); Amylase 48 U/L (30-110); Anion Gap 9 mmol/L; Blood Urea Nitrogen 10 mg/dL (9-20); Calcium 9.1 mg/dL (8.4-10.2); Carbon Dioxide 25 mmol/L (22-30); Chloride 106 mmol/L (98-107); Glucose 125 mg/dL (74-99); Non-African American GFR(CKD) 86 (>60 ml/min/1.73 sqM); Potassium 3.8 mmol/L (3.5-5.1); Sodium 140 mmol/L (137-145); Total Bilirubin 0.5 mg/dL (0.2-1.3); Total Protein 7.7 g/dL (6.3-8.2)
--- NOTE | 2020-02-01 01:05 | US ---
EXAMINATION TYPE: US abdomen limited DATE OF EXAM: 02/01/2020 COMPARISON: US 2019 CLINICAL HISTORY: attention RUQ. Attention RUQ. Pain x 1 week. EXAM MEASUREMENTS: Liver Length: 16.6 cm Gallbladder Wall: 0.32 cm CBD: Not visualized Right Kidney: 10.3 x 4.8 x 4.3 cm *Limited due to body habitus, gas, and images taken through the ribs. Pancreas: Not well seen due to overlying bowel gas. Liver: Appears to have an increased echogenicity. Hypoechoic area seen adjacent to the gallbladder m easurin.1 x 1.6 x 1.8 cm. Gallbladder: Appears to be anechoic Evidence for sonographic Landry's sign: No CBD: Not visualized Right Kidney: No hydronephrosis or masses seen IMPRESSION: No gallstones or dilated ducts. No focal liver defect.
[2020-02-01 01:23] VITALS: BP 126/77; PULSE 66; RESP 15; TEMP 98
== END 2020-02-01 01:21 | disposition home or self-care (01) ==
LOC: EC 21:15
DX: R10.11 Right upper quadrant pain (principal); E78.5 Hyperlipidemia, unspecified; Z79.899 Other long term (current) drug therapy; Z87.891 Personal history of nicotine dependence; Z88.5 Allergy status to narcotic agent
CPT/HCPCS: 36415; 76705; 80053; 81003; 82150; 83690; 85025; 99284

== ENCOUNTER → 2020-04-16 | Outpatient (CLI) | payer OTHER | END | disposition home or self-care (01) | LOC: RADMRIMAIN 13:35 | PROVIDERS: ATTEND Family Medicine | DX: Z53.9 Procedure and treatment not carried out, unspecified reason (principal) ==

== ENCOUNTER 2020-07-22 19:58 | Emergency (ER) | payer OTHER ==
[2020-07-22 20:08] VITALS: BP 126/83; PULSE 56; RESP 18; TEMP 97.9
[2020-07-22] MEDS ORDERED: AZITHROMYCIN 500 MG TAB PO STA (20:55)
[2020-07-22] MEDS ORDERED: DOXYCYCLINE 100 MG CAP PO STA (20:55)
[2020-07-22] MEDS ORDERED: cefTRIAXone 250 MG VIAL IM STA (20:55)
--- NOTE | 2020-07-22 20:57 | ED ---
Male Urogenital HPI - General Chief complaint: Urogenital Stated complaint: Male Time Seen by Provider: 07/22/20 20:29 Source: patient Mode of arrival: ambulatory Limitations: no limitations - History of Present Illness Initial comments: 45yo male presenting for penile lesion x3 days. pt states that the lesion looks worse today, red, slightly swollen. states its not tender to touch. denies concern for STI, hx of STI. pt denies syphilis history.statse he is . denies penile discharge or pain with urination. dneies fevers or testicular swelling/pain. Denies nausea, vomiting, abdominal pain, rashes, headaches, or neck stiffness. pt denies additional complaints. upon arrival he appears well nontoxic in no acute distress. - Related Data Home Medications Medication Instructions Recorded Confirmed Atorvastatin [Lipitor] 20 mg PO HS 03/04/19 08/06/19 Famotidine [Pepcid] 20 mg PO DAILY PRN 08/06/19 08/06/19 Previous Rx's Medication Instructions Recorded Verapamil Sr [Isoptin Sr] 120 mg PO DAILY tablet.er 09/30/17 Cyclobenzaprine [Flexeril] 10 mg PO TID #12 tab 08/06/19 Ibuprofen 600 mg PO TID #20 tablet 08/06/19 Ondansetron Odt [Zofran Odt] 4 mg PO Q8HR PRN #12 tab 08/06/19 Acyclovir [Zovirax] 400 mg PO TID 7 Days #21 tab 07/22/20 Doxycycline [Vibramycin] 100 mg PO BID 14 Days #28 capsule 07/22/20 Allergies Allergy/AdvReac Type Severity Reaction Status Date / Time morphine AdvReac Nausea & Verified 07/22/20 20:08 Vomiting Review of Systems ROS Statement: Those systems with pertinent positive or pertinent negative responses have been documented in the HPI. ROS Other: All systems not noted in ROS Statement are negative. Past Medical History Past Medical History: Atrial Fibrillation, Hyperlipidemia, Hypertension Additional Past Medical History / Comment(s): chronic back pain and hip pain History of Any Multi-Drug Resistant Organisms: None Reported Past Surgical History: No Surgical Hx Reported Past Anesthesia/Blood Transfusion Reactions: No Reported Reaction Past Psychological History: Depression Smoking Status: Never smoker Past Alcohol Use History: None Reported, Occasional Past Drug Use History: None Reported - Past Family History Father Family Medical History: Hypertension General Exam - General Exam Comments Initial Comments: General: The patient is awake and alert, in no distress, and does not appear acutely ill. Eye: Pupils are equal, round and reactive to light, extra-ocular movements are intact. No nystagmus. There is normal conjunctiva bilaterally. No signs of icterus. Ears, nose, mouth and throat: There are moist mucous membranes and no oral lesions. Gastrointestinal: Soft, non-distended, non-tender abdomen without masses or organomegaly noted. There is no rebound or guarding present : ulcerations, small over dorsum of penis, no penile drainage, lesions dont appear painful Musculoskeletal: Normal ROM, no tenderness. Strength 5/5. Sensation intact. Radial pulses equal bilaterally 2+. Neurological: A&O x 3. CN II-XII intact, There are no obvious motor or sensory deficits. Coordination appears grossly intact. Speech is normal. Skin: Skin is warm and dry and no rashes or lesions are noted. Psychiatric: Cooperative, appropriate mood & affect, normal judgment. Limitations: no limitations Course Vital Signs 07/22/20 20:06 Temperature 97.9 F Pulse Rate 56 L Respiratory 18 Rate Blood Pressure 126/83 O2 Sat by Pulse 97 Oximetry Medical Decision Making - Medical Decision Making Syphilis testing pending, doxycycline 100mg BID ordered as treatment. Pt given rocephin, azithromycin. pt will be treated with acyclovir and was tested for HSV1-2. Patient has no additional symptoms. ddx includes chancre, HSV, syphilis. patinet is agreeable to this care plan. recommended 2 days PCP f/u as well as urology f/u. pt discharged appearing well, dr mitchell agreeable to care plan. Disposition Clinical Impression: Penile lesion Disposition: HOME SELF-CARE Condition: Good Additional Instructions: Please use medication as discussed. Please follow-up with family doctor in the next 2 days as well as urology. Please return to emergency room if the symptoms increase or worsen or for any other concerns. Prescriptions: Doxycycline [Vibramycin] 100 mg PO BID 14 Days #28 capsule Acyclovir [Zovirax] 400 mg PO TID 7 Days #21 tab Is patient prescribed a controlled substance at d/c from ED?: No Referrals: Batool Alfred MD [Primary Care Provider] - 1-2 days Paul Sunshine MD [STAFF PHYSICIAN] - 1-2 days Time of Disposition: 20:57
== END 2020-07-22 21:30 | disposition home or self-care (01) ==
LOC: EC 19:58
DX: N48.89 Other specified disorders of penis (principal); E78.5 Hyperlipidemia, unspecified; Z88.5 Allergy status to narcotic agent; Z79.899 Other long term (current) drug therapy
CPT/HCPCS: 36415; 87529; 86780; 96372; 99284; J0696

== ENCOUNTER 2021-05-04 00:18 | Emergency (ER) | payer OTHER ==
[2021-05-04 00:23] VITALS: BP 150/88; PULSE 75; RESP 19; TEMP 97.8
[2021-05-04] MEDS ORDERED: PROPARACAINE 0.5% OPHTH DROPS 15 ML BTL LEFT EYE STA (00:34)
--- NOTE | 2021-05-04 01:20 | ED ---
Eye Problem HPI - General Chief complaint: Eye Problems Stated complaint: Left Eye Irritation Time Seen by Provider: 05/04/21 00:24 Source: patient, RN notes reviewed Mode of arrival: ambulatory - History of Present Illness Initial comments: Patient is a 46-year-old male that presents to the emergency department complaining of left eye irritation. He is unsure if he has something in it but has been doing well for the past several days. He notes he is tried flushing it at home with water with no relief. He notes that he does have an issue with people getting around his eyes and ears eyes. He did appear to be mildly anxious while pacing around the room. She denied any other issues or complaints at this time. He denied any chest pain shortness of breath headache nausea vomiting diarrhea constipation fever fatigue chills. - Related Data Home Medications Medication Instructions Recorded Confirmed Atorvastatin [Lipitor] 20 mg PO HS 03/04/19 08/06/19 Famotidine [Pepcid] 20 mg PO DAILY PRN 08/06/19 08/06/19 Previous Rx's Medication Instructions Recorded Verapamil Sr [Isoptin Sr] 120 mg PO DAILY tablet.er 09/30/17 Cyclobenzaprine [Flexeril] 10 mg PO TID #12 tab 08/06/19 Ibuprofen 600 mg PO TID #20 tablet 08/06/19 Ondansetron Odt [Zofran Odt] 4 mg PO Q8HR PRN #12 tab 08/06/19 Acyclovir [Zovirax] 400 mg PO TID 7 Days #21 tab 07/22/20 Doxycycline [Vibramycin] 100 mg PO BID 14 Days #28 capsule 07/22/20 Ciprofloxacin Ophth Soln [Cipro 1 drops LEFT EYE Q6H #5 ml 05/04/21 0.3% Ophth Soln] Allergies Allergy/AdvReac Type Severity Reaction Status Date / Time morphine AdvReac Nausea & Verified 05/04/21 00:22 Vomiting Review of Systems ROS Statement: Those systems with pertinent positive or pertinent negative responses have been documented in the HPI. ROS Other: All systems not noted in ROS Statement are negative. Past Medical History Past Medical History: Atrial Fibrillation, Hyperlipidemia, Hypertension Additional Past Medical History / Comment(s): chronic back pain and hip pain History of Any Multi-Drug Resistant Organisms: None Reported Past Surgical History: No Surgical Hx Reported Past Anesthesia/Blood Transfusion Reactions: No Reported Reaction Past Psychological History: Depression Smoking Status: Never smoker Past Alcohol Use History: None Reported, Occasional Past Drug Use History: None Reported - Past Family History Father Family Medical History: Hypertension General Exam General appearance: alert, in no apparent distress Head exam: Present: atraumatic, normocephalic, normal inspection Eye exam: Present: normal appearance, PERRL, EOMI. Absent: scleral icterus, conjunctival injection, periorbital swelling Expanded Eyelids: Normal Inspection: Bilateral Pupils: Regular, Round: Bilateral, Reactive: Bilateral Sclera/Conjunctival: Foreign Body: Left (I lateral aspect of left eye) Anterior chamber: Normal Inspection: Bilateral Visual acuity (R) = 20/: 20 Visual acuity (L) = 20/: 25 Neck exam: Present: normal inspection Respiratory exam: Present: normal lung sounds bilaterally. Absent: respiratory distress, wheezes, rales, rhonchi, stridor Cardiovascular Exam: Present: regular rate, normal rhythm, normal heart sounds. Absent: systolic murmur, diastolic murmur, rubs, gallop, clicks Extremities exam: Present: normal inspection, full ROM, normal capillary refill. Absent: tenderness, pedal edema, joint swelling, calf tenderness Neurological exam: Present: alert, oriented X3 Psychiatric exam: Present: normal affect, normal mood Skin exam: Present: warm, dry, intact, normal color. Absent: rash Course Vital Signs 05/04/21 00:20 Temperature 97.8 F Pulse Rate 75 Respiratory 19 Rate Blood Pressure 150/88 O2 Sat by Pulse 98 Oximetry Medical Decision Making - Medical Decision Making 46-year-old male with left eye irritation and possible foreign body in left eye. Proparacaine drops, eye irrigation ordered. Proparacaine drops administered, reevaluation eye reveals foreign body was dislodged and removed. She will be sent antibiotic eyedrops. His discussed with Dr. Avila, patient discharge home. Disposition Clinical Impression: Foreign body of left eye, Corneal abrasion Disposition: HOME SELF-CARE Condition: Stable Instructions (If sedation given, give patient instructions): Eye Foreign Body (ED) Additional Instructions: Please return to the Emergency Department if symptoms worsen or any other concerns. Take Tylenol Motrin as needed for pain. Use antibiotic eyedrops as prescribed. For 5 days. Prescriptions: Ciprofloxacin Ophth Soln [Cipro 0.3% Ophth Soln] 1 drops LEFT EYE Q6H #5 ml Is patient prescribed a controlled substance at d/c from ED?: No Referrals: Batool Alfred MD [Primary Care Provider] - 1-2 days Time of Disposition: 01:44
== END 2021-05-04 01:53 | disposition home or self-care (01) ==
LOC: EC 00:18
DX: T15.92XA Foreign body on external eye, part unspecified, left eye, initial encounter (principal); S05.02XA Injury of conjunctiva and corneal abrasion without foreign body, left eye, initial encounter; I10 Essential (primary) hypertension; E78.5 Hyperlipidemia, unspecified; I48.91 Unspecified atrial fibrillation; F32.9 Major depressive disorder, single episode, unspecified; X58.XXXA Exposure to other specified factors, initial encounter
CPT/HCPCS: 99283

== ENCOUNTER → 2023-06-02 | Outpatient (CLI) | payer OTHER ==
[2023-06-02 10:57] LABS: Basophils # (A) 0.09 X 10*3/uL (0.00-0.10); Basophils % (A) 1.2 %; Eosinophils # (A) 0.21 X 10*3/uL (0.04-0.35); Eosinophils % (A) 2.9 %; HCT 48.3 % (39.6-50.0); HGB 15.8 d/dL (13.0-17.0); Lymphocytes # (A) 2.08 X 10*3/uL (0.90-5.00); Lymphocytes % (A) 28.8 %; MCH 28.5 pg (27.0-32.0); MCHC 32.7 d/dL (32.0-37.0); MCV 87.2 FL (80.0-97.0); Mean Platelet Volume 10.3 FL (9.5-12.2); Monocytes # (A) 0.85 X 10*3/uL (0.20-1.00); Monocytes % (A) 11.8 %; NRBC Per 100 WBC 0 X 10*3/uL (0.00-0.01); Neutrophils # (A) 3.96 X 10*3/uL (1.80-7.70); Platelet Count 353 X 10*3/uL (140-440); RBC 5.54 X 10*6/uL (4.40-5.60); WBC 7.21 X 10*3/uL (4.50-10.00)
[2023-06-02 11:47] LABS: ALT 28 U/L (10-49); AST 24 U/L (14-35); Albumin 4.2 d/dL (3.8-4.9); Albumin/Globulin Ratio 1.31 Ratio (1.60-3.17); Alkaline Phosphatase 111 U/L (41-126); Blood Urea Nitrogen 8.4 mg/dL (9.0-27.0); Calcium 9.6 mg/dL (8.7-10.3); Chloride 106 mmol/L (96-109); Globulin 3.2 d/dL (1.6-3.3); Glucose 115 mg/dL (70-110); LDL Cholesterol,Calculated 123.1 mg/dL (0.0-131.0); Potassium 4.4 mmol/L (3.5-5.5); Sodium 144 mmol/L (135-145); Total Bilirubin 0.5 mg/dL (0.3-1.2); Total Protein 7.4 d/dL (6.2-8.2)
[2023-06-02 12:16] LABS: PSA Annual Screen 0.869 ng/mL (0.000-4.000)
== END | disposition home or self-care (01) ==
LOC: LABWHC1 08:16
PROVIDERS: ATTEND Family Medicine
DX: Z00.00 Encounter for general adult medical examination without abnormal findings (principal); Z12.5 Encounter for screening for malignant neoplasm of prostate; F41.9 Anxiety disorder, unspecified; E55.9 Vitamin D deficiency, unspecified; E78.2 Mixed hyperlipidemia
CPT/HCPCS: 80061; 80053; 84443; 85025; 82306; 36415; G0103

== ENCOUNTER 2023-07-07 10:10 | Emergency (ER) | payer OTHER ==
[2023-07-07 10:43] VITALS: BP 117/86; PULSE 71; RESP 20; TEMP 98.2
[2023-07-07] MEDS ORDERED: IBUPROFEN 800 MG TAB PO STA (11:07)
--- NOTE | 2023-07-07 11:33 | XR ---
EXAMINATION TYPE: XR ankle complete RT DATE OF EXAM: 07/07/2023 COMPARISON: NONE HISTORY: Pain TECHNIQUE: Frontal, lateral and oblique images of the right ankle are obtained. COMPARISON: None. FINDINGS: There is no acute fracture/dislocation evident. The joint spaces appear within normal chopra its. The overlying soft tissue appears unremarkable. IMPRESSION: There is no acute fracture or dislocation seen.
[2023-07-07] MEDS ORDERED: CEPHALEXIN 500 MG CAP PO STA (12:42)
[2023-07-07] MEDS ORDERED: CEPHALEXIN 500MG STARTER PACK 4 CAP BTL PO STA (12:46)
--- NOTE | 2023-08-03 09:06 | ED ---
General Adult HPI - General Chief complaint: Extremity Injury, Lower Stated complaint: R ankle pain Time Seen by Provider: 07/07/23 10:37 Source: patient, RN notes reviewed Mode of arrival: ambulatory Limitations: no limitations - History of Present Illness Initial comments: 48-year-old male with no significant past medical history presents the emergency department the chief complaint of ankle pain. Patient reports left ankle pain for the last 3 days. Denies any known injury or trauma. Denies numbness or tingling, weakness. He has been taking [id number] remedies eyes any fever, chills, erythema or ecchymosis to the site. - Related Data Home Medications Medication Instructions Recorded Confirmed Atorvastatin [Lipitor] 20 mg PO HS 03/04/19 08/06/19 Famotidine [Pepcid] 20 mg PO DAILY PRN 08/06/19 08/06/19 Previous Rx's Medication Instructions Recorded Verapamil Sr [Isoptin Sr] 120 mg PO DAILY tablet.er 09/30/17 Cyclobenzaprine [Flexeril] 10 mg PO TID #12 tab 08/06/19 Ibuprofen 600 mg PO TID #20 tablet 08/06/19 Ondansetron Odt [Zofran Odt] 4 mg PO Q8HR PRN #12 tab 08/06/19 Acyclovir [Zovirax] 400 mg PO TID 7 Days #21 tab 07/22/20 Doxycycline [Vibramycin] 100 mg PO BID 14 Days #28 capsule 07/22/20 Ciprofloxacin Ophth Soln [Cipro 1 drops LEFT EYE Q6H #5 ml 05/04/21 0.3% Ophth Soln] Allergies Allergy/AdvReac Type Severity Reaction Status Date / Time morphine AdvReac Nausea & Verified 07/07/23 10:35 Vomiting Review of Systems ROS Statement: Those systems with pertinent positive or pertinent negative responses have been documented in the HPI. ROS Other: All systems not noted in ROS Statement are negative. Past Medical History Past Medical History: Atrial Fibrillation, Hyperlipidemia, Hypertension Additional Past Medical History / Comment(s): chronic back pain and hip pain History of Any Multi-Drug Resistant Organisms: None Reported Past Surgical History: No Surgical Hx Reported Past Anesthesia/Blood Transfusion Reactions: No Reported Reaction Past Psychological History: Depression Smoking Status: Never smoker Past Alcohol Use History: None Reported, Occasional Past Drug Use History: None Reported - Past Family History Father Family Medical History: Hypertension General Exam - General Exam Comments Initial Comments: General: Alert, in no acute distress Head: atraumatic normocephalic. Eyes PERRL, EOMI intact, mucous membranes moist Respiratory: Lungs clear to auscultation bilaterally Cardiovascular: Heart rate regular rate and rhythm Abdominal: Soft without guarding or rebound Extremities: Normal inspection with full range of motion and normal capillary refill, right ankle without gross deformity or ecchymosis. Limited range of motion secondary to pain. 2+ DP/PT pulses. Distal neurovascular intact Neuroogic: alert and oriented 3, CN II-XII intact, able to ambulate with steady gait Skin: warm dry and intact with normal color Limitations: no limitations Course Vital Signs 07/07/23 10:33 Temperature 98.2 F Pulse Rate 71 Respiratory 20 Rate Blood Pressure 117/86 O2 Sat by Pulse 99 Oximetry Medical Decision Making - Medical Decision Making Was pt. sent in by a medical professional or institution (, PA, MACHINIST INSTRUCTOR, urgent care, hospital, or snf...) When possible be specific @ -[No] Did you speak to anyone other than the patient for history (EMS, parent, family, police, friend...)? What history was obtained from this source @ -[No] Did you review nursing and triage notes (agree or disagree)? Why? @ -[I reviewed and agree with nursing and triage notes] Were old charts reviewed (outside hosp., previous admission, EMS record, old EKG, old radiological studies, urgent care reports/EKG's, snf records)? Report findings @ -[No old charts were reviewed] Differential Diagnosis (chest pain, altered mental status, abdominal pain women, abdominal pain men, vaginal bleeding, weakness, fever, dyspnea, syncope, headache, dizziness, GI bleed, back pain, seizure, CVA, palpatations, mental health, musculoskeletal)? @ -[not applicable] EKG interpreted by me (3pts min.). @ -[As above] X-rays interpreted by me (1pt min.). @ -Ankle x-ray does not reveal any acute fracture or dislocation. No gross edema CT interpreted by me (1pt min.). @ -[None done] U/S interpreted by me (1pt. min.). @ -[None done] What testing was considered but not performed or refused? (CT, X-rays, U/S, labs)? Why? @ -[None] What meds were considered but not given or refused? Why? @ -[None] Did you discuss the management of the patient with other professionals (professionals i.e. , PA, MACHINIST INSTRUCTOR, lab, RT, psych nurse, healthcare social worker, toll bridge operator, teacher, tactical deception plans officer, bilingual case manager)? Give summary @ -[No] Was smoking cessation discussed for >3mins.? @ -[No] Was critical care preformed (if so, how long)? @ -[No] Were there social determinants of health that impacted care today? How? (Homelessness, low income, unemployed, alcoholism, drug addiction, transportation, low edu. Level, literacy, decrease access to med. care, custodial, rehab)? @ -[No] Was there de-escalation of care discussed even if they declined (Discuss DNR or withdrawal of care, Hospice)? DNR status @ -[No] What co-morbidities impacted this encounter? (DM, HTN, Smoking, COPD, CAD, Cancer, CVA, ARF, Chemo, Hep., AIDS, mental health diagnosis, sleep apnea, morbid obesity)? @ -[None] Was patient admitted / discharged? Hospital course, mention meds given and route, prescriptions, significant lab abnormalities, going to OR and other pertinent info. @ Left AGAINST MEDICAL ADVICE. This is a pleasant 40-year-old male presents the emergency department with ankle pain. Patient had a thorough history and physical exam performed. Physical exam unremarkable. Limited range of motion secondary to pain. 2+ DT/PT pulses distal neurovascular intact. Patient had x-rays which were negative. Patient eloped from the emergency department prior to completion of care and x-ray results. Discussed with Dr. hudson, ED attending who agrees with plan of care Undiagnosed new problem with uncertain prognosis? @ -[No] Drug Therapy requiring intensive monitoring for toxicity (Heparin, Nitro, Insulin, Cardizem)? @ -[No] Were any procedures done? @ -[No] Diagnosis/symptom? @ -Right ankle Pain Acute, or Chronic, or Acute on Chronic? @ Acute Uncomplicated (without systemic symptoms) or Complicated (systemic symptoms)? @ -Uncomplicated Side effects of treatment? @ -[No] Exacerbation, Progression, or Severe Exacerbation? @ -[No] Poses a threat to life or bodily function? How? (Chest pain, [place], [place], pneumonia, PE, COPD, DKA, ARF, appy, cholecystitis, CVA, Diverticulitis, Homicidal, Suicidal, threat to staff... and all critical care pts) @ -Low likelihood Disposition Clinical Impression: Ankle pain Disposition: LEFT AGAINST MEDICAL ADVICE Condition: Undetermined Referrals: Giovanni Lucio [Primary Care Provider] - 1-2 days Time of Disposition: 09:06
== END 2023-07-07 13:20 | disposition left against medical advice (07) ==
LOC: EC 10:10
DX: M25.571 Pain in right ankle and joints of right foot (principal); I48.91 Unspecified atrial fibrillation; E78.5 Hyperlipidemia, unspecified; I10 Essential (primary) hypertension; Z86.59 Personal history of other mental and behavioral disorders; Z88.5 Allergy status to narcotic agent; Z79.899 Other long term (current) drug therapy; Z53.29 Procedure and treatment not carried out because of patient's decision for other reasons
CPT/HCPCS: 99283

== ENCOUNTER → 2023-07-25 | Outpatient (CLI) | payer OTHER ==
[2023-07-25 16:16] LABS: ALT 26 U/L (10-49); AST 24 U/L (14-35); Chol/HDL Ratio 5.06 Ratio; LDL Cholesterol,Calculated 111.6 mg/dL (0.0-131.0)
== END | disposition home or self-care (01) ==
LOC: LABWHC1 08:58
PROVIDERS: ATTEND Family Medicine
DX: E78.2 Mixed hyperlipidemia (principal); R73.9 Hyperglycemia, unspecified
CPT/HCPCS: 36415; 80061; 83036; 84450; 84460

== ENCOUNTER → 2023-12-06 | Outpatient (CLI) | payer OTHER ==
--- NOTE | 2023-12-08 16:52 | XR ---
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 There appear to be bilateral L5 pars def ects with grade 1 anterolisthesis of L5-S1 and mild degenerative disc disease here. Facet arthropathy lower lumbar spine. Vertebral body heights are preserved. Remaining alignment is maintained. Impression: 1. 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 2. L5 pars defects with grade 1 anterolisthesis at L5-S1. The degree of anterolisthesis has worsened compared to 2018. 3. Mild degenerative disc disease has also developed here at L5-S1 as well as facet arthropathy in th e lower lumbar spine.
== END | disposition home or self-care (01) ==
LOC: RADXRMAIN 10:13
PROVIDERS: ATTEND Family Medicine
DX: M43.17 Spondylolisthesis, lumbosacral region (principal); M51.37 Other intervertebral disc degeneration, lumbosacral region; M47.816 Spondylosis without myelopathy or radiculopathy, lumbar region
CPT/HCPCS: 72100

== ENCOUNTER 2024-10-28 15:05 | Emergency (ER) | payer OTHER ==
--- NOTE | 2024-10-28 15:38 | ED ---
Wound/Laceration HPI - General Chief Complaint: Wound/Laceration Stated Complaint: cut on finger Time Seen by Provider: 10/28/24 15:20 Source: patient, RN notes reviewed Mode of arrival: ambulatory Limitations: no limitations - History of Present Illness Initial Comments: 49-year-old male presents emergency department for complaint of a laceration to the left fourth digit that occurred on Tuesday. Patient states that he using a knife to separate frozen burger patties and he accidentally injured his left ring finger. States that he has been experiencing intermittent bleeding from the injury since. Last tetanus vaccination within the last 5 years. Denies blood thinner use. No other acute complaints this time. - Related Data Home Medications Medication Instructions Recorded Confirmed Atorvastatin [Lipitor] 20 mg PO HS 03/04/19 08/06/19 Famotidine [Pepcid] 20 mg PO DAILY PRN 08/06/19 08/06/19 Previous Rx's Medication Instructions Recorded Verapamil Sr [Isoptin Sr] 120 mg PO DAILY tablet.er 09/30/17 Cyclobenzaprine [Flexeril] 10 mg PO TID #12 tab 08/06/19 Ibuprofen 600 mg PO TID #20 tablet 08/06/19 Ondansetron Odt [Zofran Odt] 4 mg PO Q8HR PRN #12 tab 08/06/19 Acyclovir [Zovirax] 400 mg PO TID 7 Days #21 tab 07/22/20 Doxycycline [Vibramycin] 100 mg PO BID 14 Days #28 capsule 07/22/20 Ciprofloxacin Ophth Soln [Cipro 1 drops LEFT EYE Q6H #5 ml 05/04/21 0.3% Ophth Soln] Allergies Allergy/AdvReac Type Severity Reaction Status Date / Time morphine AdvReac Nausea & Verified 07/07/23 10:35 Vomiting Review of Systems ROS Statement: Those systems with pertinent positive or pertinent negative responses have been documented in the HPI. ROS Other: All systems not noted in ROS Statement are negative. Past Medical History Past Medical History: Atrial Fibrillation, Hyperlipidemia, Hypertension Additional Past Medical History / Comment(s): chronic back pain and hip pain History of Any Multi-Drug Resistant Organisms: None Reported Past Surgical History: No Surgical Hx Reported Past Anesthesia/Blood Transfusion Reactions: No Reported Reaction Past Psychological History: Depression Smoking Status: Never smoker Past Alcohol Use History: None Reported, Occasional Past Drug Use History: None Reported - Past Family History Father Family Medical History: Hypertension General Exam Limitations: no limitations General appearance: alert, in no apparent distress ENT exam: Present: normal exam, mucous membranes moist Neck exam: Present: normal inspection. Absent: tenderness, meningismus, lymphadenopathy Respiratory exam: Present: normal lung sounds bilaterally. Absent: respiratory distress, wheezes, rales, rhonchi, stridor Cardiovascular Exam: Present: regular rate, normal rhythm, normal heart sounds. Absent: systolic murmur, diastolic murmur, rubs, gallop, clicks GI/Abdominal exam: Present: soft, normal bowel sounds. Absent: distended, tenderness, guarding, rebound, rigid Left Hand Wrist exam: Present: other (4 mm laceration to distal 4th digit fingertip, no active bleeding) Neuro motor exam: Present: wrist extension intact, thumb opposition intact, thumb IP flexion intact Vascular: Present: normal capillary refill, radial pulse (2+). Absent: vascular compromise Back exam: Present: normal inspection Course Vital Signs 10/28/24 10/28/24 15:17 16:09 Temperature 98 F 97.8 F Pulse Rate 79 74 Respiratory 16 18 Rate Blood Pressure 123/78 142/87 O2 Sat by Pulse 94 L 95 Oximetry Medical Decision Making - Medical Decision Making Was pt. sent in by a medical professional or institution (BROCK Perry, COUNTER TENDER, urgent care, hospital, or [place] [facility] facility...) When possible be specific @ -No Did you speak to anyone other than the patient for history (EMS, parent, family, police, friend...)? What history was obtained from this source @ -No Did you review nursing and triage notes (agree or disagree)? Why? @ -I reviewed and agree with nursing and triage notes Were old charts reviewed (outside hosp., previous admission, EMS record, old EKG, old radiological studies, urgent care reports/EKG's, [place] [facility] facility records)? Report findings @ -No old charts were reviewed Differential Diagnosis (chest pain, altered mental status, abdominal pain women, abdominal pain men, vaginal bleeding, weakness, fever, dyspnea, syncope, heada roshni, dizziness, GI bleed, back pain, seizure, CVA, palpatations, mental health, musculoskeletal)? @ -Laceration, skin avulsion, tendon injury, this list is not all inclusive EKG interpreted by me (3pts min.). @ -None X-rays interpreted by me (1pt min.). @ -None done CT interpreted by me (1pt min.). @ -None done U/S interpreted by me (1pt. min.). @ -None done What testing was considered but not performed or refused? (CT, X-rays, U/S, labs)? Why? @ -None What meds were considered but not given or refused? Why? @ -None Did you discuss the management of the patient with other professionals (ashlyn carpenter i.e. , PA, COUNTER TENDER, lab, RT, psych nurse, social sciences chair, vice president, teacher, training systems officer, housing case manager)? Give summary @ -No Was smoking cessation discussed for >3mins.? @ -No Was critical care preformed (if so, how long)? @ -No Were there social determinants of health that impacted care today? How? (Homelessness, low income, unemployed, alcoholism, drug addiction, transportation, low edu. Level, literacy, decrease access to med. care, care home, rehab)? @ -No Was there de-escalation of care discussed even if they declined (Discuss DNR or withdrawal of care, Hospice)? DNR status @ -No What co-morbidities impacted this encounter? (DM, HTN, Smoking, COPD, CAD, Cancer, CVA, ARF, Chemo, Hep., AIDS, mental health diagnosis, sleep apnea, morbid obesity)? @ -None Was patient admitted / discharged? Hospital course, mention meds given and route, prescriptions, significant lab abnormalities, going to OR and other pertinent info. @ -Discharge. 49-year-old male presenting with laceration to left fourth digit. Noted to be 4 mm with no active bleeding. Neurovascularly intact. Patient is up-to-date on his tetanus vaccine. Area was cleansed with sterile water and Betadine solution and appropriately cleansed. Return parameters in regard to infection have been discussed with patient at bedside. Case discussed with Dr. Day Undiagnosed new problem with uncertain prognosis? @ -No Drug Therapy requiring intensive monitoring for toxicity (Heparin, Nitro, Insulin, Cardizem)? @ -No Were any procedures done? @ -No Diagnosis/symptom? @ -Laceration Acute, or Chronic, or Acute on Chronic? @ -Acute Uncomplicated (without systemic symptoms) or Complicated (systemic symptoms)? @ -Uncomplicated Side effects of treatment? @ -No Exacerbation, Progression, or Severe Exacerbation? @ -No Poses a threat to life or bodily function? How? (Chest pain, [place], [place], pneumonia, PE, COPD, DKA, ARF, appy, cholecystitis, CVA, Diverticulitis, Homicidal, Suicidal, threat to staff... and all critical care pts) @ -No Disposition Clinical Impression: Laceration Disposition: HOME SELF-CARE Condition: Good Instructions (If sedation given, give patient instructions): Finger Laceration (ED) Additional Instructions: Please return to the Emergency Department if symptoms worsen or any other concerns. Is patient prescribed a controlled substance at d/c from ED?: No Referrals: Feliz Basurto MD [Primary Care Provider] - 1-2 days Time of Disposition: 15:38
[2024-10-28 16:10] VITALS: BP 142/87; PULSE 74; RESP 18; TEMP 97.8
== END 2024-10-28 16:13 | disposition home or self-care (01) ==
LOC: EC 15:05
DX: S61.215A Laceration without foreign body of left ring finger without damage to nail, initial encounter (principal); Z88.5 Allergy status to narcotic agent; W26.0XXA Contact with knife, initial encounter
CPT/HCPCS: 12001; 99282